=== PATIENT | female | born 1965 | race African-American/Black ===

== ENCOUNTER 2016-05-22 16:45 | Inpatient (IN) | payer OTHER, MEDICAID ==
[2016-05-22 17:56] VITALS: BMI 42.5
[2016-05-22] MEDS ORDERED: PHARMACY CONSULT - DOSE _____ XX SCH (18:00)
[2016-05-22] MEDS ORDERED: LEVAQUIN PREMIX IV 750 MG 750 MG/150 ML BAG IV SCH (18:00)
[2016-05-22] MEDS ORDERED: NS 1/2 1000 ML IV 1,000 ML IV ONE (18:45)
--- NOTE | 2016-05-22 18:50 | RAD ---
HISTORY: Pneumonia Study: PA and lateral chest Comparison: June 17, 2015 Findings: The trachea is midline. The cardiac silhouette is normal. There is a right subclavian Port-A-Cath w hich appears kinked as it passes underneath the clavicle. It projects into the left subclavian vein from the right.. The lungs are clear without focal infiltrate or effusion. The bony thorax is unre markable. IMPRESSION: 1. No acute cardiopulmonary disease. 2. Apparent kink of the right Port-A-Cath undo the right clavicle Reported By:
[2016-05-22] MEDS: TAMIFLU PO SCH ×2 (18:53→21:16)
[2016-05-22] MEDS: NS 1/2 1000 ML IV 1,000 ML IV SCH (18:54)
[2016-05-22] MEDS ORDERED: SALINE 3% 15 ML NEB TX NEB ONE (19:34)
[2016-05-22 19:37] LABS: BASOPHILS # (AUTO) 0.1 X10^3/uL (0.0-0.1); BASOPHILS % (AUTO) 0.9 % (0.2-1.0); EOSINOPHILS # (AUTO) 0.1 x10^3/uL (0.0-0.2); EOSINOPHILS % (AUTO) 1.4 % (0.9-2.9); HEMATOCRIT 38.9 % (36.0-47.0); HEMOGLOBIN 12.9 g/dL (12.0-16.0); LYMPHOCYTES # (AUTO) 2.6 X10^3/uL (1.3-2.9); LYMPHOCYTES % (AUTO) 28.7 % (21.0-51.0); MEAN CORPUSCULAR HEMOGLOBIN 24.9 pg (27.0-34.0); MEAN CORPUSCULAR HGB CONC 33.2 g/dL (33.0-35.0); MEAN PLATELET VOLUME 8.6 fL (7.4-11.0); MONOCYTES # (AUTO) 0.5 x10^3/uL (0.3-0.8); NEUTROPHILS # (AUTO) 5.8 x10^3/uL (2.2-4.8); PLATELET COUNT 237 X10^3/uL (150.0-450.0); RED BLOOD COUNT 5.18 X10^6/uL (3.5-5.4); RED CELL DISTRIBUTION WIDTH 16.1 % (11.6-16.5); WHITE BLOOD COUNT 9.1 X10^3/uL (3.6-10.0)
[2016-05-22 19:46] LABS: HYPOCHROMASIA SLIGHT; PLATELET MORPHOLOGY COMMENT NORMAL (NORMAL); TARGET CELLS FEW
[2016-05-22 21:02] LABS: ALANINE AMINOTRANSFERASE 85 Units/L (12-78); ALBUMIN 3.2 g/dL (3.4-5.0); ALKALINE PHOSPHATASE 217 Units/L (46-116); ASPARTATE AMINO TRANSFERASE 44 Units/L (15-37); BLOOD UREA NITROGEN 9 mg/dL (7-18); CALCIUM 8.5 mg/dL (8.5-10.1); CARBON DIOXIDE 24.8 mmol/L (21-32); CHLORIDE 99 mmol/L (98-107); COR CA(FOR HYPOALB) 9.1 mg/dL (8.5-10.1); COR NA(FOR HYPERGLY) 142 mmol/L (136-145); CREATININE 0.96 mg/dL (0.55-1.02); GLUCOSE 327 mg/dL (65-99); SODIUM 137 mmol/L (136-145); TOTAL PROTEIN 8.1 g/dL (6.4-8.2); eGFR BLACK RACES > 60 (>60); eGFR NON BLACK RACES > 60 (>60)
[2016-05-22] MEDS: ROBITUSSIN DM PO SCH (21:16)
[2016-05-22] MEDS: TUSSIONEX PENNKINETIC SUSP PO PRN (21:16)
[2016-05-22] MEDS: DUONEB 0.5 MG/3 MG NEB SCH (21:30)
[2016-05-22] MEDS: HUMULIN R SUBCUT PRN (22:47)
[2016-05-23] MEDS: PERCOCET TAB 5/325 MG PO PRN (03:59)
[2016-05-23] MEDS: HUMULIN R SUBCUT PRN ×4 (06:24→22:02)
[2016-05-23] MEDS ORDERED: [UNRECOGNIZED DRUG - OTHER] SUBCUT PRN (09:03)
[2016-05-23] MEDS ORDERED: PATIENT'S HOME MEDICATION RESPIRATORY (Oxycodone W/ Acetaminophen [Oxycodone/Acetaminophen PO PRN (09:10)
[2016-05-23] MEDS ORDERED: [UNRECOGNIZED DRUG - OTHER] PO SCH (09:15)
[2016-05-23] MEDS ORDERED: TORADOL 30 MG VIAL IVP PRN (09:28)
[2016-05-23] MEDS: DUONEB 0.5 MG/3 MG NEB SCH ×4 (09:42→21:18)
[2016-05-23] MEDS ORDERED: NS 1/2 1000 ML IV 1,000 ML IV ONE (10:10)
[2016-05-23] MEDS: NS 1/2 1000 ML IV 1,000 ML IV SCH ×2 (10:16→22:56)
[2016-05-23] MEDS: NORVASC TAB 10 MG PO SCH (10:17)
[2016-05-23] MEDS: ROBITUSSIN DM PO SCH ×4 (10:17→21:43)
[2016-05-23] MEDS: TAMIFLU PO SCH ×2 (10:18→21:43)
[2016-05-23] MEDS: CARAFATE PO SCH ×2 (10:18→21:44)
[2016-05-23] MEDS: JANUVIA PO SCH (10:18)
[2016-05-23] MEDS: ZANAFLEX PO SCH ×2 (10:18→21:43)
[2016-05-23] MEDS: AMARYL TAB 4 MG PO SCH ×2 (10:19→21:44)
[2016-05-23] MEDS: LINZESS PO SCH (10:19)
[2016-05-23] MEDS: CYMBALTA PO SCH (10:19)
[2016-05-23] MEDS: SINGULAIR TAB 10 MG PO SCH (10:19)
[2016-05-23] MEDS: DILAUDID IVP PRN ×3 (10:20→21:46)
[2016-05-23] MEDS: BENTYL CAP 10 MG PO SCH ×3 (12:35→21:43)
[2016-05-23] MEDS: LANTUS SC SCH ×2 (12:36→22:02)
[2016-05-23] MEDS ORDERED: [UNRECOGNIZED DRUG - OTHER] PO SCH (13:00)
--- NOTE | 2016-05-23 14:27 | DR.UPDATE ---
H&P Update History and Physical Update: H&P UPDATE FOR ADMISSION 05/22/16 MS. CUNNINGHAM'S H&P WAS COMPLETED IN OUR OFFICE PRIOR TO ADMISSION. SHE HAS BEEN SEEN AND EXAMINED WITH NO CHANGES NOTED.
--- NOTE | 2016-05-23 16:13 | PCM.PROG ---
Progress Note - Progress Note for Day of Date: 05/23/16 - Subjective Subjective: PATIENT REPORTS BODY ACHES AND PERSISTENT COUGH THIS MORNING. PATIENT IS ADMITTED FOR BRONCHOPNEUMONIA AND CONTINUES ON THE PNEUMONIA PROTOCOL. SHE REPORTS FATIGUE AND MALAISE. COUGH IS PERSISTENT, MOIST, NON- PRODUCTIVE. ON AUSCULTATION, LUNGS ARE NOTED WITH SCATTERED WHEEZING THROUGHOUT. PATIENT REPORTS ABDOMINAL PAIN AND IS NOTED WITH DIFFUSE TENDERNESS ON PALPATION. PATIENT HAS HAD A CT SCAN OF ABDOMEN ON 04/30/16 AND IT REPORTED CHRONIC FLUID COLLECTION IN THE LOW MIDLINE RECTUS ABDOMINUS MUSCLE THAT MAY REPRESENT A SEROMA. THIS IS A CHRONIC FINDING IT HAS BEEN SEEN ON A PRIOR CT OF ABDOMEN. THIS SEROMA WAS ASPIRATED ON 10/08/15 AND CULTURES WERE NEGATIVE. WE WILL CONTINUE WITH IV FLUIDS AND START IV TORADOL AND DILAUDID FOR PAIN. WE WILL CONTINUE IV LEVAQUIN, ROBITUSSIN, DUONEBS AND FOLLOW UP IN AM WITH LABS AND CHEST XRAY. - Past Medical Family Social History Past Med/Fam/Surg Hx: No changes since H&P Allergies: Allergies Aspirin Adverse Reaction (Mild, Verified 08/20/15 14:17) NAUSEA - Review of Systems ROS: No change since H&P - Vital Signs and I&O's Vital Signs: Temperature 98.7 F Pulse Rate [Right Superficial 94 Temporal] Pulse Rate 89 Respiratory Rate 16 Blood Pressure [Right Arm] 109/69 Blood Pressure [Left Arm] 133/69 Blood Pressure 133/69 O2 Sat by Pulse Oximetry 99 Intake and Output: Intake & Output 05/21/16 05/22/16 05/23/16 05/24/16 11:59 11:59 11:59 11:59 Intake Total 120 Output Total 1000 Balance -880 - Physical Exam Oriented: Normal, Time, Person, Place Eyes: Normal. negative: Blurred Vision, Diplopia, Discharge, Pain, Redness, Photophobia Ear: Normal. negative: Swelling, Ecchymosis, Hemotypanum, Abrasion, Laceration Nose: Normal. negative: Injected, Discharge, Blood Throat: Dry. negative: Tonsillar Hypertrophy, Exudate Respiratory: Generalized, Wheezes Cardiovascular: Normal. negative: Murmur, Edema : Normal. negative: Dysuria, Hematuria, Frequency, Discharge, Bleeding, Auscultation: Bowel Sounds: Normal. negative: Bruit Palpation: Normal. negative: Spleen Enlarged, Liver Enlarged, Mass Pulsatile Tenderness: Diffuse, Moderate. negative: Rebound, Guarding, Rigidity Skin: Normal. negative: Diaphoresis, Wound, Bruising, Ecchymosis Musculoskeletal: Normal Psychiatric: Normal Mood Description: Calm, Appropriate Affect: Normal Speech Pattern: Clear, Appropriate - Laboratory and Diagnostics Result Diagrams: 05/22/16 19:15 05/22/16 19:15 Labs: Laboratory WBC 9.1 X10^3/uL (3.6-10.0) 05/22/16 19:15 RBC 5.18 X10^6/uL (3.5-5.4) 05/22/16 19:15 Hgb 12.9 g/dL (12.0-16.0) 05/22/16 19:15 Hct 38.9 % (36.0-47.0) 05/22/16 19:15 MCV 75.0 fL (80.0-100.0) L 05/22/16 19:15 MCH 24.9 pg (27.0-34.0) L 05/22/16 19:15 MCHC 33.2 g/dL (33.0-35.0) 05/22/16 19:15 RDW 16.1 % (11.6-16.5) 05/22/16 19:15 Plt Count 237 X10^3/uL (150.0-450.0) 05/22/16 19:15 Plt Count Comment Adequate (ADEQUATE) 05/22/16 19:15 MPV 8.6 fL (7.4-11.0) 05/22/16 19:15 Neut % 64.0 % (42.0-75.0) 05/22/16 19:15 Lymph % 28.7 % (21.0-51.0) 05/22/16 19:15 Scott % 5.0 % (0.0-13.0) 05/22/16 19:15 Eos % 1.4 % (0.9-2.9) 05/22/16 19:15 Baso % 0.9 % (0.2-1.0) 05/22/16 19:15 Neut # 5.8 x10^3/uL (2.2-4.8) H 05/22/16 19:15 Lymph # 2.6 X10^3/uL (1.3-2.9) 05/22/16 19:15 Scott # 0.5 x10^3/uL (0.3-0.8) 05/22/16 19:15 Eos # 0.1 x10^3/uL (0.0-0.2) 05/22/16 19:15 Baso # 0.1 X10^3/uL (0.0-0.1) 05/22/16 19:15 Absolute Nucleated RBC 0.0 /100WBC 05/22/16 19:15 Plt Morphology Comment Normal (NORMAL) 05/22/16 19:15 RBC Morphology Abnormal (NORMAL) A 05/22/16 19:15 Hypochromasia Slight A 05/22/16 19:15 Target Cells Few 05/22/16 19:15 Sodium 137 mmol/L (136-145) 05/22/16 19:15 Corrected Sodium 142 mmol/L (136-145) 05/22/16 19:15 Potassium 3.9 mmol/L (3.5-5.1) 05/22/16 19:15 Chloride 99 mmol/L (98-107) 05/22/16 19:15 Carbon Dioxide 24.8 mmol/L (21-32) 05/22/16 19:15 BUN 9 mg/dL (7-18) 05/22/16 19:15 Creatinine 0.96 mg/dL (0.55-1.02) 05/22/16 19:15 Est GFR (MDRD) Af Amer > 60 (>60) 05/22/16 19:15 Est GFR (MDRD) Non-Af > 60 (>60) 05/22/16 19:15 Glucose 327 mg/dL (65-99) H 05/22/16 19:15 Calcium 8.5 mg/dL (8.5-10.1) 05/22/16 19:15 Corrected Calcium 9.1 mg/dL (8.5-10.1) 05/22/16 19:15 Ferritin 128 ng/mL (8-252) 05/23/16 10:52 Total Bilirubin 0.40 mg/dL (0.2-1.0) 05/22/16 19:15 AST 44 Units/L (15-37) H 05/22/16 19:15 ALT 85 Units/L (12-78) H 05/22/16 19:15 Alkaline Phosphatase 217 Units/L (46-116) H 05/22/16 19:15 Total Protein 8.1 g/dL (6.4-8.2) 05/22/16 19:15 Albumin 3.2 g/dL (3.4-5.0) L 05/22/16 19:15 Globulin 4.9 g/dL (2.5-4.5) H 05/22/16 19:15 Albumin/Globulin Ratio 0.7 Ratio (1.1-2.1) L 05/22/16 19:15 - Plan (1) Bronchopneumonia Status: Acute Plan: CONTINUE PNEUMONIA PROTOCOL: IV LEVAQUIN, DUONEBS, ROBITUSSIN, TUSSIONEX, CONTINUE TO MONITOR LABS AND CHEST XRAY. (2) Abdominal pain Status: Acute Qualifiers: Abdominal location: generalized Qualified Code(s): R10.84 - Generalized abdominal pain Plan: START TORADOL, DILAUDID, MONITOR. (3) Fever Status: Acute Qualifiers: Fever type: F Encounter type: E (4) Shortness of breath at rest Status: Acute (5) Arthritis Status: Chronic (6) Back pain, chronic Status: Chronic Qualifiers: Back pain location: low back pain Back pain laterality: midline Sciatica presence: with sciatica presence unspecified Sciatica laterality: S Qualified Code(s): M54.5 - Low back pain (7) Depression Status: Chronic Qualifiers: Depression Type: major depressive disorder Major depression recurrence: M Active/Remission status: currently active Major depression episode severity : moderate Psychotic features: P Trimester: T (8) Diabetes mellitus, type 2 Status: Chronic Qualifiers: Diabetes mellitus complication status: with neurologic complications Diabetes mellitus complication detail: with polyneuropathy Diabetic retinopathy severity: D Proliferative retinopathy type: P Diabetes mellitus macular edema: D Diabetes mellitus assisted insulin use: with manager intermediate use Laterality: L Chronic kidney disease stage: C Qualified Code(s): E11.42 - Type 2 diabetes mellitus with diabetic polyneuropathy; Z79.4 - longterm ( current) use of insulin (9) Elevated LFTs Status: Chronic (10) Essential hypertension Status: Chronic (11) GERD (gastroesophageal reflux disease) Status: Chronic Qualifiers: Esophagitis presence: esophagitis presence not specified Qualified Code(s) : K21.9 - Gastro-esophageal reflux disease without esophagitis (12) Generalized anxiety disorder Status: Chronic (13) History of asthma Status: Chronic (14) IBS (irritable bowel syndrome) Status: Chronic Qualifiers: Irritable bowel syndrome type: I
[2016-05-23] MEDS ORDERED: GLUCOPHAGE ONE ×2 (18:02→18:08)
[2016-05-23] MEDS: GLUCOPHAGE PO SCH (18:04)
[2016-05-23] MEDS: TUSSIONEX PENNKINETIC SUSP PO PRN (18:04)
[2016-05-23] MEDS: LEVAQUIN PREMIX IV 750 MG 750 MG/150 ML BAG IV SCH (18:04)
[2016-05-23] MEDS: XANAX PO SCH (21:44)
[2016-05-23] MEDS: NEURONTIN CAP 300 MG PO SCH (21:44)
[2016-05-23] MEDS: SNACK - Diabetic Appropriate PO SCH (22:01)
[2016-05-24] MEDS ORDERED: NS 1/2 1000 ML IV 1,000 ML IV ONE ×2 (00:08→14:06)
[2016-05-24] MEDS: NS 1/2 1000 ML IV 1,000 ML IV SCH ×2 (00:10→14:41)
[2016-05-24] MEDS: DILAUDID IVP PRN ×5 (04:53→22:10)
[2016-05-24] MEDS: HUMULIN R SUBCUT PRN ×4 (06:18→20:55)
[2016-05-24 06:23] LABS: BASOPHILS % (AUTO) 0.4 % (0.2-1.0); EOSINOPHILS # (AUTO) 0.1 x10^3/uL (0.0-0.2); EOSINOPHILS % (AUTO) 1.5 % (0.9-2.9); HEMATOCRIT 35.7 % (36.0-47.0); HEMOGLOBIN 11.6 g/dL (12.0-16.0); LYMPHOCYTES # (AUTO) 3.1 X10^3/uL (1.3-2.9); LYMPHOCYTES % (AUTO) 50.8 % (21.0-51.0); MEAN CORPUSCULAR HEMOGLOBIN 24.9 pg (27.0-34.0); MEAN CORPUSCULAR HGB CONC 32.6 g/dL (33.0-35.0); MEAN CORPUSCULAR VOLUME 76.3 fL (80.0-100.0); MEAN PLATELET VOLUME 8.4 fL (7.4-11.0); MONOCYTES # (AUTO) 0.4 x10^3/uL (0.3-0.8); NEUTROPHILS # (AUTO) 2.5 x10^3/uL (2.2-4.8); NEUTROPHILS % (AUTO) 40.3 % (42.0-75.0); PLATELET COUNT 234 X10^3/uL (150.0-450.0); RED BLOOD COUNT 4.68 X10^6/uL (3.5-5.4); RED CELL DISTRIBUTION WIDTH 16.2 % (11.6-16.5); WHITE BLOOD COUNT 6.2 X10^3/uL (3.6-10.0)
[2016-05-24 06:30] LABS: ALANINE AMINOTRANSFERASE 146 Units/L (12-78); ALBUMIN 2.8 g/dL (3.4-5.0); ALKALINE PHOSPHATASE 238 Units/L (46-116); ASPARTATE AMINO TRANSFERASE 142 Units/L (15-37); BLOOD UREA NITROGEN 6 mg/dL (7-18); CALCIUM 8.4 mg/dL (8.5-10.1); CARBON DIOXIDE 31.1 mmol/L (21-32); CHLORIDE 102 mmol/L (98-107); COR CA(FOR HYPOALB) 9.4 mg/dL (8.5-10.1); COR NA(FOR HYPERGLY) 141 mmol/L (136-145); CREATININE 0.85 mg/dL (0.55-1.02); GLUCOSE 181 mg/dL (65-99); SODIUM 139 mmol/L (136-145); TOTAL PROTEIN 7.4 g/dL (6.4-8.2); eGFR BLACK RACES > 60 (>60); eGFR NON BLACK RACES > 60 (>60)
[2016-05-24 07:03] LABS: PLATELET MORPHOLOGY COMMENT NORMAL (NORMAL)
[2016-05-24 07:04] LABS: HYPOCHROMASIA SLIGHT; TARGET CELLS FEW
[2016-05-24] MEDS ORDERED: GLUCOPHAGE ONE ×2 (07:04→16:41)
[2016-05-24] MEDS: GLUCOPHAGE PO SCH ×2 (07:05→16:51)
--- NOTE | 2016-05-24 07:50 | RAD ---
HISTORY: Pneumonia. Shortness of breath. Cough and congestion. Study: Chest one view Comparison: May 22, 2016. Findings: The trachea is midline. The cardiac silhouette is slightly enlarged. There is a right-sided Port-A- Cath catheter in place, the tip of which projects over the brachiocephalic vein on the left. The janet gs are clear without focal infiltrate or effusion. The bony thorax is unremarkable. IMPRESSION: 1. No acute cardiopulmonary disease. 2. Mild cardiomegaly. Reported By:
[2016-05-24] MEDS ORDERED: FIORICET #3 W/CODEINE CAP PO PRN (08:08)
[2016-05-24] MEDS: SINGULAIR TAB 10 MG PO SCH (08:52)
[2016-05-24] MEDS: TAMIFLU PO SCH ×2 (08:52→20:59)
[2016-05-24] MEDS: NORVASC TAB 10 MG PO SCH (08:52)
[2016-05-24] MEDS: LINZESS PO SCH (08:53)
[2016-05-24] MEDS: AMARYL TAB 4 MG PO SCH ×2 (08:53→20:55)
[2016-05-24] MEDS: BENTYL CAP 10 MG PO SCH ×4 (08:53→20:56)
[2016-05-24] MEDS: CARAFATE PO SCH ×2 (08:53→20:56)
[2016-05-24] MEDS: JANUVIA PO SCH (08:53)
[2016-05-24] MEDS: LANTUS SC SCH ×2 (08:54→20:56)
[2016-05-24] MEDS: ZANAFLEX PO SCH ×2 (08:54→21:00)
[2016-05-24] MEDS: ROBITUSSIN DM PO SCH ×4 (08:54→20:59)
[2016-05-24] MEDS: CYMBALTA PO SCH (08:58)
[2016-05-24] MEDS: MAGIC MOUTHWASH MT PRN ×2 (09:02→12:00)
[2016-05-24] MEDS: DUONEB 0.5 MG/3 MG NEB SCH ×4 (09:32→21:24)
[2016-05-24] MEDS: PERCOCET TAB 5/325 MG PO PRN ×2 (11:48→16:58)
[2016-05-24] MEDS: LEVAQUIN PREMIX IV 750 MG 750 MG/150 ML BAG IV SCH (17:02)
[2016-05-24] MEDS: SNACK - Diabetic Appropriate PO SCH (20:55)
[2016-05-24] MEDS: NEURONTIN CAP 300 MG PO SCH (20:59)
[2016-05-24] MEDS: XANAX PO SCH (21:00)
[2016-05-25] MEDS: NS 1/2 1000 ML IV 1,000 ML IV SCH ×4 (01:40→18:27)
[2016-05-25] MEDS ORDERED: NS 1/2 1000 ML IV 1,000 ML IV ONE ×2 (03:54→08:56)
[2016-05-25] MEDS: MAGIC MOUTHWASH MT PRN (03:57)
[2016-05-25] MEDS: DILAUDID IVP PRN ×5 (03:57→23:11)
[2016-05-25 06:30] LABS: ALANINE AMINOTRANSFERASE 141 Units/L (12-78); ALBUMIN 2.7 g/dL (3.4-5.0); ALKALINE PHOSPHATASE 224 Units/L (46-116); ASPARTATE AMINO TRANSFERASE 121 Units/L (15-37); BLOOD UREA NITROGEN 7 mg/dL (7-18); CALCIUM 8.3 mg/dL (8.5-10.1); CARBON DIOXIDE 31.6 mmol/L (21-32); CHLORIDE 102 mmol/L (98-107); COR CA(FOR HYPOALB) 9.3 mg/dL (8.5-10.1); GLUCOSE 80 mg/dL (65-99); SODIUM 141 mmol/L (136-145); TOTAL PROTEIN 7.2 g/dL (6.4-8.2); eGFR BLACK RACES > 60 (>60); eGFR NON BLACK RACES > 60 (>60)
[2016-05-25] MEDS ORDERED: GLUCOPHAGE ONE ×2 (06:34→16:55)
[2016-05-25] MEDS: GLUCOPHAGE PO SCH ×2 (06:38→17:12)
[2016-05-25 06:44] LABS: BASOPHILS % (AUTO) 0.2 % (0.2-1.0); EOSINOPHILS # (AUTO) 0.1 x10^3/uL (0.0-0.2); EOSINOPHILS % (AUTO) 1.2 % (0.9-2.9); HEMATOCRIT 34.4 % (36.0-47.0); HEMOGLOBIN 11.2 g/dL (12.0-16.0); LYMPHOCYTES # (AUTO) 3.7 X10^3/uL (1.3-2.9); LYMPHOCYTES % (AUTO) 50.2 % (21.0-51.0); MEAN CORPUSCULAR HEMOGLOBIN 24.7 pg (27.0-34.0); MEAN CORPUSCULAR HGB CONC 32.5 g/dL (33.0-35.0); MEAN CORPUSCULAR VOLUME 75.8 fL (80.0-100.0); MEAN PLATELET VOLUME 8.2 fL (7.4-11.0); MONOCYTES # (AUTO) 0.5 x10^3/uL (0.3-0.8); NEUTROPHILS # (AUTO) 3.1 x10^3/uL (2.2-4.8); NEUTROPHILS % (AUTO) 41.4 % (42.0-75.0); PLATELET COUNT 261 X10^3/uL (150.0-450.0); RED BLOOD COUNT 4.54 X10^6/uL (3.5-5.4); RED CELL DISTRIBUTION WIDTH 15.9 % (11.6-16.5); WHITE BLOOD COUNT 7.4 X10^3/uL (3.6-10.0)
[2016-05-25 08:19] LABS: HYPOCHROMASIA SLIGHT; PLATELET MORPHOLOGY COMMENT NORMAL (NORMAL); TARGET CELLS FEW
[2016-05-25] MEDS: DUONEB 0.5 MG/3 MG NEB SCH ×4 (08:37→20:27)
[2016-05-25] MEDS: JANUVIA PO SCH (08:57)
[2016-05-25] MEDS: TAMIFLU PO SCH (08:57)
[2016-05-25] MEDS: AMARYL TAB 4 MG PO SCH ×2 (08:57→20:50)
[2016-05-25] MEDS: CARAFATE PO SCH ×2 (08:58→20:51)
[2016-05-25] MEDS: NORVASC TAB 10 MG PO SCH (08:58)
[2016-05-25] MEDS: BENTYL CAP 10 MG PO SCH ×4 (08:58→20:50)
[2016-05-25] MEDS: PROTONIX TAB 40 MG PO SCH (08:58)
[2016-05-25] MEDS: ZANAFLEX PO SCH ×2 (08:58→21:00)
[2016-05-25] MEDS: SINGULAIR TAB 10 MG PO SCH (08:58)
[2016-05-25] MEDS: LINZESS PO SCH (08:58)
[2016-05-25] MEDS: LANTUS SC SCH ×2 (08:58→20:25)
[2016-05-25] MEDS: ROBITUSSIN DM PO SCH ×4 (08:59→20:52)
[2016-05-25] MEDS: CYMBALTA PO SCH (09:02)
[2016-05-25] MEDS: PERCOCET TAB 5/325 MG PO PRN ×3 (09:35→20:30)
[2016-05-25] MEDS: LEVSIN/MAALOX/LIDOC VISC PO PRN (13:25)
--- NOTE | 2016-05-25 15:20 | RAD ---
HISTORY: Pneumonia Study: Single view of the chest. Comparison: 05/24/2016 Findings: The cardiomediastinal silhouette is normal. No focal consolidations, pleural effusions or pneumothor ax. Again the Port-A-Cath terminates in the brachiocephalic vein.. IMPRESSION: 1. Port-A-Cath terminating in the brachiocephalic vein. Correlate with desired placement. 2. No acute cardiopulmonary abnormality. Reported By:
[2016-05-25] MEDS: LEVAQUIN PREMIX IV 750 MG 750 MG/150 ML BAG IV SCH (17:13)
[2016-05-25] MEDS: SNACK - Diabetic Appropriate PO SCH (20:50)
[2016-05-25] MEDS: ELAVIL PO SCH (20:51)
[2016-05-25] MEDS: NEURONTIN CAP 300 MG PO SCH (20:51)
[2016-05-25] MEDS: XANAX PO SCH (20:51)
[2016-05-25] MEDS ORDERED: XANAX PO SCH (21:00)
[2016-05-26] MEDS: DILAUDID IVP PRN ×4 (04:44→18:45)
[2016-05-26] MEDS: LEVSIN/MAALOX/LIDOC VISC PO PRN (04:45)
[2016-05-26] MEDS: NS 1/2 1000 ML IV 1,000 ML IV SCH ×2 (06:00→19:12)
[2016-05-26] MEDS ORDERED: NS 1/2 1000 ML IV 1,000 ML IV ONE ×2 (06:01→18:44)
[2016-05-26] MEDS: GLUCOPHAGE PO SCH ×3 (06:06→16:18)
[2016-05-26 06:11] LABS: BASOPHILS # (AUTO) 0.1 X10^3/uL (0.0-0.1); BASOPHILS % (AUTO) 0.8 % (0.2-1.0); EOSINOPHILS # (AUTO) 0.1 x10^3/uL (0.0-0.2); EOSINOPHILS % (AUTO) 1.3 % (0.9-2.9); HEMATOCRIT 33.7 % (36.0-47.0); HEMOGLOBIN 11.1 g/dL (12.0-16.0); LYMPHOCYTES % (AUTO) 41.6 % (21.0-51.0); MEAN CORPUSCULAR HEMOGLOBIN 24.8 pg (27.0-34.0); MEAN CORPUSCULAR HGB CONC 32.8 g/dL (33.0-35.0); MEAN CORPUSCULAR VOLUME 75.6 fL (80.0-100.0); MEAN PLATELET VOLUME 8.4 fL (7.4-11.0); MONOCYTES # (AUTO) 0.5 x10^3/uL (0.3-0.8); MONOCYTES % (AUTO) 6.8 % (0.0-13.0); NEUTROPHILS # (AUTO) 3.6 x10^3/uL (2.2-4.8); NEUTROPHILS % (AUTO) 49.5 % (42.0-75.0); PLATELET COUNT 262 X10^3/uL (150.0-450.0); RED BLOOD COUNT 4.46 X10^6/uL (3.5-5.4); RED CELL DISTRIBUTION WIDTH 16.5 % (11.6-16.5); WHITE BLOOD COUNT 7.2 X10^3/uL (3.6-10.0)
[2016-05-26 06:26] LABS: ALANINE AMINOTRANSFERASE 134 Units/L (12-78); ALBUMIN 2.6 g/dL (3.4-5.0); ALKALINE PHOSPHATASE 210 Units/L (46-116); ASPARTATE AMINO TRANSFERASE 96 Units/L (15-37); BLOOD UREA NITROGEN 7 mg/dL (7-18); CALCIUM 8.2 mg/dL (8.5-10.1); CARBON DIOXIDE 29.2 mmol/L (21-32); CHLORIDE 104 mmol/L (98-107); COR CA(FOR HYPOALB) 9.3 mg/dL (8.5-10.1); CREATININE 0.89 mg/dL (0.55-1.02); GLUCOSE 68 mg/dL (65-99); SODIUM 140 mmol/L (136-145); TOTAL PROTEIN 7.1 g/dL (6.4-8.2); eGFR BLACK RACES > 60 (>60); eGFR NON BLACK RACES > 60 (>60)
--- NOTE | 2016-05-26 06:28 | RAD ---
HISTORY: Cough, congestion Study: Chest one view Comparison: May 25, 2016, May 24, 2016 Findings: There is a port present on the right. Its tip is in the left brachiocephalic vein. The heart is uppe r limits normal in size. No congestive heart failure is noted. No acute alveolar infiltrates are robe ntified. No pleural effusions are present. The bony thorax is unremarkable. IMPRESSION: Lungs clear Reported By:
[2016-05-26 06:43] LABS: HYPOCHROMASIA SLIGHT; PLATELET MORPHOLOGY COMMENT NORMAL (NORMAL)
[2016-05-26] MEDS ORDERED: GLUCOPHAGE ONE ×2 (08:19→16:13)
[2016-05-26] MEDS: LANTUS SC SCH ×2 (08:34→20:30)
[2016-05-26] MEDS: AMARYL TAB 4 MG PO SCH ×2 (08:35→20:30)
[2016-05-26] MEDS: LINZESS PO SCH (08:37)
[2016-05-26] MEDS: BENTYL CAP 10 MG PO SCH ×4 (08:37→20:30)
[2016-05-26] MEDS: NORVASC TAB 10 MG PO SCH (08:37)
[2016-05-26] MEDS: CARAFATE PO SCH ×2 (08:37→20:30)
[2016-05-26] MEDS: ZANAFLEX PO SCH ×2 (08:37→20:30)
[2016-05-26] MEDS: SINGULAIR TAB 10 MG PO SCH (08:37)
[2016-05-26] MEDS: ROBITUSSIN DM PO SCH ×4 (08:37→20:30)
[2016-05-26] MEDS: JANUVIA PO SCH (08:37)
[2016-05-26] MEDS: PROTONIX TAB 40 MG PO SCH (08:37)
[2016-05-26] MEDS: CYMBALTA PO SCH (08:39)
[2016-05-26] MEDS: DUONEB 0.5 MG/3 MG NEB SCH ×4 (08:42→20:58)
[2016-05-26] MEDS: PEPCID 20 MG IV PREMIX* 20 MG/50 ML BAG IV SCH ×2 (11:07→20:30)
[2016-05-26] MEDS: LEVSIN/MAALOX/LIDOC VISC PO SCH ×3 (13:19→20:30)
[2016-05-26] MEDS: LEVAQUIN PREMIX IV 750 MG 750 MG/150 ML BAG IV SCH (17:04)
[2016-05-26] MEDS: SNACK - Diabetic Appropriate PO SCH (20:00)
[2016-05-26] MEDS: XANAX PO SCH (20:30)
[2016-05-26] MEDS: ELAVIL PO SCH (20:30)
[2016-05-26] MEDS: NEURONTIN CAP 300 MG PO SCH (20:30)
[2016-05-26] MEDS ORDERED: ATARAX TAB 25 MG PO SCH (21:00)
[2016-05-26] MEDS: PERCOCET TAB 5/325 MG PO PRN (21:58)
[2016-05-27] MEDS: DILAUDID IVP PRN ×4 (00:47→13:28)
[2016-05-27] MEDS ORDERED: GLUCOPHAGE ONE (05:28)
[2016-05-27 05:50] LABS: BASOPHILS % (AUTO) 0.5 % (0.2-1.0); EOSINOPHILS # (AUTO) 0.1 x10^3/uL (0.0-0.2); EOSINOPHILS % (AUTO) 1.7 % (0.9-2.9); HEMATOCRIT 33.6 % (36.0-47.0); LYMPHOCYTES # (AUTO) 3.1 X10^3/uL (1.3-2.9); LYMPHOCYTES % (AUTO) 44.3 % (21.0-51.0); MEAN CORPUSCULAR HEMOGLOBIN 24.8 pg (27.0-34.0); MEAN CORPUSCULAR HGB CONC 32.8 g/dL (33.0-35.0); MEAN CORPUSCULAR VOLUME 75.7 fL (80.0-100.0); MEAN PLATELET VOLUME 8.1 fL (7.4-11.0); MONOCYTES # (AUTO) 0.4 x10^3/uL (0.3-0.8); NEUTROPHILS # (AUTO) 3.4 x10^3/uL (2.2-4.8); NEUTROPHILS % (AUTO) 47.5 % (42.0-75.0); PLATELET COUNT 255 X10^3/uL (150.0-450.0); RED BLOOD COUNT 4.44 X10^6/uL (3.5-5.4); RED CELL DISTRIBUTION WIDTH 16.2 % (11.6-16.5); WHITE BLOOD COUNT 7.1 X10^3/uL (3.6-10.0)
[2016-05-27 06:02] LABS: ALANINE AMINOTRANSFERASE 103 Units/L (12-78); ALBUMIN 2.5 g/dL (3.4-5.0); ALKALINE PHOSPHATASE 192 Units/L (46-116); ASPARTATE AMINO TRANSFERASE 59 Units/L (15-37); BLOOD UREA NITROGEN 5 mg/dL (7-18); CALCIUM 8.3 mg/dL (8.5-10.1); CARBON DIOXIDE 28.4 mmol/L (21-32); CHLORIDE 106 mmol/L (98-107); COR CA(FOR HYPOALB) 9.5 mg/dL (8.5-10.1); CREATININE 0.92 mg/dL (0.55-1.02); GLUCOSE 65 mg/dL (65-99); SODIUM 142 mmol/L (136-145); TOTAL PROTEIN 6.9 g/dL (6.4-8.2); eGFR BLACK RACES > 60 (>60); eGFR NON BLACK RACES > 60 (>60)
[2016-05-27 06:09] LABS: HYPOCHROMASIA SLIGHT; PLATELET MORPHOLOGY COMMENT NORMAL (NORMAL); TARGET CELLS FEW
[2016-05-27] MEDS: GLUCOPHAGE PO SCH (06:17)
[2016-05-27] MEDS ORDERED: PROTONIX INJ 40 MG VIAL IVP SCH (09:00)
[2016-05-27] MEDS ORDERED: NS 1/2 1000 ML IV 1,000 ML IV ONE (09:30)
[2016-05-27] MEDS: DUONEB 0.5 MG/3 MG NEB SCH ×2 (09:31→12:13)
[2016-05-27] MEDS: PEPCID 20 MG IV PREMIX* 20 MG/50 ML BAG IV SCH (09:34)
[2016-05-27] MEDS: AMARYL TAB 4 MG PO SCH (09:34)
[2016-05-27] MEDS: JANUVIA PO SCH (09:34)
[2016-05-27] MEDS: LINZESS PO SCH (09:35)
[2016-05-27] MEDS: SINGULAIR TAB 10 MG PO SCH (09:35)
[2016-05-27] MEDS: ZANAFLEX PO SCH (09:35)
[2016-05-27] MEDS: BENTYL CAP 10 MG PO SCH (09:35)
[2016-05-27] MEDS: ROBITUSSIN DM PO SCH (09:35)
[2016-05-27] MEDS: NORVASC TAB 10 MG PO SCH (09:35)
[2016-05-27] MEDS: LEVSIN/MAALOX/LIDOC VISC PO SCH (09:35)
[2016-05-27] MEDS: CARAFATE PO SCH (09:36)
[2016-05-27] MEDS: NS 1/2 1000 ML IV 1,000 ML IV SCH (09:36)
[2016-05-27] MEDS: CYMBALTA PO SCH (09:37)
[2016-05-27 11:36] VITALS: BP 123/71
[2016-05-27] MEDS: LANTUS SC SCH (11:48)
--- NOTE | 2016-05-27 14:11 | PCM.PROG ---
Progress Note - Progress Note for Day of Date: 05/26/16 - Subjective Subjective: PATIENT CONTINUES TO REPORT HEART BURN THIS MORNING ALONG WITH GENERALIZED BODY ACHES AND PERSISTENT COUGH. PATIENT CONTINUES ON PNEUMONIA PROTOCOL FOR BRONCHOPNEUMONIA. SHE CONTINUES WITH FATIGUE AND MALAISE. COUGH IS PERSISTENT, MOIST, NON-PRODUCTIVE. ON AUSCULTATION, LUNGS CONTINUE WITH SCATTERED WHEEZING THROUGHOUT. PATIENT REPORTS ABDOMINAL PAIN CONTINUES, HOWEVER; IS SLIGHTLY IMPROVED. CBC WNL EXCEPT: H/H 11.1/33.7. CMP WNL EXCEPT: CALCIUM 8.2, AST 96, ALT 134, ALK PHOS 210, ALBUMIN 2.6. WE WILL CONTINUE WITH IV FLUIDS, DILAUDID, IV LEVAQUIN, ROBITUSSIN, DUONEBS AND FOLLOW UP IN AM WITH LABS AND CHEST XRAY. - Past Medical Family Social History Past Med/Fam/Surg Hx: No changes since H&P Allergies: Allergies Aspirin Adverse Reaction (Mild, Verified 08/20/15 14:17) NAUSEA - Review of Systems ROS: No change since H&P - Vital Signs and I&O's Vital Signs: Temperature 97.7 F Pulse Rate [Apical] 87 Pulse Rate [Right Superficial 87 Temporal] Pulse Rate 83 Respiratory Rate 12 Blood Pressure [Right Arm] 123/71 Blood Pressure [Left Arm] 133/69 Blood Pressure 133/69 O2 Sat by Pulse Oximetry 94 Intake and Output: Intake & Output 05/25/16 05/26/16 05/27/16 05/28/16 11:59 11:59 11:59 11:59 Intake Total 3020 2860 2895 Output Total 1000 2000 1200 Balance 2019 860 1695 - Physical Exam Oriented: Normal, Time, Person, Place Eyes: Normal. negative: Blurred Vision, Diplopia, Discharge, Pain, Redness, Photophobia Ear: Normal. negative: Swelling, Ecchymosis, Hemotypanum, Abrasion, Laceration Nose: Normal. negative: Injected, Discharge, Blood Throat: Dry. negative: Tonsillar Hypertrophy, Exudate Respiratory: Generalized, Wheezes Cardiovascular: Normal. negative: Murmur, Edema : Normal. negative: Dysuria, Hematuria, Frequency, Discharge, Bleeding, Auscultation: Bowel Sounds: Normal. negative: Bruit Palpation: Normal. negative: Spleen Enlarged, Liver Enlarged, Mass Pulsatile Tenderness: Diffuse, Mild. negative: Rebound, Guarding, Rigidity Skin: Normal. negative: Diaphoresis, Wound, Bruising, Ecchymosis Musculoskeletal: Normal Psychiatric: Normal Mood Description: Calm, Appropriate Affect: Normal Speech Pattern: Clear, Appropriate - Laboratory and Diagnostics Result Diagrams: 05/27/16 05:20 05/27/16 05:20 Labs: 05/22/16 19:15 Blood Blood Culture - Final 05/22/16 18:55 Blood Blood Culture - Final Laboratory WBC 7.1 X10^3/uL (3.6-10.0) 05/27/16 05:20 RBC 4.44 X10^6/uL (3.5-5.4) 05/27/16 05:20 Hgb 11.0 g/dL (12.0-16.0) L 05/27/16 05:20 Hct 33.6 % (36.0-47.0) L 05/27/16 05:20 MCV 75.7 fL (80.0-100.0) L 05/27/16 05:20 MCH 24.8 pg (27.0-34.0) L 05/27/16 05:20 MCHC 32.8 g/dL (33.0-35.0) L 05/27/16 05:20 RDW 16.2 % (11.6-16.5) 05/27/16 05:20 Plt Count 255 X10^3/uL (150.0-450.0) 05/27/16 05:20 Plt Count Comment Adequate (ADEQUATE) 05/27/16 05:20 MPV 8.1 fL (7.4-11.0) 05/27/16 05:20 Neut % 47.5 % (42.0-75.0) 05/27/16 05:20 Lymph % 44.3 % (21.0-51.0) 05/27/16 05:20 Atkinson % 6.0 % (0.0-13.0) 05/27/16 05:20 Eos % 1.7 % (0.9-2.9) 05/27/16 05:20 Baso % 0.5 % (0.2-1.0) 05/27/16 05:20 Neut # 3.4 x10^3/uL (2.2-4.8) 05/27/16 05:20 Lymph # 3.1 X10^3/uL (1.3-2.9) H 05/27/16 05:20 Atkinson # 0.4 x10^3/uL (0.3-0.8) 05/27/16 05:20 Eos # 0.1 x10^3/uL (0.0-0.2) 05/27/16 05:20 Baso # 0.0 X10^3/uL (0.0-0.1) 05/27/16 05:20 Absolute Nucleated RBC 0.1 /100WBC 05/27/16 05:20 Plt Morphology Comment Normal (NORMAL) 05/27/16 05:20 RBC Morphology Abnormal (NORMAL) A 05/27/16 05:20 Hypochromasia Slight A 05/27/16 05:20 Target Cells Few 05/27/16 05:20 Sodium 142 mmol/L (136-145) 05/27/16 05:20 Corrected Sodium TNP 05/27/16 05:20 Potassium 4.1 mmol/L (3.5-5.1) 05/27/16 05:20 Chloride 106 mmol/L (98-107) 05/27/16 05:20 Carbon Dioxide 28.4 mmol/L (21-32) 05/27/16 05:20 BUN 5 mg/dL (7-18) L 05/27/16 05:20 Creatinine 0.92 mg/dL (0.55-1.02) 05/27/16 05:20 Est GFR (MDRD) Af Amer > 60 (>60) 05/27/16 05:20 Est GFR (MDRD) Non-Af > 60 (>60) 05/27/16 05:20 Glucose 65 mg/dL (65-99) 05/27/16 05:20 Calcium 8.3 mg/dL (8.5-10.1) L 05/27/16 05:20 Corrected Calcium 9.5 mg/dL (8.5-10.1) 05/27/16 05:20 Ferritin 128 ng/mL (8-252) 05/23/16 10:52 Total Bilirubin 0.20 mg/dL (0.2-1.0) 05/27/16 05:20 AST 59 Units/L (15-37) H 05/27/16 05:20 ALT 103 Units/L (12-78) H 05/27/16 05:20 Alkaline Phosphatase 192 Units/L (46-116) H 05/27/16 05:20 Total Protein 6.9 g/dL (6.4-8.2) 05/27/16 05:20 Albumin 2.5 g/dL (3.4-5.0) L 05/27/16 05:20 Globulin 4.4 g/dL (2.5-4.5) 05/27/16 05:20 Albumin/Globulin Ratio 0.6 Ratio (1.1-2.1) L 05/27/16 05:20 - Plan (1) Bronchopneumonia Status: Acute Plan: CONTINUE PNEUMONIA PROTOCOL: IV LEVAQUIN, DUONEBS, ROBITUSSIN, TUSSIONEX, CONTINUE TO MONITOR LABS AND CHEST XRAY. (2) Abdominal pain Status: Acute Qualifiers: Abdominal location: generalized Qualified Code(s): R10.84 - Generalized abdominal pain Plan: CONTINUE DILAUDID, MONITOR. (3) Fever Status: Acute Qualifiers: Fever type: F Encounter type: E (4) Shortness of breath at rest Status: Acute (5) Arthritis Status: Chronic (6) Back pain, chronic Status: Chronic Qualifiers: Back pain location: low back pain Back pain laterality: midline Sciatica presence: with sciatica presence unspecified Sciatica laterality: S Qualified Code(s): M54.5 - Low back pain (7) Depression Status: Chronic Qualifiers: Depression Type: major depressive disorder Major depression recurrence: M Active/Remission status: currently active Major depression episode severity : moderate Psychotic features: P Trimester: T (8) Diabetes mellitus, type 2 Status: Chronic Qualifiers: Diabetes mellitus complication status: with neurologic complications Diabetes mellitus complication detail: with polyneuropathy Diabetic retinopathy severity: D Proliferative retinopathy type: P Diabetes mellitus macular edema: D Diabetes mellitus penitentiary insulin use: with indirect fire infantryman use Laterality: L Chronic kidney disease stage: C Qualified Code(s): E11.42 - Type 2 diabetes mellitus with diabetic polyneuropathy; Z79.4 - long-term ( current) use of insulin (9) Elevated LFTs Status: Chronic (10) Essential hypertension Status: Chronic (11) GERD (gastroesophageal reflux disease) Status: Chronic Qualifiers: Esophagitis presence: esophagitis presence not specified Qualified Code(s) : K21.9 - Gastro-esophageal reflux disease without esophagitis (12) Generalized anxiety disorder Status: Chronic (13) History of asthma Status: Chronic (14) IBS (irritable bowel syndrome) Status: Chronic Qualifiers: Irritable bowel syndrome type: I
[2016-05-27 15:12] LABS: HEPATITIS A ANTIBODY IGM Negative (Negative)
[2016-05-28 06:21] LABS: HEPATITIS B CORE IGM Negative (Negative); HEPATITIS B SURFACE ANTIGEN Negative (Negative)
== END 2016-05-27 14:30 | disposition home or self-care (01) | DRG 195 ==
LOC: ICU 16:45 → OBSVTOIN 05-24 08:00
PROVIDERS: ADMIT Internal Medicine; ATTEND Internal Medicine
DX: J18.0 Bronchopneumonia, unspecified organism (principal); R06.02 Shortness of breath; E11.65 Type 2 diabetes mellitus with hyperglycemia; R10.84 Generalized abdominal pain; R50.9 Fever, unspecified; M13.89 Other specified arthritis, multiple sites; M54.5 Low back pain; F32.89 Other specified depressive episodes; R74.8 Abnormal levels of other serum enzymes; I10 Essential (primary) hypertension; K21.9 Gastro-esophageal reflux disease without esophagitis; F41.8 Other specified anxiety disorders; K58.8 Other irritable bowel syndrome; M79.7 Fibromyalgia; R53.83 Other fatigue; Z79.4 Long term (current) use of insulin
CPT/HCPCS: 36415; 71010; 71020; 80053; 80074; 82728; 85025; 87040; 94640; A4222; C9113; G9035; S0028; G0378; J1815; J1956; J7620

== ENCOUNTER 2016-06-05 23:33 | Emergency (ER) | payer OTHER, MEDICAID ==
[2016-06-05 23:42] VITALS: BP 142/82; BMI 40.7
--- NOTE | 2016-06-05 23:49 | DR.GENAD ---
HPI - PCP Primary Care Physician: JOHNSON - Complaint/Symptoms Chief Complaint:: NECK SWELLING - Nurses notes reviewed Nurses Notes Review: Yes - Source History Provided: Patient - Mode of Arrival Mode of Arrival: Ambulatory - Timing Onset of Chief Complaint: 06/05/16 Came on: Gradually - Duration Duration: Constant How lon Duration: Hours - Location Location: left neck - Severity Severity: Moderate - Modifying Factors Worsens:: palpation - Associated Signs and Symptoms Associated Signs and Symptoms: tenderness PMH - PMH Past Medical History: Yes Past Medical History: Anxiety, Arthritis, Diabetes, Hypertension Past Surgical History: Yes Surgical History: Cholecystectomy, Hysterectomy - Family History History of Family Medical Conditions: Yes Family Medical History: Diabetes Mellitus, Cancer, Coronary Artery Disease, Hypertension - Social History Does any household member use tobacco: No Alcohol Use: None Do you use any recreational Drugs:: No Lives With: Family Lives Where: Home - infectious screening In the last 2 months have you had wt loss of >10#?: NO Have you had fever, night sweats or hemotysis?: No Have you traveled outside the country in the last 6 months?: No Isolation: Standard ROS - Review of Systems Constitutional: No Symptoms Reported Eyes: No Symptoms Reported ENTM: Throat Swelling Respiratoy: No Symptoms Reported Cardiovascular: No Symptoms Reported Gastrointestinal/Abdominal: No Symptoms Reported Genitourinary: No Symptoms Reported Neurological: No Symptoms Reported Musculoskeletal: No Symptoms Reported Integumentary: No Symptoms Reported Hematologic/Lymphatic: No Symptoms Reported Endocrine: No Symptoms Reported Psychiatric: Depression PE - Vital Signs Vitals: Temperature 97.9 F Pulse Rate 111 Respiratory Rate 16 Blood Pressure [Right Arm] 123/71 Blood Pressure [Left Arm] 133/69 Blood Pressure 142/82 O2 Sat by Pulse Oximetry 100 - General Limitations: No Limitations General Appearance: Alert, In No Apparent Distress - Head Head Exam: Normal Inspection - Eyes Eye exam: EOMI. negative: Scleral Icterus, Conjunctival Injection - ENT ENT Exam: Normal Exam, Normal Oropharynx, Normal External Ear Exam, TM's Normal Bilaterally, Other (swelling left submandibular area, tender). negative : Mucous Membranes Dry External Ear Exam: Normal External Inspection Nose Exam: Normal Nose Exam Mouth Exam: Normal Inspection. negative: Drooling, Trismus, Lip Swelling, Tongue Elevation, Tongue Swelling Throat Exam: Normal Inspection, Tonsillar Erythema. negative: Tonsillar Exudate , Muffled Voice - Neck Neck Exam: Normal Inspection, Trachea Midline - Chest Chest Inspection: Normal Inspection - Respiratory Respiratory Exam: Normal Lung Sounds Bilat. negative: Accessory Muscle Use, Respiratory Distress Respiratory Exam: Bilateral Clear to Auscultation - Cardiovascular Cardiovascular Exam: Regular Rate - Extremities Extremities Exam: Normal Inspection, Full ROM - Back Back Exam: Normal Inspection, Full ROM - Neurologic Neurological Exam: Alert, Oriented X3, CN II-XII Intact - Psychiatric Psychiatric Exam: Normal Mood - Skin Skin Exam: Intact, Normal Color ROR - XRAY XRAY Interpreted by: Radiologist XRAY Findings: CT soft tissue neck:submandibular stones - Diagnosis Discharge Problem: Submandibular duct obstruction - Discharge Plan Condition: Stable Prescriptions: Amoxicillin & Pot Clavulanate [AUGMENTIN TAB 875 mg/125 mg *] 1 tab PO BID #20 tab Prednisone [Prednisone DS Dosepak 10 mg (12 day)] 1 tawnya PO ONCE #1 tawnya - Follow ups/Referrals Follow ups/Referrals: Kings Hauser [Primary Care Provider] - 3 days - Instructions
[2016-06-06] MEDS ORDERED: BENADRYL INJ 50 MG VIAL IVP ONE (00:38)
[2016-06-06] MEDS ORDERED: SOLU-MEDROL 125 MG VIAL IVP ONE (00:38)
[2016-06-06] MEDS ORDERED: BENADRYL INJ 50 MG VIAL ONE (00:39)
[2016-06-06] MEDS ORDERED: SOLU-MEDROL 125 MG VIAL ONE (00:39)
--- NOTE | 2016-06-06 00:40 | CT ---
CT soft tissue neck without contrast Indication:: swollen left submandibular area Comparison: none available Technique: Multiple axial images of the soft tissue neck were obtained from skull base to the aortic arch without the administration of IV contrast. Sagittal and coronal reformats were performed and reviewed. Radiation dose reduction techniques were performed utilizing adjustment for MA/kVP based on patient body size. Findings: There is moderate enlargement of the left submandibular gland with decreased attenuation and moderat e amount of perisubmandibular stranding and platysmal thickening. Enlarged left submandibular lymph nodes are noted. There are several enlarged, adjacent stones noted within the medial aspect of the left submandibular gland on axial image 62 likely representing stones within the submandibular duct. The visualized portions of the posterior fossa and orbits are unremarkable in appearance. The parot id is unremarkable unremarkable. Round calcified nodule within the lower pole of the left thyroid l obe measures approximately 8 mm. The carotid space on the right and left is unremarkable. No mass o r significant lymphadenopathy can be identified. The prevertebral and paraspinous regions are unre markable. The nasopharynx, oropharynx, hypopharynx are unremarkable. The larynx appears symmetric. The vascular structures are unremarkable in their appearance. The aortic arch is unremarkable. T he visualized portions of the mediastinum are unremarkable as well. The bony structures appear inta ct. The visualized portions of the lung apex on the right and left are unremarkable as well. IMPRESSION: Moderate enlargement with decreased attenuation of the left submandibular gland with surrounding inf lammatory change and enlarged lymph nodes are consistent with acute left submandibular sialadenitis. Large calcifications noted within the medial aspect of the left submandibular gland likely represen t stones within the submandibular duct and source of sialadenitis. Peripherally calcified approximate 8 mm nodule within the lower pole left thyroid lobe. Reported By:
[2016-06-06] MEDS ORDERED: AUGMENTIN 500 MG/125 MG TAB PO ONE ×2 (01:15)
[2016-06-06] MEDS: AUGMENTIN 875 MG/125 MG TAB PO SCH (01:24)
== END 2016-06-06 01:32 | disposition home or self-care (01) ==
LOC: ER 23:46
DX: K11.8 Other diseases of salivary glands (principal)
CPT/HCPCS: 70490; 96365; 96374; 96375; 99283; A4222; J1200; J2930

== ENCOUNTER → 2016-12-15 | Outpatient (CLI) | payer OTHER, MEDICAID ==
[~2016-12-15] MED LIST: NS 100 ML IV 100 ML IV ONE
[2016-12-15 10:29] LABS: CREATININE 1.26 mg/dL (0.55-1.02)
--- NOTE | 2016-12-15 14:22 | CT ---
CT OF THE ABDOMEN AND PELVIS WITHOUT AND WITH CONTRAST HISTORY: Abdominal pain. History abscess. Comparison: 04/30/2016 Technique: Multiple axial images of the abdomen and pelvis were obtained from the lung bases to the pubic symphy sis before and following the administration of IV contrast. Dose reduction techniques including Aut omated Exposure Control (AEC) and adjustment of mA and kV were utlized. Findings: The heart is normal in size. There is no pericardial effusion. Lung bases are clear without focal con solidation, pleural effusion or pneumothorax. Abdomen without: Gallbladder absent. No renal stones. Abdomen with: Liver and spleen are normal in size, enhancement characteristics and contour. No focal lesions. The portal vein is patent. No ductal dilitation. Gallbladder absent. The pancreas is unremar kable. Adrenal glands are normal. Kidneys enhance symmetrically without hydronephrosis. No bowel obstruction or inflammation. No abnormal appearing mesenteric or retroperitoneal lymph node s. Redemonstrated within the low anterior abdominal wall is a 6.5 x 3.0 cm fluid collection in the re gion of prior hernia repair. This is essentially unchanged from prior. Pelvis without: No distal ureteral stones or bladder stones. Pelvis with: The bladder is normal in appearance. Uterus and ovaries not well seen. No free fluid or abnormal pelvic lymph nodes. No aggressive osseous lesions. IMPRESSION: 1. Unchanged chronic fluid collection in the anterior abdominal wall in region of prior hernia repai r. This likely represents a seroma. It should be noted that dual phase CT (with and without contrast) is neither recommended nor required in most situations and should be reserved for patients with known, specific solid organ lesions, hem aturia and few other select indications. [email or web address] Reported By:
== END ==
LOC: RAD 10:03
PROVIDERS: ATTEND Nurse Practitioner Family
DX: R10.84 Generalized abdominal pain (principal); R50.9 Fever, unspecified; Z87.19 Personal history of other diseases of the digestive system
CPT/HCPCS: 36415; 74178; 82565; 84520; A4222

== ENCOUNTER 2016-12-21 14:48 | Emergency (ER) | payer OTHER, MEDICAID ==
[2016-12-21 14:58] VITALS: BMI 37.9
[2016-12-21] MEDS ORDERED: CLEOCIN PO ONE (17:17)
--- NOTE | 2016-12-21 17:17 | DR.GENAD ---
HPI - PCP Primary Care Physician: DR. ORNELAS - HPI Comment HPI Comment: Draining Boil - Complaint/Symptoms Chief Complaint:: PT STATES "I HAVE A CYST ON MY LEFT LEG AND BOTTOM, ON MY PANTY LINE" Self Treatment fo Chief Complaint: "I'M ALSO HAVING HEADACHES FOR SOME REASON." - Nurses notes reviewed Nurses Notes Review: Yes - Source History Provided: Patient - Mode of Arrival Mode of Arrival: Ambulatory - Timing Onset of Chief Complaint: 12/21/16 Came on: Gradually - Location Location: Lt. inguinal area - Severity Severity: Moderate - Modifying Factors Worsens:: nothing Improves:: nothing - Associated Signs and Symptoms Associated Signs and Symptoms: pain/tenderness in said area. PMH - PMH Past Medical History: Yes Past Medical History: Arthritis, Asthma, COPD, Diabetes Past Medical History Comment: LOW BLOOD PRESSURE Past Surgical History: Yes Surgical History: Cholecystectomy, Hysterectomy Past Surgical History Comment: POLYNILE CYST. PT STATES "REMOVAL OF NAVEL - MY LOWER INTESTINE BURST" - Family History History of Family Medical Conditions: Yes Family Medical History: Diabetes Mellitus, Cancer, Coronary Artery Disease, Heart Failure, Hypertension - Social History Does patient currently use any type of tobacco product: No Have you used tobacco products in the last 12 months: No Type of Tobacco Use: None Does any household member use tobacco: Yes Alcohol Use: None Do you use any recreational Drugs:: No Lives With: Spouse Lives Where: Home - infectious screening In the last 2 months have you had wt loss of >10#?: NO Have you had fever, night sweats or hemotysis?: No Have you traveled outside the country in the last 6 months?: No Isolation: Standard ROS - Review of Systems Constitutional: No Symptoms Reported Eyes: No Symptoms Reported ENTM: No Symptoms Reported Respiratoy: No Symptoms Reported Cardiovascular: No Symptoms Reported Gastrointestinal/Abdominal: No Symptoms Reported Genitourinary: No Symptoms Reported Neurological: No Symptoms Reported Musculoskeletal: No Symptoms Reported Integumentary: Other (draining boil, Lt. inguinal area.) Endocrine: No Symptoms Reported Psychiatric: No Symptoms Reported All Other Systems: Reviewed and Negative PE - Vital Signs Vitals: Temperature 97.6 F Pulse Rate 119 Respiratory Rate 20 Blood Pressure [Right Arm] 123/71 Blood Pressure [Left Arm] 133/69 Blood Pressure 92/60 O2 Sat by Pulse Oximetry 98 - General Limitations: No Limitations General Appearance: Alert, In No Apparent Distress - Head Head Exam: Normal Inspection - Eyes Eye exam: Normal Appearance, PERRL, EOMI - ENT ENT Exam: Normal Exam - Neck Neck Exam: Normal Inspection - Chest Chest Inspection: Normal Inspection, Symmetric Chest Wall Rise - Respiratory Respiratory Exam: Normal Lung Sounds Bilat Respiratory Exam: Bilateral Clear to Auscultation - Abdominal Exam Abdominal Exam: Normal Bowel Sounds, Soft, Incision (healed, vertical scar) - Extremities Extremities Exam: Normal Inspection, Full ROM - Back Back Exam: Normal Inspection - Neurologic Neurological Exam: Alert, Oriented X3 - Psychiatric Psychiatric Exam: Normal Affect, Normal Mood - Skin Skin Exam: Other (An open boil boil in right inguinal area that is draining a pinkish, creamy exudate with foul odor. ) Course - Education/Counseling Education/Counseling: Patient, Family Educated On: Treatment, Diagnosis, Needs for Follow Up - Diagnosis Discharge Problem: Abscess - Discharge Plan Disposition: 01 HOME, SELF-CARE Condition: Good - Follow ups/Referrals Follow ups/Referrals: Kings Ornelas [Primary Care Provider] - 3 days - Instructions Instructions: Abscess, [id number]
[2016-12-21] MEDS ORDERED: FIORICET TAB PO ONE ×2 (17:19→17:33)
[2016-12-21] MEDS ORDERED: CLEOCIN ONE (17:33)
[2016-12-21 17:42] VITALS: BP 104/68
== END 2016-12-21 17:43 | disposition home or self-care (01) ==
LOC: ER 15:05
DX: L02.214 Cutaneous abscess of groin (principal)
CPT/HCPCS: 87070; 87075; 87205; 99282

== ENCOUNTER 2016-12-24 08:23 | Day surgery (SDC) | payer OTHER, MEDICAID ==
[2016-12-24] MEDS ORDERED: FENTANYL INJ 100 mcg ONE (08:28)
[2016-12-24] MEDS ORDERED: NS 1000 ML 1,000 ML ONE (08:35)
[2016-12-24] MEDS ORDERED: ANCEF VIAL 1 GM ONE (08:36)
[2016-12-24] MEDS ORDERED: NS 100 ML IV 100 ML IV ONE (08:36)
[2016-12-24] MEDS ORDERED: MARCAINE 0.25% INJ ONE (08:54)
[2016-12-24] MEDS ORDERED: XYLOCAINE 1 % (PLAIN) ONE (08:54)
[2016-12-24] MEDS ORDERED: HumuLIN R ONE ×2 (09:04→10:41)
[2016-12-24] MEDS ORDERED: NS IRRIGATION 1000 ML 1,000 ML IR ONE (09:50)
[2016-12-24] MEDS ORDERED: VERSED ONE (10:03)
[2016-12-24] MEDS ORDERED: NEO-SYNEPHRINE INJ ONE (10:03)
[2016-12-24] MEDS ORDERED: QUELICIN (OR ANECTINE) ONE (10:03)
[2016-12-24] MEDS ORDERED: EPHEDRINE SULFATE INJ ONE (10:03)
[2016-12-24] MEDS ORDERED: DIPRIVAN VIAL ONE (10:03)
[2016-12-24] MEDS ORDERED: ZOFRAN INJ 4 MG VIAL ONE (10:03)
[2016-12-24] MEDS ORDERED: DILAUDID INJ IVP PRN (10:38)
[2016-12-24] MEDS ORDERED: REGLAN INJ 10 MG VIAL IVP PRN (10:38)
[2016-12-24] MEDS ORDERED: ZOFRAN INJ 4 MG VIAL IVP PRN (10:38)
[2016-12-24] MEDS ORDERED: PHENERGAN INJ 25 MG IVP PRN (10:38)
[2016-12-24] MEDS ORDERED: BENADRYL INJ 50 MG VIAL IVP PRN (10:38)
--- NOTE | 2016-12-24 10:53 | OR.GENERIC ---
Post-Op Note Generic - Post-Op Note Operative Report: Date of Operation: December 24, 2016 Pre-Operative Diagnosis: 1. Left anterior thigh abscess. 2. Left superior labial abscess. 3. Right anterior perineal abscess. Post-Operative Diagnosis: 1. Left anterior thigh abscess (6 cm diameter). 2. Left superior labial abscess ( 2 cm). 3. Right anterior perineal abscess (2-1/2 cm). Procedures: 1. Incision and drainage of left anterior thigh abscess with excisional debridement of necrotic subcutaneous tissue using electrocautery. 2. Incision and drainage of left superior labial abscess. 3. Incision and drainage of right anterior perineal abscess. Surgeon: Isidro Schultz MD. Anethetist: Delphine Joyce CRNA. Anesthesia: General endotracheal and local. Specimen: Wound culture. Estimated blood loss: Minimal Complications: None Summary: The patient is a 51 year old female with poorly controlled diabetes mellitus who presented with multiple abscesses. The left anterior thigh abscess had been present for 3 weeks. The patient was offered incision and drainage. The risk and benefits of the procedure including difficulty with anesthesia, bleeding, infection, scar formation, delayed healing, as well as recurrence were discussed with the patient. The patient understood these risks and requested the procedure. On December 24, 2016, the patient was brought to the operative theatre. A time out was performed verifying the patient and the procedure. After satisfactory induction of monitored anesthesia care, the left thigh was prepped with Chloraprep and draped in the usual fashion. Local anesthetic was infiltrated around the area of induration. A small skin defect was noted with purulent drainage. Cultures were obtained. A small core of skin was removed sharply. All loculations were disrupted bluntly. Necrotic tissue was present in the abscess cavity. All necrotic tissue was removed using blunt dissection and electrocautery. The abscess cavity was copiously irrigated. Next, the wound was packed with 1 Iodoform. A sterile dressing was placed. Next, the labia and perineum were prepped and draped in the usual fashion. The left superior labial abscess was anesthetized using local. An incision was made with immediate drainage of pus. The opening was enlarged bluntly. All loculations were disrupted bluntly. The abscess was packed with Iodoform. In a similar manner, the right anterior perineal abscess was drained and packed. Dressings were placed. The patient was awakened and taken to the recovery room in stable condition. There were no complications. All counts were correct.
[2016-12-24] MEDS ORDERED: NORCO 5/325 MG TAB ONE (11:19)
[2016-12-24 12:04] VITALS: BP 129/83
== END 2016-12-24 11:51 | disposition home or self-care (01) ==
LOC: SURG1 08:23
PROVIDERS: ATTEND Student in an Organized Health Care Education/Training Program
PROC: 0J9M3ZX Drainage of Left Upper Leg Subcutaneous Tissue and Fascia, Percutaneous Approach, Diagnostic (ICD-10-PCS; 2016-12-24)
PROC: 0U9MXZX Drainage of Vulva, External Approach, Diagnostic (ICD-10-PCS; 2016-12-24)
PROC: 0J9C3ZX Drainage of Pelvic Region Subcutaneous Tissue and Fascia, Percutaneous Approach, Diagnostic (ICD-10-PCS; principal; 2016-12-24 10:15)
DX: L02.215 Cutaneous abscess of perineum (principal); L02.416 Cutaneous abscess of left lower limb; N76.4 Abscess of vulva
CPT/HCPCS: 87070; 87075; 87205; A4216; A4222; S0020; J0330; J0690; J1815; J2001; J2250; J2370; J2405; J3010; J3490

== ENCOUNTER → 2017-02-10 | Outpatient (CLI) | payer OTHER, MEDICAID ==
[2017-01-21 18:42] VITALS: BP 116/74
--- NOTE | 2017-02-10 13:21 | CT ---
HEAD CT WITHOUT IV CONTRAST CLINICAL INDICATION: Blurred vision with frequent falls TECHNIQUE: Axial CT images from skull base to vertex without IV contrast.Dose reduction techniques in cluding Automated Exposure Control (AEC) and adjustment of mA and kV were utlized. COMPARISON: MRI 10/03/2015 FINDINGS: There is no abnormal brain parenchymal density. There is no evidence of acute infarction, intracrani al hemorrhage, mass or mass effect, or abnormal extra-axial collection. The density of the larger dur al venous sinuses is normal. The ventricles are normal in size, shape and position. The skull base an d calvarium are normal. Redemonstration of left frontal mucous retention cyst. IMPRESSION: 1. No acute intracranial abnormality. Reported By:
== END | disposition home or self-care (01) ==
LOC: RAD 12:15
PROVIDERS: ATTEND Internal Medicine
DX: R42 Dizziness and giddiness (principal); H53.8 Other visual disturbances; W19.XXXA Unspecified fall, initial encounter
CPT/HCPCS: 70450

== ENCOUNTER 2017-03-23 19:05 | Emergency (ER) | payer OTHER, MEDICAID ==
[2017-03-23 19:15] VITALS: BMI 36.9
[2017-03-23] MEDS ORDERED: NS 1000 ML 1,000 ML IV ONE ×2 (19:32→20:42)
[2017-03-23] MEDS ORDERED: NS 1000 ML 1,000 ML ONE ×2 (19:33→20:42)
--- NOTE | 2017-03-23 19:38 | DR.GENAD ---
HPI - PCP Primary Care Physician: JOHNSON - HPI Comment HPI Comment: LEFT SIDED NUMBNESS WELL. - Complaint/Symptoms Chief Complaint Doctors Comments: WEAK, POLYURIA, POLYDYSIA, RT SIDED NUMBNESS ABD ELEVATED GLUCOSE. NON COMPLINT WITH MEDICATION. Chief Complaint:: PT STATES" I KEEP CHECKING MY SUGAR IT SAYS HIGH MY LEFT SIDE FEELS NUMB AND I KEEP FALLING" Self Treatment fo Chief Complaint: PT HAS NOT TAKEN HER INSULIN SINCE THURSDAY - Nurses notes reviewed Nurses Notes Review: Yes - Source History Provided: Patient - Mode of Arrival Mode of Arrival: Ambulatory - Timing Onset of Chief Complaint: 03/20/17 Came on: Suddenly - Duration Duration: Constant Duration: Days - Severity Severity: Moderate PMH - PMH Past Medical History: Yes Past Medical History: Arthritis, Asthma, COPD, Diabetes Past Surgical History: Yes Surgical History: Cholecystectomy, Hysterectomy - Family History History of Family Medical Conditions: Yes Family Medical History: Diabetes Mellitus, Cancer, Coronary Artery Disease, Heart Failure, Hypertension - Social History Alcohol Use: None Do you use any recreational Drugs:: No Lives With: Family Lives Where: Home - infectious screening In the last 2 months have you had wt loss of >10#?: NO Have you had fever, night sweats or hemotysis?: No Have you traveled outside the country in the last 6 months?: No Isolation: Standard ROS - Review of Systems Constitutional: No Symptoms Reported Eyes: No Symptoms Reported ENTM: No Symptoms Reported Respiratoy: No Symptoms Reported Cardiovascular: No Symptoms Reported Gastrointestinal/Abdominal: No Symptoms Reported Genitourinary: No Symptoms Reported Neurological: No Symptoms Reported, Numbness (LT SIDED), Problems Walking, Other (LEFT SIDED WEAKNESS.) Musculoskeletal: No Symptoms Reported Integumentary: No Symptoms Reported Hematologic/Lymphatic: No Symptoms Reported Endocrine: No Symptoms Reported All Other Systems: Reviewed and Negative PE - Vital Signs Vitals: Temperature 97.6 F Pulse Rate 101 Respiratory Rate 18 Blood Pressure [Right Arm] 123/71 Blood Pressure [Left Arm] 104/68 Blood Pressure 91/55 O2 Sat by Pulse Oximetry 100 - General Limitations: No Limitations General Appearance: Alert - Head Head Exam: Normal Inspection - Eyes Eye exam: Normal Appearance - ENT ENT Exam: Normal External Ear Exam External Ear Exam: Normal External Inspection TM/Canal Exam: Bilateral Normal Nose Exam: Normal Nose Exam Mouth Exam: Normal Inspection Throat Exam: Normal Inspection - Neck Neck Exam: Trachea Midline - Chest Chest Inspection: Symmetric Chest Wall Rise - Respiratory Respiratory Exam: Normal Lung Sounds Bilat Respiratory Exam: Bilateral Clear to Auscultation - Cardiovascular Cardiovascular Exam: Regular Rate, Normal Rhythm, Normal Heart Sounds - Abdominal Exam Abdominal Exam: Normal Bowel Sounds, Soft. negative: Tenderness - Extremities Extremities Exam: Normal Inspection - Back Back Exam: Normal Inspection - Neurologic Neurological Exam: Alert, Oriented X3, Other (LEFT SIDED NUMBNESS.) - Psychiatric Psychiatric Exam: Normal Affect, Normal Mood - Skin Skin Exam: Normal Color MDM - Additional Information Additional Information Obtained From: Family - Differential Diagnosis Differential Diagnosis: CVA, DKA, HYPERGLYCEMIA, DEHYDRATION, LT SIDED NUMBNESS. Course - Treatment Treatment: SEE ORDERS. - Consultation Consultation Comments: PATIENT DISCUSS WITH DR. MAYS. HE WILL ADMIT PATIENT. - Education/Counseling Education/Counseling: Patient, Family, Education Educated On: Diagnosis, Needs for Follow Up ROR - Labs Reviewed Laboratory Results Reviewed?: Yes Result Diagrams: 03/24/17 06:01 03/24/17 06:01 Laboratory: WBC 7.0 X10^3/uL (3.6-10.0) 03/23/17 20:01 RBC 4.33 X10^6/uL (3.5-5.4) 03/23/17 20:01 Hgb 11.6 g/dL (12.0-16.0) L 03/23/17 20:01 Hct 34.9 % (36.0-47.0) L 03/23/17 20:01 MCV 80.5 fL (80.0-100.0) 03/23/17 20:01 MCH 26.8 pg (27.0-34.0) L 03/23/17 20:01 MCHC 33.3 g/dL (33.0-35.0) 03/23/17 20:01 RDW 15.9 % (11.6-16.5) 03/23/17 20:01 Plt Count 223 X10^3/uL (150.0-450.0) 03/23/17 20:01 MPV 9.9 fL (7.4-11.0) 03/23/17 20:01 Neut % 60.7 % (42.0-75.0) 03/23/17 20:01 Lymph % 32.0 % (21.0-51.0) 03/23/17 20:01 [place] % 6.0 % (0.0-13.0) 03/23/17 20:01 Eos % 0.6 % (0.9-2.9) L 03/23/17 20:01 Baso % 0.7 % (0.2-1.0) 03/23/17 20:01 Neut # 4.3 x10^3/uL (2.2-4.8) 03/23/17 20:01 Lymph # 2.3 X10^3/uL (1.3-2.9) 03/23/17 20:01 [place] # 0.4 x10^3/uL (0.3-0.8) 03/23/17 20:01 Eos # 0.0 x10^3/uL (0.0-0.2) 03/23/17 20:01 Baso # 0.0 X10^3/uL (0.0-0.1) 03/23/17 20:01 Absolute Nucleated RBC 0.0 /100WBC 03/23/17 20:01 Sodium 130 mmol/L (136-145) L 03/23/17 20:01 Corrected Sodium 141 mmol/L (136-145) 03/23/17 20:01 Potassium 4.4 mmol/L (3.5-5.1) 03/23/17 20:01 Chloride 94 mmol/L (98-107) L 03/23/17 20:01 Carbon Dioxide 30.7 mmol/L (21-32) 03/23/17 20:01 BUN 12 mg/dL (7-18) 03/23/17 20:01 Creatinine 1.24 mg/dL (0.55-1.02) H 03/23/17 20:01 Est GFR (MDRD) Af Amer 59 (>60) 03/23/17 20:01 Est GFR (MDRD) Non-Af 49 (>60) L 03/23/17 20:01 Glucose 571 mg/dL (65-99) H* 03/23/17 20:01 POC Glucose (mg/dL) 566 mg/dL (65-99) H* 03/23/17 19:31 Calcium 8.7 mg/dL (8.5-10.1) 03/23/17 20:01 Corrected Calcium 9.8 mg/dL (8.5-10.1) 03/23/17 20:01 Total Bilirubin 0.80 mg/dL (0.2-1.0) 03/23/17 20:01 AST 64 Units/L (15-37) H 03/23/17 20:01 ALT 58 Units/L (12-78) 03/23/17 20:01 Alkaline Phosphatase 372 Units/L (46-116) H 03/23/17 20:01 Creatine Kinase 52 Units/L (26-192) 03/23/17 20:01 CK-MB (CK-2) 1.0 ng/mL (0-4.0) 03/23/17 20:01 CK/CKMB % Calc 1.9 % (<4) 03/23/17 20:01 Troponin I < 0.02 ng/mL (0-1.5) 03/23/17 20:01 C-Reactive Protein 25.50 mg/L (0-3.0) H 03/23/17 20:01 Total Protein 8.8 g/dL (6.4-8.2) H 03/23/17 20:01 Albumin 2.6 g/dL (3.4-5.0) L 03/23/17 20:01 Globulin 6.2 g/dL (2.5-4.5) H 03/23/17 20:01 Albumin/Globulin Ratio 0.4 Ratio (1.1-2.1) L 03/23/17 20:01 Amylase 44 Units/L (25-115) 03/23/17 20:01 Lipase 101 Units/L (73-393) 03/23/17 20:01 Specimen Type Clean catch urine 03/23/17 20:43 Urine Color Yellow (YELLOW) 03/23/17 20:43 Urine Appearance Clear (CLEAR) 03/23/17 20:43 Urine pH 6.0 (5.0 - 8.0) 03/23/17 20:43 Ur Specific [place] 1.010 (1.000-1.030) 03/23/17 20:43 Urine Protein Negative (NEGATIVE) 03/23/17 20:43 Urine Glucose (UA) 4+ (NEGATIVE) 03/23/17 20:43 Urine Ketones Negative (NEGATIVE) 03/23/17 20:43 Urine Occult Blood 1+ (NEGATIVE) 03/23/17 20:43 Urine Nitrite Negative (NEGATIVE) 03/23/17 20:43 Urine Bilirubin Negative (NEGATIVE) 03/23/17 20:43 Urine Urobilinogen Normal (NORMAL) 03/23/17 20:43 Ur Leukocyte Esterase 1+ (NEGATIVE) 03/23/17 20:43 Urine RBC 0-3 /HPF (NEGATIVE) 03/23/17 20:43 Urine WBC 20-30 /HPF (NEGATIVE) 03/23/17 20:43 Ur Squamous Epith Cells Few /HPF (NEGATIVE) 03/23/17 20:43 Urine Bacteria Trace /HPF (NEGATIVE) 03/23/17 20:43 Ur Culture Indicated? Yes/culture set up 03/23/17 20:43 Acetone, Semi-Quant Negative (NEGATIVE) 03/23/17 20:01 - XRAY XRAY Interpreted by: Radiologist XRAY Findings: REPORT DISCUSS WITH PATIENT. - EKG Rhythm: NSR (EKG NOTED.) - Diagnosis Discharge Problem: Hyperglycemia, Left sided numbness, Generalized weakness UTI (urinary tract infection) Qualifiers: Urinary tract infection type: site unspecified Hematuria presence: without hematuria Qualified Code(s): N39.0 - Urinary tract infection, site not specified - Discharge Plan Disposition: ADMITTED INPATIENT Condition: Stable - Follow ups/Referrals - Instructions
[2017-03-23 20:10] LABS: BASOPHILS % (AUTO) 0.7 % (0.2-1.0); EOSINOPHILS % (AUTO) 0.6 % (0.9-2.9); HEMATOCRIT 34.9 % (36.0-47.0); HEMOGLOBIN 11.6 g/dL (12.0-16.0); LYMPHOCYTES # (AUTO) 2.3 X10^3/uL (1.3-2.9); MEAN CORPUSCULAR HEMOGLOBIN 26.8 pg (27.0-34.0); MEAN CORPUSCULAR HGB CONC 33.3 g/dL (33.0-35.0); MEAN CORPUSCULAR VOLUME 80.5 fL (80.0-100.0); MEAN PLATELET VOLUME 9.9 fL (7.4-11.0); MONOCYTES # (AUTO) 0.4 x10^3/uL (0.3-0.8); NEUTROPHILS # (AUTO) 4.3 x10^3/uL (2.2-4.8); NEUTROPHILS % (AUTO) 60.7 % (42.0-75.0); PLATELET COUNT 223 X10^3/uL (150.0-450.0); RED BLOOD COUNT 4.33 X10^6/uL (3.5-5.4); RED CELL DISTRIBUTION WIDTH 15.9 % (11.6-16.5)
[2017-03-23 20:33] LABS: ALANINE AMINOTRANSFERASE 58 Units/L (12-78); ALBUMIN 2.6 g/dL (3.4-5.0); ALKALINE PHOSPHATASE 372 Units/L (46-116); AMYLASE 44 Units/L (25-115); ASPARTATE AMINO TRANSFERASE 64 Units/L (15-37); BLOOD UREA NITROGEN 12 mg/dL (7-18); CALCIUM 8.7 mg/dL (8.5-10.1); CARBON DIOXIDE 30.7 mmol/L (21-32); CHLORIDE 94 mmol/L (98-107); CKMB % 1.9 % (<4); COR CA(FOR HYPOALB) 9.8 mg/dL (8.5-10.1); CREATINE KINASE 52 Units/L (26-192); CREATININE 1.24 mg/dL (0.55-1.02); LIPASE 101 Units/L (73-393); SODIUM 130 mmol/L (136-145); TOTAL PROTEIN 8.8 g/dL (6.4-8.2); TROPONIN I < 0.02 ng/mL (0-1.5); eGFR BLACK RACES 59 (>60); eGFR NON BLACK RACES 49 (>60)
[2017-03-23 20:38] LABS: COR NA(FOR HYPERGLY) 141 mmol/L (136-145)
[2017-03-23] MEDS ORDERED: HumuLIN R ONE ×2 (20:39→20:40)
[2017-03-23] MEDS ORDERED: HumuLIN R IV ONE (20:42)
--- NOTE | 2017-03-23 20:46 | CT ---
CT HEAD WITHOUT CONTRAST CLINICAL HISTORY: 51-year-old female with left-sided numbness and frequent falls. History of diabetes , COPD and asthma. COMPARISON: CT head 02/10/2017. TECHNIQUE: Multiple axial CT images were obtained from the skull base to the cranial vertex without t he administration of contrast. FINDINGS: No evidence of abnormal intra- or extra axial fluid collections, midline shift, or mass eff ect. Paredes white differentiation is maintained. The ventricular system is normal in size and morpholog y. The basal cisterns are normal in appearance. Stable left frontal mucosal retention cysts with the remaining imaged paranasal sinuses, mastoid air cells and tympanic cavities clear. Severe hyperostosis circumscripta with falcine calcifications. IMPRESSION: 1. No acute intracranial process. Reported By:
--- NOTE | 2017-03-23 20:50 | CT ---
Indication: Left-sided pain. Exam: CT chest without contrast. Comparison: None. Technique: Axial spiral images were obtained from the level above the clavicles through the diaphragm without contrast. Automated dose control was utilized. Findings: The thyroid gland is unremarkable. There is a right Port-A-Cath in place with the tip in th e brachiocephalic vein. The aorta and pulmonary arteries are normal caliber with no mediastinal mass or adenopathy. No consolidation or effusion is seen and there is no pulmonary nodule or mass. The bon es are intact. No fracture is seen. The adrenals are normal. The gallbladder has been removed. Impression: Right Port-A-Cath in place with the tip in the left brachiocephalic vein No acute intrathoracic abnormality. Status post cholecystectomy. Reported By:
--- NOTE | 2017-03-23 20:52 | CT ---
CT ABDOMEN AND PELVIS WITHOUT CONTRAST CLINICAL HISTORY: 51-year-old female with left-sided numbness and frequent falls with history of diab etes and COPD. COMPARISON: CT abdomen and pelvis 12/15/2016. TECHNIQUE: Multiple contiguous computed tomographic axial images of the abdomen and pelvis were obtai margie without the use of oral or intravenous contrast. Images were reformatted in the coronal and sagit ora planes. FINDINGS: The lung bases demonstrate no evidence of focal air-space opacification, pleural effusion, pneumothor ax, or suspicious pulmonary nodules. The imaged inferior mediastinum and heart are normal in appeara nce without evidence of pericardial effusion. Hepatomegaly without hepatic steatosis, focal mass lesion or biliary ductal dilatation. Spleen and pa ncreas are unremarkable. Status post cholecystectomy. The adrenal glands and kidneys are normal bilaterally. There are no nephroureteral stones or perineph cristy fluid collections. There is no evidence of hydroureteronephrosis and the ureters run in an unobst ructed course to a massively distended urinary bladder. Status post hysterectomy. Vaginal cuff and adnexa are unremarkable. Multiple pelvic phleboliths. Stable postsurgical changes of the lower anterior abdominal wall to include abdominal mesh with surgi jenifer tacks and stable simple fluid collection contained within the abdominal mesh. Status post right h emicolectomy. The bowel is without obstruction or inflammation and there is no free fluid or free ai r within the peritoneal cavity. There are no pathologically enlarged lymph nodes in the abdomen or p chikis. Scattered calcific atherosclerotic plaque within the aorta and its branches. The osseous structures are intact without fracture or malalignment. IMPRESSION: 1. No evidence of renal stones or hydroureteronephrosis. 2. Status post right hemicolectomy. 3. Status post cholecystectomy. 4. Massively distended urinary bladder, consider placement of Long catheter and correlation with uri nalysis. 5. Chronic findings as above. Reported By:
[2017-03-23 21:01] LABS: BILIRUBIN,URINE NEGATIVE (NEGATIVE); BLOOD/HEMOGLOBIN,URINE 1+ (NEGATIVE); GLUCOSE, URINE 4+ (NEGATIVE); KETONES,URINE NEGATIVE (NEGATIVE); LEUKOCYTE ESTERASE ,URINE 1+ (NEGATIVE); NITRITES,URINE NEGATIVE (NEGATIVE); PROTEIN,URINE NEGATIVE (NEGATIVE); UROBILINOGEN,URINE NORMAL (NORMAL)
[2017-03-23 21:10] LABS: APPEARANCE,URINE CLEAR (CLEAR); BACTERIA,URINE TRACE /HPF (NEGATIVE); COLOR,URINE YELLOW (YELLOW); RBC,URINE 0-3 /HPF (NEGATIVE); SQUAMOUS EPITHELIAL CELL,UR FEW /HPF (NEGATIVE)
[2017-03-23] MEDS ORDERED: ROCEPHIN VIAL 1 GM 1 GM in NS 100 ML IV + SPIKE MINIBAG* 100 ML IV ONE (21:42)
[2017-03-23] MEDS ORDERED: ROCEPHIN VIAL 1 GM ONE (21:47)
[2017-03-23 21:50] LABS: ABG BASE EXCESS 5.1 mmol/L (-2.0-2.0)
[2017-03-23 21:51] LABS: ABG HCO3 30.5 mmol/L (22-26)
[2017-03-23] MEDS: NS 1000 ML 1,000 ML IV SCH ×2 (22:24→23:23)
[2017-03-24] MEDS: HumuLIN R SC PRN ×4 (02:14→17:53)
[2017-03-24 03:06] LABS: CKMB % 2.2 % (<4); CREATINE KINASE 46 Units/L (26-192); TROPONIN I < 0.02 ng/mL (0-1.5)
[2017-03-24] MEDS: NORCO 5/325 MG TAB PO PRN ×2 (03:20→09:41)
[2017-03-24] MEDS: NS 1000 ML 1,000 ML IV SCH ×3 (05:51→20:43)
[2017-03-24 06:17] LABS: BASOPHILS % (AUTO) 0.5 % (0.2-1.0); EOSINOPHILS # (AUTO) 0.1 x10^3/uL (0.0-0.2); EOSINOPHILS % (AUTO) 0.9 % (0.9-2.9); HEMATOCRIT 30.9 % (36.0-47.0); HEMOGLOBIN 10.5 g/dL (12.0-16.0); LYMPHOCYTES # (AUTO) 2.2 X10^3/uL (1.3-2.9); LYMPHOCYTES % (AUTO) 37.8 % (21.0-51.0); MEAN CORPUSCULAR HEMOGLOBIN 26.7 pg (27.0-34.0); MEAN CORPUSCULAR HGB CONC 33.9 g/dL (33.0-35.0); MEAN CORPUSCULAR VOLUME 78.9 fL (80.0-100.0); MEAN PLATELET VOLUME 9.2 fL (7.4-11.0); MONOCYTES # (AUTO) 0.4 x10^3/uL (0.3-0.8); MONOCYTES % (AUTO) 7.5 % (0.0-13.0); NEUTROPHILS # (AUTO) 3.2 x10^3/uL (2.2-4.8); NEUTROPHILS % (AUTO) 53.3 % (42.0-75.0); PLATELET COUNT 184 X10^3/uL (150.0-450.0); RED BLOOD COUNT 3.92 X10^6/uL (3.5-5.4); RED CELL DISTRIBUTION WIDTH 15.3 % (11.6-16.5); WHITE BLOOD COUNT 5.9 X10^3/uL (3.6-10.0)
[2017-03-24 06:37] LABS: ALANINE AMINOTRANSFERASE 46 Units/L (12-78); ALBUMIN 2.1 g/dL (3.4-5.0); ALKALINE PHOSPHATASE 299 Units/L (46-116); ASPARTATE AMINO TRANSFERASE 52 Units/L (15-37); BLOOD UREA NITROGEN 8 mg/dL (7-18); CARBON DIOXIDE 28.8 mmol/L (21-32); CHLORIDE 102 mmol/L (98-107); CHOL/HDL RATIO 3.5 (0.0-5.0); CHOLESTEROL 170 mg/dL (0-200); COR CA(FOR HYPOALB) 9.5 mg/dL (8.5-10.1); COR NA(FOR HYPERGLY) 140 mmol/L (136-145); CREATININE 1.02 mg/dL (0.55-1.02); HDL CHOLESTEROL 49 mg/dL (40-60); MAGNESIUM 1.3 mg/dL (1.7-2.9); SODIUM 137 mmol/L (136-145); TOTAL PROTEIN 7.4 g/dL (6.4-8.2); TRIGLYCERIDES 105 mg/dL (0-150); eGFR BLACK RACES > 60 (>60); eGFR NON BLACK RACES > 60 (>60)
[2017-03-24 08:47] LABS: CKMB % 2.2 % (<4); CREATINE KINASE 45 Units/L (26-192); CREATINE KINASE MB < 1.0 ng/mL (0-4.0); TROPONIN I < 0.02 ng/mL (0-1.5)
[2017-03-24] MEDS ORDERED: MAGNESIUM SULFATE 1 GM/100 mL PREMIX 1 GM/100 ML BAG IV PRN (10:13)
[2017-03-24] MEDS: ALBUMIN HUMAN 25%- 100ML 100 ML IV SCH (11:30)
[2017-03-24] MEDS: ROCEPHIN VIAL 1 GM 1 GM in NS 100 ML IV + SPIKE MINIBAG* 100 ML IV SCH (11:30)
[2017-03-24] MEDS: MORPHINE SULFATE INJ 2 MG INJ IVP PRN ×3 (13:19→22:05)
[2017-03-24] MEDS ORDERED: ULTRAM PO PRN (16:34)
[2017-03-24] MEDS ORDERED: PROMETHAZINE HCL 25 MG PO PRN (16:34)
[2017-03-24] MEDS ORDERED: GLIMEPIRIDE PO SCH (16:45)
[2017-03-24] MEDS ORDERED: PATIENT'S HOME MEDICATION (Montelukast Sodium [Montelukast Sodium] 1 TAB) PO SCH (16:45)
[2017-03-24] MEDS: CYMBALTA PO SCH (17:44)
[2017-03-24] MEDS: NORVASC TAB 5 MG PO SCH (17:45)
[2017-03-24] MEDS: NEURONTIN CAP 300 MG PO SCH ×2 (17:45→21:26)
[2017-03-24] MEDS: LINZESS PO SCH (17:45)
--- NOTE | 2017-03-24 18:12 | DR.H&P ---
H&P - History & Physical for Day of: H&P Date: 03/23/17 - Chief Complaint Chief Complaint: ELEVATED GLUCOSE, LEFT SIDED NUMBNESS, ABDOMINAL PAIN - Allergies Allergies/Adverse Reactions: Allergies Allergy/AdvReac Type Severity Reaction Status Date / Time aspirin Allergy Verified 12/21/16 17:15 - History of Present Illness History of Present Illness: IS A 51 YEAR OLD PATIENT OF OURS WHO PRESENTED TO THE EMERGENCY ROOM WITH COMPLAINTS OF ELEVATED GLUCOSE AND LEFT SIDED NUMBNESS. PATIENT REPORTS THAT SHE HAS NOT TAKEN ANY INSULIN SINCE THURSDAY. PATIENT STATES THAT SHE IS DIZZY AND KEEPS FALLING AT HOME. ASSOCIATED SYMPTOMS ARE PLYURIA, POLYDIPSIA, AND ABDOMINAL PAIN. ON EXAMINATION , PUPILS PERRL. SHE IS ALERT AND ORIENTED X 3. HEART IS REGULAR IN RATE AND RHYTHM. BILATERAL LUNGS ARE NOTED WITH DIMINISHED LUNG SOUNDS THROUGHOUT. ABDOMEN IS ROUND, SOFT, AND NOTED WITH MODERATE SUPRAPUBIC PAIN ON PALPATION. NORMAL BOWEL SOUNDS ARE NOTED IN ALL QUADRANTS. THERE IS NORMAL RANGE OF MOTION NOTED TO ALL EXTREMITIES. ON ARRIVAL, HER VITALS WERE 97.2-079-36-100%-91/55. LABS WERE OBTAINED. ABNORMAL LAB VALUES INCLUDE THE FOLLOWING: HGB 11.6, HCT 34.9, SODIUM 130, CHLORIDE 94, CREATININE 1.24, GLUCOSE 571, AST 64, ALK PHOS 372, CRP 25.50, TOTAL PROTEIN 8.8, ALBUMIN 2.6, AMYLASE 44, LIPASE 101, SERUM ACETONES NEGATIVE. CARDIAC ENZYMES WITHIN NORMAL LIMITS. URINALYSIS REVEALED RBC 0-3, WBC 20-30, BACTERIA TRACE, LEUKOCYTES 1+, NITRITES NEGATIVE, PROTEIN NEGATIVE. AN ABG WAS OBTAINED AND REVEALED PH 7.420, PC02 47, P02 84.0, HC03 30.5, 02 SATURATIONS 96, BASE EXCESS 5.1. A BRAIN CT WAS OBTAINED AND REPORTED NO ACUTE INTRACRANIAL PROCESS. A CHEST CT REPORTED NO ACUTE INTRATHORACIC ABNORMALITY. AN ABD/PELVIS CT WAS OBTAINED AND REPORTED NO EVIDENCE OF RENTAL STONES OR HYPROURETERONEPHROSIS. STATUS POST RIGHT HEMICOLECTOMY. STATUS POST CHOLECEYSTECTOMY. MASSIVELY DISTENDED URINARY BLADDER, CONSIDER PLACEMENT OF SCHERER CATHETER AND CORRELATION WITH URINALYSIS. SHE WAS GIVEN A NORMAL SALINE BOLUS X 2, HUMULIN R 10 UNITS, AND ROCEPHIN 1GM IV X 1 IN THE ER. GLUCOSE WAS NOTED TO DECREASE TO 343 AFTER ADMINISTRATION OF INSULIN. PATIENT WAS ADMITTED FOR FURTHER TREATMENT AND EVALUATION OF HYPERGLYCEMIA AND A URINARY TRACT INFECTION. SHE WAS STARTED ON NORMAL SALINE AT 125ML/HR, ROCEPHIN 1GM IV DAILY, AND HUMULIN R SLIDING SCALE. WE PLAN TO MONITOR OTBS Q4H. WE WILL FOLLOW UP WITH AM LABS AND CHEST XRAY AND CONTINUE TO MONITOR PATIENT. - Past Medical History Past Medical History: Anxiety, Arthritis, Asthma, COPD, Dementia, Depression, Diabetes, Dyslipidemia, GERD, Hypertension, Kidney Stones Additional Medical History: NEUROPATHY, CONSTIPATION, ENDOMETRIOSIS, - Past Surgical History Surgical History: Cholecystectomy, Hysterectomy Additional Surgical History: HERNIA REPAIR, CATARACTS, CYST REMOVED FROM BUTTOCKS, BACK SURGERY, D&C - Family History Family Medical History: Diabetes Mellitus, Cancer, Coronary Artery Disease, Heart Failure, Hypertension - Social History Alcohol Use: None Drug Use: None - Medications Home Medications: Amlodipine Besylate [NORVASC 5 MG *] 1 tab PO DAILY 03/24/17 [History Confirmed 03/24/17] Cefdinir [OMNICEF CAP 300 mg *] 1 tab PO BID 03/24/17 [History Confirmed ] Duloxetine HCl [CYMBALTA 60 MG *] 1 tab PO DAILY 03/24/17 [History Confirmed ] Hydrocodone-Acet 10/325 mg [NORCO 10 MG/325 MG *] 1 tab PO Q6H PRN 03/24/17 [ History Confirmed 03/24/17] Oxycodone HCl/Acetaminophen [Oxycodone-Acetaminophen 10-325] 1 tab PO Q6H PRN [History Confirmed 03/24/17] Pantoprazole Sodium [Protonix] 1 tab PO BID 03/24/17 [History Confirmed 03/24/17 ] Sitagliptin Phosphate [JANUVIA 100 MG *] 1 tab PO DAILY 03/24/17 [History Confirmed 03/24/17] Tramadol HCl [ULTRAM 50 MG *] 1 tab PO Q6H PRN 03/24/17 [History Confirmed 03/24] - Review of Systems Constitutional: Weakness Eyes: No Symptoms Reported. denies: See HPI, Pain, Vision Change, Conjunctivae Inflammation, Eyelid Inflammation, Redness, Other ENT: No Symptoms Reported. denies: See HPI, Ear Pain, Ear Discharge, Nose Pain , Nose Discharge, Nose Congestion, Mouth Pain, Mouth Swelling, Throat Pain, Throat Swelling, Other Respiratory: No Symptoms Reported. denies: See HPI, Cough, Dry, Shortness of Breath, Hemoptysis, SOB with Excertion, Pleuritic Pain, Sputum, Wheezing, Other Cardiovascular: Light Headedness Gastrointestinal: Abdominal Pain. denies: Nausea, Vomiting, Diarrhea, Constipation, Hematochezia Genitourinary: Frequency Musculoskeletal: No Symptoms Reported. denies: See HPI, Shoulder Pain, Arm Pain , Back Pain, Hand Pain, Leg Pain, Foot Pain, Neck Pain, Other Skin: No Symptoms Reported. denies: See HPI, Rash, Lesions, Jaundice, Bruising , Wound, Ecchymosis, Other Neurological: Weakness, Numbness (LEFT SIDED WEAKNESS ) - Physical Exam Vital Signs: Temperature 98.0 F Pulse Rate [Left Brachial] 90 Pulse Rate 101 Respiratory Rate 18 Blood Pressure [Right Arm] 128/61 Blood Pressure [Left Arm] 104/52 Blood Pressure 91/55 O2 Sat by Pulse Oximetry 98 Oriented: Normal. negative: Time, Person, Place, Not Oriented, Unable to test, Other Eyes: Normal. negative: Blurred Vision, Diplopia, Discharge, Pain, Redness, Photophobia, Other Ear: Normal. negative: Right, Left, Swelling, Ecchymosis, Hemotypanum, Abrasion , Laceration Nose: Normal. negative: Injected, Discharge, Blood, Other Throat: Normal. negative: Tonsillar Hypertrophy, Red, Exudate, Dry, Other Respiratory: Diminished Throughout Cardiovascular: Normal. negative: Tachycardia, Bradycardia, Irregular, S3, S4, Systolic, Diastolic, Murmur, Edema, Other : Frequency. negative: Dysuria, Hematuria, Discharge, Bleeding, Auscultation: Bowel Sounds: Normal Palpation: Normal. negative: Spleen Enlarged, Liver Enlarged, Mass Pulsatile, Other Tenderness: Suprapubic, Moderate. negative: Rebound, Guarding, Rigidity Skin: Normal Musculoskeletal: Normal Psychiatric: Normal Mood Description: Calm Affect: Normal Speech Pattern: Clear - Assessment/Plan (1) Hyperglycemia Status: Acute Plan: NORMAL SALINE AT 125ML/HR, HUMULIN R SLIDING SCALE, MONITOR OTBS, CONTINUE TO MONITOR (2) Left sided numbness Status: Acute Plan: CONTINUE TO MONITOR (3) UTI (urinary tract infection) Qualifiers: Urinary tract infection type: site unspecified Hematuria presence: without hematuria Qualified Code(s): N39.0 - Urinary tract infection, site not specified Status: Acute Plan: NORMAL SALINE AT 125ML/HR, ROCEPHIN 1GM IV DAILY, CONTINUE TO MONITOR
[2017-03-24] MEDS: JANUVIA PO SCH (18:37)
[2017-03-24] MEDS ORDERED: PHENERGAN TAB 25 MG PO PRN (18:40)
[2017-03-24] MEDS ORDERED: GLUCOPHAGE ONE (20:26)
[2017-03-24] MEDS: AMARYL TAB 4 MG PO SCH (20:34)
[2017-03-24] MEDS: NORCO 10/325 TAB PO PRN (20:34)
[2017-03-24] MEDS: ELAVIL PO SCH (20:36)
[2017-03-24] MEDS: CARAFATE PO SCH (20:36)
[2017-03-24] MEDS: PROTONIX TAB 40 MG PO SCH (20:37)
[2017-03-24] MEDS: LANTUS SC SCH (20:38)
[2017-03-24] MEDS: SNACK - Diabetic Appropriate PO SCH (20:44)
[2017-03-24] MEDS: GLUCOPHAGE PO SCH (20:45)
[2017-03-24] MEDS ORDERED: PATIENT'S HOME MEDICATION (Metformin Hcl [Metformin Hcl] 1 TAB) PO SCH (21:00)
[2017-03-24] MEDS ORDERED: PATIENT'S HOME MEDICATION (Amitriptyline Hcl [Amitriptyline Hcl] 1 TAB) PO SCH (21:00)
[2017-03-25] MEDS: NS 1000 ML 1,000 ML IV SCH ×3 (01:04→13:23)
[2017-03-25] MEDS: HumuLIN R SC PRN ×4 (02:53→21:02)
[2017-03-25] MEDS ORDERED: GLUCOPHAGE ONE ×2 (05:16→16:36)
[2017-03-25] MEDS: NEURONTIN CAP 300 MG PO SCH ×3 (05:21→21:01)
[2017-03-25] MEDS: AMARYL TAB 4 MG PO SCH ×2 (06:07→16:48)
[2017-03-25] MEDS: GLUCOPHAGE PO SCH ×2 (06:07→16:48)
[2017-03-25 06:33] LABS: BASOPHILS % (AUTO) 0.4 % (0.2-1.0); EOSINOPHILS # (AUTO) 0.1 x10^3/uL (0.0-0.2); HEMATOCRIT 31.9 % (36.0-47.0); HEMOGLOBIN 10.7 g/dL (12.0-16.0); LYMPHOCYTES % (AUTO) 45.3 % (21.0-51.0); MEAN CORPUSCULAR HEMOGLOBIN 27.1 pg (27.0-34.0); MEAN CORPUSCULAR HGB CONC 33.7 g/dL (33.0-35.0); MEAN CORPUSCULAR VOLUME 80.5 fL (80.0-100.0); MONOCYTES # (AUTO) 0.5 x10^3/uL (0.3-0.8); NEUTROPHILS # (AUTO) 2.9 x10^3/uL (2.2-4.8); NEUTROPHILS % (AUTO) 45.3 % (42.0-75.0); PLATELET COUNT 171 X10^3/uL (150.0-450.0); RED BLOOD COUNT 3.96 X10^6/uL (3.5-5.4); RED CELL DISTRIBUTION WIDTH 15.5 % (11.6-16.5); WHITE BLOOD COUNT 6.5 X10^3/uL (3.6-10.0)
[2017-03-25 07:21] LABS: ALANINE AMINOTRANSFERASE 49 Units/L (12-78); ALBUMIN 2.4 g/dL (3.4-5.0); ALKALINE PHOSPHATASE 299 Units/L (46-116); ASPARTATE AMINO TRANSFERASE 70 Units/L (15-37); BLOOD UREA NITROGEN 7 mg/dL (7-18); CALCIUM 8.1 mg/dL (8.5-10.1); CARBON DIOXIDE 25.4 mmol/L (21-32); CHLORIDE 101 mmol/L (98-107); COR CA(FOR HYPOALB) 9.4 mg/dL (8.5-10.1); COR NA(FOR HYPERGLY) 138 mmol/L (136-145); CREATININE 0.95 mg/dL (0.55-1.02); MAGNESIUM 1.2 mg/dL (1.7-2.9); SODIUM 133 mmol/L (136-145); TOTAL PROTEIN 7.8 g/dL (6.4-8.2); eGFR BLACK RACES > 60 (>60); eGFR NON BLACK RACES > 60 (>60)
[2017-03-25] MEDS: CARAFATE PO SCH ×2 (09:33→20:49)
[2017-03-25] MEDS: ALBUMIN HUMAN 25%- 100ML 100 ML IV SCH (09:33)
[2017-03-25] MEDS: JANUVIA PO SCH (09:33)
[2017-03-25] MEDS: CYMBALTA PO SCH (09:33)
[2017-03-25] MEDS: LINZESS PO SCH (09:34)
[2017-03-25] MEDS: LANTUS SC SCH ×2 (09:34→20:59)
[2017-03-25] MEDS: SINGULAIR TAB 10 MG PO SCH (09:35)
[2017-03-25] MEDS: ROCEPHIN VIAL 1 GM 1 GM in NS 100 ML IV + SPIKE MINIBAG* 100 ML IV SCH (09:35)
[2017-03-25] MEDS: PROTONIX TAB 40 MG PO SCH ×2 (09:35→20:50)
[2017-03-25] MEDS: NORVASC TAB 5 MG PO SCH (09:35)
[2017-03-25] MEDS: NORCO 10/325 TAB PO PRN (09:35)
[2017-03-25] MEDS: MORPHINE SULFATE INJ 2 MG INJ IVP PRN ×3 (12:49→20:47)
[2017-03-25] MEDS: WELLBUTRIN XL 150 MG (DAILY) PO SCH (13:23)
[2017-03-25] MEDS: GENTAMICIN TOPICAL CRM TOP SCH ×2 (13:23→20:58)
[2017-03-25] MEDS: ELAVIL PO SCH (20:48)
[2017-03-25] MEDS: SNACK - Diabetic Appropriate PO SCH (20:49)
--- NOTE | 2017-03-25 21:16 | PCM.PROG ---
Progress Note - Progress Note for Day of Date: 03/24/17 - Subjective Subjective: IS BEING TREATED FOR HYPERGLYCEMIA AND A URINARY TRACT INFECTION. TODAY, SHE IS ALERT AND ORIENTED, LYING IN BED ON MORNING ROUNDS. SHE IS NOTED WITH COMPLAINTS OF GENERALIZED WEAKNESS AND MILD SUPRAPUBIC PAIN. SHE REPORTS THAT LEFT SIDED NUMBNESS HAS RESOLVED THIS MORNING. ON EXAMINATION, HEART IS REGULAR IN RATE AND RHYTHM. BILATERAL LUNGS ARE NOTED TO BE CLEAR TO AUSCULTATION. ABDOMEN IS ROUND, SOFT, AND NOTED WITH MILD, SUPRAPUBIC TENDERNESS ON PALPATION. THERE IS NORMAL RANGE OF MOTION TO ALL EXTREMITIES. HER VITALS THIS MORNING ARE 98.4-93-20-98%-172/79. LABS WERE OBTAINED. ABNORMAL LAB VALUES INCLUDE THE FOLLOWING: HGB 10.5, HCT 30.9, GLUCOSE 235, CALCIUM 8.0, MAGNESIUM 1.3, AST 52, ALK PHOS 299, ALBUMIN 2.1, GLOBULIN 5.3. CARDIAC ENZYMES HAVE BEEN WITHIN NORMAL LIMITS. URINE CULTURE IS PENDING. MOST RECENT EKG REPORTS SINUS RHYTHM WITH HR 99, VENTRICULAR HYPERTROPY. GLUCOSE REMAINED ELEVATED THROUGHOUT THE NIGHT. SHE CONTINUES TO RECEIVE HUMULIN R SLIDING SCALE , AMARYL, LANTUS 70 UNITS BID, GLUCOPHAGE, AND JANUVIA. WE WILL CONTINUE THESE TODAY. SHE ALSO CONTINUES TO RECEIVE ROCEPHIN 1GM IV DAILY FOR UTI. TODAY, WE WILL START ALBUMIN 25% IV DAILY, TPN, AND WILL REPLACE HER MAGNESIUM. OTHERWISE , WE PLAN TO FOLLOW UP WITH AM LABS AND CONTINUE TO MONITOR PATIENT. - Past Medical Family Social History Past Med/Fam/Surg Hx: No changes since H&P Allergies: Allergies aspirin Allergy (Verified 12/21/16 17:15) - Review of Systems ROS: No change since H&P - Vital Signs and I&O's Vital Signs: Temperature 97.1 F Pulse Rate [Left Brachial] 96 Pulse Rate 101 Respiratory Rate 20 Blood Pressure [Right Arm] 174/94 Blood Pressure [Left Arm] 104/52 Blood Pressure 91/55 O2 Sat by Pulse Oximetry 94 Intake and Output: Intake & Output 03/23/17 03/24/17 03/25/17 03/26/17 11:59 11:59 11:59 11:59 Intake Total 1000 3400 650 Output Total 7000 1 Balance 1000 -3600 649 - Physical Exam Oriented: Normal. negative: Time, Person, Place, Not Oriented, Unable to test, Other Eyes: Normal. negative: Blurred Vision, Diplopia, Discharge, Pain, Redness, Photophobia, Other Ear: Normal. negative: Right, Left, Swelling, Ecchymosis, Hemotypanum, Abrasion , Laceration Nose: Normal. negative: Injected, Discharge, Blood, Other Throat: Normal. negative: Tonsillar Hypertrophy, Red, Exudate, Dry, Other Cardiovascular: Normal. negative: Tachycardia, Bradycardia, Irregular, S3, S4, Systolic, Diastolic, Murmur, Edema, Other : Frequency. negative: Dysuria, Hematuria, Discharge, Bleeding, Auscultation: Bowel Sounds: Normal Palpation: Normal Tenderness: Suprapubic, Moderate. negative: Rebound, Guarding, Rigidity Skin: Normal Musculoskeletal: Normal Psychiatric: Normal Mood Description: Calm Affect: Normal Speech Pattern: Clear, Appropriate - Laboratory and Diagnostics Result Diagrams: 03/25/17 05:37 03/25/17 05:37 Labs: 03/23/17 20:43 Urine,Clean Catch Urine Culture - Final Laboratory WBC 6.5 X10^3/uL (3.6-10.0) 03/25/17 05:37 RBC 3.96 X10^6/uL (3.5-5.4) 03/25/17 05:37 Hgb 10.7 g/dL (12.0-16.0) L 03/25/17 05:37 Hct 31.9 % (36.0-47.0) L 03/25/17 05:37 MCV 80.5 fL (80.0-100.0) 03/25/17 05:37 MCH 27.1 pg (27.0-34.0) 03/25/17 05:37 MCHC 33.7 g/dL (33.0-35.0) 03/25/17 05:37 RDW 15.5 % (11.6-16.5) 03/25/17 05:37 Plt Count 171 X10^3/uL (150.0-450.0) 03/25/17 05:37 MPV 10.0 fL (7.4-11.0) 03/25/17 05:37 Neut % 45.3 % (42.0-75.0) 03/25/17 05:37 Lymph % 45.3 % (21.0-51.0) 03/25/17 05:37 [place] % 8.0 % (0.0-13.0) 03/25/17 05:37 Eos % 1.0 % (0.9-2.9) 03/25/17 05:37 Baso % 0.4 % (0.2-1.0) 03/25/17 05:37 Neut # 2.9 x10^3/uL (2.2-4.8) 03/25/17 05:37 Lymph # 3.0 X10^3/uL (1.3-2.9) H 03/25/17 05:37 [place] # 0.5 x10^3/uL (0.3-0.8) 03/25/17 05:37 Eos # 0.1 x10^3/uL (0.0-0.2) 03/25/17 05:37 Baso # 0.0 X10^3/uL (0.0-0.1) 03/25/17 05:37 Absolute Nucleated RBC 0.2 /100WBC 03/25/17 05:37 INR Target Range - 03/24/17 06:01 INR 1.02 (0.8-1.3) 03/24/17 06:01 PTT 29.7 SECONDS (22.9-36.5) 03/24/17 06:01 PTT Comment - 03/24/17 06:01 Sample Site right brachial 03/23/17 21:45 ABG pH 7.420 (7.35-7.45) 03/23/17 21:45 ABG pCO2 47.0 mmHg (35.0-45.0) H 03/23/17 21:45 ABG pO2 84.0 mmHg (80.0-100.0) 03/23/17 21:45 ABG HCO3 30.5 mmol/L (22-26) H* 03/23/17 21:45 ABG O2 Saturation 96.0 % (90-100) 03/23/17 21:45 ABG Base Excess 5.1 mmol/L (-2.0-2.0) H 03/23/17 21:45 Felipe Test na 03/23/17 21:45 A-a Gradient 7.0 mmHg 01/29/18 21:45 FiO2 21.000 03/23/17 21:45 Blood Gas Comments jacoby well jts 03/23/17 21:45 Sodium 133 mmol/L (136-145) L 03/25/17 05:37 Corrected Sodium 138 mmol/L (136-145) 03/25/17 05:37 Potassium 3.9 mmol/L (3.5-5.1) 03/25/17 05:37 Chloride 101 mmol/L (98-107) 03/25/17 05:37 Carbon Dioxide 25.4 mmol/L (21-32) 03/25/17 05:37 BUN 7 mg/dL (7-18) 03/25/17 05:37 Creatinine 0.95 mg/dL (0.55-1.02) 03/25/17 05:37 Est GFR (MDRD) Af Amer > 60 (>60) 03/25/17 05:37 Est GFR (MDRD) Non-Af > 60 (>60) 03/25/17 05:37 Glucose 290 mg/dL (65-99) H 03/25/17 05:37 POC Glucose (mg/dL) 280 mg/dL (65-99) H 03/25/17 20:44 Calcium 8.1 mg/dL (8.5-10.1) L 03/25/17 05:37 Corrected Calcium 9.4 mg/dL (8.5-10.1) 03/25/17 05:37 Magnesium 1.2 mg/dL (1.7-2.9) L 03/25/17 05:37 Total Bilirubin 0.60 mg/dL (0.2-1.0) 03/25/17 05:37 AST 70 Units/L (15-37) H 03/25/17 05:37 ALT 49 Units/L (12-78) 03/25/17 05:37 Alkaline Phosphatase 299 Units/L (46-116) H 03/25/17 05:37 Creatine Kinase 45 Units/L (26-192) 03/24/17 08:16 CK-MB (CK-2) < 1.0 ng/mL (0-4.0) 03/24/17 08:16 CK/CKMB % Calc 2.2 % (<4) 03/24/17 08:16 Troponin I < 0.02 ng/mL (0-1.5) 03/24/17 08:16 C-Reactive Protein 25.50 mg/L (0-3.0) H 03/23/17 20:01 Total Protein 7.8 g/dL (6.4-8.2) 03/25/17 05:37 Albumin 2.4 g/dL (3.4-5.0) L 03/25/17 05:37 Globulin 5.4 g/dL (2.5-4.5) H 03/25/17 05:37 Albumin/Globulin Ratio 0.4 Ratio (1.1-2.1) L 03/25/17 05:37 Triglycerides 105 mg/dL (0-150) 03/24/17 06:01 Cholesterol 170 mg/dL (0-200) 03/24/17 06:01 LDL Cholesterol, Calc 100 mg/dL (0-100) 03/24/17 06:01 HDL Cholesterol 49 mg/dL (40-60) 03/24/17 06:01 Cholesterol/HDL Ratio 3.5 (0.0-5.0) 03/24/17 06:01 Amylase 44 Units/L (25-115) 03/23/17 20:01 Lipase 101 Units/L (73-393) 03/23/17 20:01 Specimen Type Clean catch urine 03/23/17 20:43 Urine Color Yellow (YELLOW) 03/23/17 20:43 Urine Appearance Clear (CLEAR) 03/23/17 20:43 Urine pH 6.0 (5.0 - 8.0) 03/23/17 20:43 Ur Specific [place] 1.010 (1.000-1.030) 03/23/17 20:43 Urine Protein Negative (NEGATIVE) 03/23/17 20:43 Urine Glucose (UA) 4+ (NEGATIVE) 03/23/17 20:43 Urine Ketones Negative (NEGATIVE) 03/23/17 20:43 Urine Occult Blood 1+ (NEGATIVE) 03/23/17 20:43 Urine Nitrite Negative (NEGATIVE) 03/23/17 20:43 Urine Bilirubin Negative (NEGATIVE) 03/23/17 20:43 Urine Urobilinogen Normal (NORMAL) 03/23/17 20:43 Ur Leukocyte Esterase 1+ (NEGATIVE) 03/23/17 20:43 Urine RBC 0-3 /HPF (NEGATIVE) 03/23/17 20:43 Urine WBC 20-30 /HPF (NEGATIVE) 03/23/17 20:43 Ur Squamous Epith Cells Few /HPF (NEGATIVE) 03/23/17 20:43 Urine Bacteria Trace /HPF (NEGATIVE) 03/23/17 20:43 Ur Culture Indicated? Yes/culture set up 03/23/17 20:43 Acetone, Semi-Quant Negative (NEGATIVE) 03/23/17 20:01 - Plan (1) Hyperglycemia Status: Acute Plan: NORMAL SALINE AT 125ML/HR, HUMULIN R SLIDING SCALE, MONITOR OTBS, CONTINUE HOME MEDS, CONTINUE TO MONITOR (2) Left sided numbness Status: Acute Plan: CONTINUE TO MONITOR (3) UTI (urinary tract infection) Status: Acute Qualifiers: Urinary tract infection type: site unspecified Hematuria presence: without hematuria Qualified Code(s): N39.0 - Urinary tract infection, site not specified Plan: NORMAL SALINE AT 125ML/HR, ROCEPHIN 1GM IV DAILY, CONTINUE TO MONITOR (4) Protein deficiency Status: Acute Plan: TPN, ALBUMIN 25% IV DAILY, CONTINUE TO MONITOR
[2017-03-25] MEDS: PHENERGAN INJ 25 MG IV PRN (21:24)
[2017-03-26] MEDS: MORPHINE SULFATE INJ 2 MG INJ IVP PRN ×2 (02:46→11:03)
[2017-03-26] MEDS: NS 1000 ML 1,000 ML IV SCH ×2 (02:47→06:18)
[2017-03-26] MEDS: HumuLIN R SC PRN ×3 (02:48→11:03)
[2017-03-26] MEDS ORDERED: GLUCOPHAGE ONE (06:10)
[2017-03-26 06:13] LABS: BASOPHILS % (AUTO) 0.5 % (0.2-1.0); EOSINOPHILS # (AUTO) 0.1 x10^3/uL (0.0-0.2); EOSINOPHILS % (AUTO) 0.9 % (0.9-2.9); HEMATOCRIT 32.5 % (36.0-47.0); HEMOGLOBIN 10.9 g/dL (12.0-16.0); LYMPHOCYTES % (AUTO) 30.8 % (21.0-51.0); MEAN CORPUSCULAR HEMOGLOBIN 26.6 pg (27.0-34.0); MEAN CORPUSCULAR HGB CONC 33.6 g/dL (33.0-35.0); MEAN CORPUSCULAR VOLUME 79.2 fL (80.0-100.0); MEAN PLATELET VOLUME 9.5 fL (7.4-11.0); MONOCYTES # (AUTO) 0.6 x10^3/uL (0.3-0.8); MONOCYTES % (AUTO) 8.6 % (0.0-13.0); NEUTROPHILS # (AUTO) 3.9 x10^3/uL (2.2-4.8); NEUTROPHILS % (AUTO) 59.2 % (42.0-75.0); PLATELET COUNT 181 X10^3/uL (150.0-450.0); RED BLOOD COUNT 4.11 X10^6/uL (3.5-5.4); RED CELL DISTRIBUTION WIDTH 15.6 % (11.6-16.5); WHITE BLOOD COUNT 6.6 X10^3/uL (3.6-10.0)
[2017-03-26] MEDS: NEURONTIN CAP 300 MG PO SCH (06:15)
[2017-03-26] MEDS: GLUCOPHAGE PO SCH (06:16)
[2017-03-26] MEDS: AMARYL TAB 4 MG PO SCH (06:16)
[2017-03-26 06:19] LABS: ALANINE AMINOTRANSFERASE 59 Units/L (12-78); ALBUMIN 2.6 g/dL (3.4-5.0); ALKALINE PHOSPHATASE 301 Units/L (46-116); ASPARTATE AMINO TRANSFERASE 89 Units/L (15-37); BLOOD UREA NITROGEN 6 mg/dL (7-18); CALCIUM 8.3 mg/dL (8.5-10.1); CARBON DIOXIDE 27.4 mmol/L (21-32); CHLORIDE 102 mmol/L (98-107); COR CA(FOR HYPOALB) 9.4 mg/dL (8.5-10.1); COR NA(FOR HYPERGLY) 139 mmol/L (136-145); CREATININE 0.91 mg/dL (0.55-1.02); SODIUM 136 mmol/L (136-145); TOTAL PROTEIN 7.9 g/dL (6.4-8.2); eGFR BLACK RACES > 60 (>60); eGFR NON BLACK RACES > 60 (>60)
[2017-03-26] MEDS: ALBUMIN HUMAN 25%- 100ML 100 ML IV SCH (08:39)
[2017-03-26] MEDS: CARAFATE PO SCH (08:40)
[2017-03-26] MEDS: GENTAMICIN TOPICAL CRM TOP SCH (08:40)
[2017-03-26] MEDS: CYMBALTA PO SCH (08:40)
[2017-03-26] MEDS: JANUVIA PO SCH (08:40)
[2017-03-26] MEDS: LINZESS PO SCH (08:42)
[2017-03-26] MEDS: LANTUS SC SCH (08:42)
[2017-03-26] MEDS: WELLBUTRIN XL 150 MG (DAILY) PO SCH (08:43)
[2017-03-26] MEDS: ROCEPHIN VIAL 1 GM 1 GM in NS 100 ML IV + SPIKE MINIBAG* 100 ML IV SCH (08:43)
[2017-03-26] MEDS: SINGULAIR TAB 10 MG PO SCH (08:43)
[2017-03-26] MEDS: PROTONIX TAB 40 MG PO SCH (08:43)
[2017-03-26] MEDS: NORVASC TAB 5 MG PO SCH (08:43)
[2017-03-26] MEDS: NORCO 10/325 TAB PO PRN (08:44)
[2017-03-26] MEDS: PHENERGAN INJ 25 MG IV PRN (08:44)
[2017-03-26 09:34] VITALS: BP 174/93
== END 2017-03-26 13:10 | disposition home or self-care (01) | DRG 638 ==
LOC: ER 19:21 → OBS 21:39
PROVIDERS: ADMIT Obstetrics & Gynecology Obstetrics; ATTEND Internal Medicine
DX: E11.65 Type 2 diabetes mellitus with hyperglycemia (principal); N39.0 Urinary tract infection, site not specified; E46 Unspecified protein-calorie malnutrition; R53.1 Weakness; R20.0 Anesthesia of skin; R10.84 Generalized abdominal pain; R42 Dizziness and giddiness
CPT/HCPCS: 36415; 36600; 70450; 71250; 74176; 80053; 80061; 81001; 82009; 82150; 82550; 82553; 82803; 83690; 83735; 84484; 85025; 85610; 85730; 86140; 87086; 93005; 94760; 96365; 96367; 96374; 96375; 97535; 99283; 99284; A4222; G8978; G8979; P9047; Q0169; S0106; G0378; J0696; J1815; J2270; J2550

== ENCOUNTER 2017-07-02 10:42 | Inpatient (IN) | payer OTHER, MEDICAID ==
[2017-07-02] MEDS: NS 1000 ML 1,000 ML IV SCH (16:14)
[2017-07-02 16:22] LABS: BASOPHILS % (AUTO) 0.3 % (0.2-1.0); EOSINOPHILS # (AUTO) 0.1 x10^3/uL (0.0-0.2); EOSINOPHILS % (AUTO) 0.7 % (0.9-2.9); HEMATOCRIT 35.7 % (36.0-47.0); HEMOGLOBIN 11.9 g/dL (12.0-16.0); LYMPHOCYTES # (AUTO) 3.3 X10^3/uL (1.3-2.9); LYMPHOCYTES % (AUTO) 40.9 % (21.0-51.0); MEAN CORPUSCULAR HEMOGLOBIN 26.2 pg (27.0-34.0); MEAN CORPUSCULAR HGB CONC 33.3 g/dL (33.0-35.0); MEAN CORPUSCULAR VOLUME 78.9 fL (80.0-100.0); MEAN PLATELET VOLUME 9.4 fL (7.4-11.0); MONOCYTES # (AUTO) 0.6 x10^3/uL (0.3-0.8); MONOCYTES % (AUTO) 6.9 % (0.0-13.0); NEUTROPHILS # (AUTO) 4.2 x10^3/uL (2.2-4.8); NEUTROPHILS % (AUTO) 51.2 % (42.0-75.0); PLATELET COUNT 242 X10^3/uL (150.0-450.0); RED BLOOD COUNT 4.53 X10^6/uL (3.5-5.4); RED CELL DISTRIBUTION WIDTH 16.1 % (11.6-16.5); WHITE BLOOD COUNT 8.1 X10^3/uL (3.6-10.0)
[2017-07-02 16:27] LABS: ALBUMIN 2.6 g/dL (3.4-5.0); CALCIUM 8.9 mg/dL (8.5-10.1); CARBON DIOXIDE 27.8 mmol/L (21-32); CREATININE 1.29 mg/dL (0.55-1.02); TOTAL PROTEIN 9.6 g/dL (6.4-8.2)
[2017-07-02 16:59] VITALS: BMI 37.3
[2017-07-02] MEDS ORDERED: HumuLIN R ONE (17:09)
[2017-07-02] MEDS: BACTRIM DS TAB PO SCH ×2 (17:23→21:21)
[2017-07-02] MEDS: HumuLIN R SUBCUT PRN (17:25)
[2017-07-02] MEDS: MERREM VIAL 1,000 MG in NS 100 ML IV 100 ML IV SCH (21:21)
[2017-07-02] MEDS: PERCOCET TAB 5/325 MG PO PRN (21:21)
[2017-07-02] MEDS: SNACK - Diabetic Appropriate PO SCH (21:22)
[2017-07-02] MEDS ORDERED: HumuLIN R SUBCUT ONE (22:19)
[2017-07-03] MEDS ORDERED: VISTARIL PO ONE (01:45)
[2017-07-03] MEDS: VISTARIL PO PRN (01:47)
[2017-07-03 05:29] LABS: BASOPHILS % (AUTO) 0.5 % (0.2-1.0); EOSINOPHILS # (AUTO) 0.1 x10^3/uL (0.0-0.2); EOSINOPHILS % (AUTO) 0.8 % (0.9-2.9); HEMATOCRIT 37.7 % (36.0-47.0); HEMOGLOBIN 12.5 g/dL (12.0-16.0); LYMPHOCYTES # (AUTO) 3.6 X10^3/uL (1.3-2.9); LYMPHOCYTES % (AUTO) 46.1 % (21.0-51.0); MEAN CORPUSCULAR HEMOGLOBIN 26.3 pg (27.0-34.0); MEAN CORPUSCULAR HGB CONC 33.1 g/dL (33.0-35.0); MEAN CORPUSCULAR VOLUME 79.5 fL (80.0-100.0); MEAN PLATELET VOLUME 9.4 fL (7.4-11.0); MONOCYTES # (AUTO) 0.6 x10^3/uL (0.3-0.8); MONOCYTES % (AUTO) 7.7 % (0.0-13.0); NEUTROPHILS # (AUTO) 3.5 x10^3/uL (2.2-4.8); NEUTROPHILS % (AUTO) 44.9 % (42.0-75.0); PLATELET COUNT 211 X10^3/uL (150.0-450.0); RED BLOOD COUNT 4.74 X10^6/uL (3.5-5.4); RED CELL DISTRIBUTION WIDTH 15.9 % (11.6-16.5); WHITE BLOOD COUNT 7.7 X10^3/uL (3.6-10.0)
[2017-07-03 05:31] LABS: ALANINE AMINOTRANSFERASE 74 Units/L (12-78); ALBUMIN 2.4 g/dL (3.4-5.0); ALKALINE PHOSPHATASE 413 Units/L (46-116); ASPARTATE AMINO TRANSFERASE 121 Units/L (15-37); BLOOD UREA NITROGEN 11 mg/dL (7-18); CALCIUM 8.4 mg/dL (8.5-10.1); CARBON DIOXIDE 25.7 mmol/L (21-32); CHLORIDE 96 mmol/L (98-107); COR CA(FOR HYPOALB) 9.7 mg/dL (8.5-10.1); COR NA(FOR HYPERGLY) 136 mmol/L (136-145); CREATININE 1.13 mg/dL (0.55-1.02); SODIUM 129 mmol/L (136-145); TOTAL PROTEIN 9.1 g/dL (6.4-8.2); eGFR BLACK RACES > 60 (>60); eGFR NON BLACK RACES 54 (>60)
[2017-07-03] MEDS: MERREM VIAL 1,000 MG in NS 100 ML IV 100 ML IV SCH ×3 (05:44→22:00)
[2017-07-03] MEDS: NS 1000 ML 1,000 ML IV SCH ×2 (05:44→18:03)
--- NOTE | 2017-07-03 06:01 | RAD ---
HISTORY: Abdominal pain, constipation Study: Flat and upright abdomen, PA chest Comparison: 10/03/2015, chest CT 03/23/2017 Findings: The abdominal gas pattern is nonspecific and nonobstructive. No pneumoperitoneum is identified. No ab normal masses or abnormal calcifications are identified. There is a large amount of stool throughout the colon. The patient appears to be status post lower abdominal ventral hernia repair. The chest is clear. There is a port present on the right. IMPRESSION: No acute abnormality identified Constipation Lungs clear Reported By:
[2017-07-03] MEDS: HumuLIN R SUBCUT PRN ×4 (06:35→23:00)
[2017-07-03] MEDS: BACTRIM DS TAB PO SCH ×2 (09:46→21:28)
[2017-07-03] MEDS: GENTAMICIN TOPICAL CRM TOP SCH ×3 (09:47→21:29)
[2017-07-03] MEDS ORDERED: PATIENT'S HOME MEDICATION (Metformin Hcl [Metformin Hcl] 1 TAB) PO SCH (11:00)
[2017-07-03] MEDS ORDERED: GLIMEPIRIDE PO SCH (11:00)
[2017-07-03] MEDS ORDERED: PATIENT'S HOME MEDICATION (Montelukast Sodium [Montelukast Sodium] 1 TAB) PO SCH (11:00)
[2017-07-03] MEDS: DEMEROL INJ IVP PRN (11:59)
[2017-07-03] MEDS: CARAFATE PO SCH (12:01)
[2017-07-03] MEDS: LINZESS PO SCH (12:01)
[2017-07-03] MEDS: CYMBALTA PO SCH (12:02)
[2017-07-03] MEDS: JANUVIA PO SCH (12:02)
[2017-07-03] MEDS: PROTONIX TAB 40 MG PO SCH ×2 (12:02→21:27)
[2017-07-03] MEDS: ZANTAC PO SCH ×2 (12:02→21:23)
[2017-07-03] MEDS: NORVASC TAB 5 MG PO SCH (12:02)
[2017-07-03] MEDS: PHENERGAN TAB 25 MG PO PRN (12:02)
[2017-07-03] MEDS: NEURONTIN TAB 600 MG PO SCH ×2 (14:23→21:27)
[2017-07-03] MEDS: GLUCOPHAGE PO SCH (17:29)
[2017-07-03] MEDS ORDERED: GLUCOPHAGE ONE (17:31)
--- NOTE | 2017-07-03 17:52 | DR.UPDATE ---
H&P Update History and Physical Update: WAS SEEN IN THE OFFICE ON 07/02/2017. AN H&P WAS COMPLETED PRIOR TO ADMISSION. PATIENT HAS BEEN SEEN AND EXAMINED WITH NO CHANGES NOTED TO H&P. Changes noted: NO Yes with the following:
[2017-07-03] MEDS ORDERED: PATIENT'S HOME MEDICATION (Amitriptyline Hcl [Amitriptyline Hcl] 1 TAB) PO SCH (21:00)
[2017-07-03] MEDS: SINGULAIR TAB 10 MG PO SCH (21:27)
[2017-07-03] MEDS: ELAVIL PO SCH (21:27)
[2017-07-03] MEDS: AMARYL TAB 4 MG PO SCH (21:28)
[2017-07-03] MEDS: SNACK - Diabetic Appropriate PO SCH ×2 (21:29→23:59)
--- NOTE | 2017-07-03 21:29 | PCM.PROG ---
Progress Note - Progress Note for Day of Date: 07/03/17 - Subjective Subjective: WAS ADMITTED FOR CELLULITIS AND MULTIPLE WOUNDS ALL OVER HER BODY. TODAY, SHE IS ALERT AND ORIENTED, LYING IN BED ON MORNING ROUNDS. SHE IS NOTED WITH COMPLAINTS OF ITCHING, ABDOMINAL PAIN, AND BILATERAL LEG PAIN. HER VITALS TODAY ARE 98.0-94-20-99%-143/81. LABS WERE OBTAINED. ABNORMAL LAB VALUES INCLUDE THE FOLLOWING: SODIUM 129, CHLORIDE 96, CREATININE 1.13, GLUCOSE 412, CALCIUM 8.4, AST 121, ALK PHOS 413, TOTAL PROTEIN 9.1, ALBUMIN 2.4. AN ABDOMEN XRAY WAS OBTAINED THIS MORNING. IT REVEALED CONSTIPATION. SHE IS CURRENTLY RECEIVING BACTRIM DS AND MEROPENEM 1,000MG IV Q8H. TODAY, WE WILL START A BOWEL REGIMEN. OTHERWISE, WE WILL CONTINUE WITH CURRENT PLAN OF CARE. WE WILL FOLLOW UP WITH AM LABS AND FOLLOW UP WITH AM LABS. - Past Medical Family Social History Past Med/Fam/Surg Hx: No changes since H&P Allergies: Allergies aspirin Allergy (Verified 07/02/17 16:15) - Review of Systems ROS: No change since H&P - Vital Signs and I&O's Vital Signs: Temperature 98.8 F Pulse Rate [Left Brachial] 96 Respiratory Rate 18 Blood Pressure [Right Arm] 133/70 Blood Pressure [Left Arm] 138/81 Blood Pressure 174/93 O2 Sat by Pulse Oximetry 98 Intake and Output: Intake & Output 07/01/17 07/02/17 07/03/17 07/04/17 11:59 11:59 11:59 11:59 Intake Total 2120 580 Output Total 4200 Balance 2120 -3620 - Physical Exam Oriented: Normal Eyes: Normal Ear: Normal Nose: Normal Throat: Normal Respiratory: Normal Cardiovascular: Normal : Normal Auscultation: Bowel Sounds: Normal Palpation: Normal Tenderness: Diffuse, Mild. negative: Rebound, Guarding, Rigidity Skin: Wound Musculoskeletal: Normal Psychiatric: Normal Mood Description: Calm Affect: Normal Speech Pattern: Clear, Appropriate - Laboratory and Diagnostics Result Diagrams: 07/03/17 05:02 07/03/17 06:10 Labs: Laboratory WBC 7.7 X10^3/uL (3.6-10.0) 07/03/17 05:02 RBC 4.74 X10^6/uL (3.5-5.4) 07/03/17 05:02 Hgb 12.5 g/dL (12.0-16.0) 07/03/17 05:02 Hct 37.7 % (36.0-47.0) 07/03/17 05:02 MCV 79.5 fL (80.0-100.0) L 07/03/17 05:02 MCH 26.3 pg (27.0-34.0) L 07/03/17 05:02 MCHC 33.1 g/dL (33.0-35.0) 07/03/17 05:02 RDW 15.9 % (11.6-16.5) 07/03/17 05:02 Plt Count 211 X10^3/uL (150.0-450.0) 07/03/17 05:02 MPV 9.4 fL (7.4-11.0) 07/03/17 05:02 Neut % (Auto) 44.9 % (42.0-75.0) 07/03/17 05:02 Lymph % (Auto) 46.1 % (21.0-51.0) 07/03/17 05:02 [place] % (Auto) 7.7 % (0.0-13.0) 07/03/17 05:02 Eos % (Auto) 0.8 % (0.9-2.9) L 07/03/17 05:02 Baso % (Auto) 0.5 % (0.2-1.0) 07/03/17 05:02 Neut # (Auto) 3.5 x10^3/uL (2.2-4.8) 07/03/17 05:02 Lymph # (Auto) 3.6 X10^3/uL (1.3-2.9) H 07/03/17 05:02 [place] # (Auto) 0.6 x10^3/uL (0.3-0.8) 07/03/17 05:02 Eos # (Auto) 0.1 x10^3/uL (0.0-0.2) 07/03/17 05:02 Baso # (Auto) 0.0 X10^3/uL (0.0-0.1) 07/03/17 05:02 Absolute Nucleated RBC 0.1 /100WBC 07/03/17 05:02 Sodium 129 mmol/L (136-145) L 07/03/17 05:02 Corrected Sodium 136 mmol/L (136-145) 07/03/17 05:02 Potassium 4.2 mmol/L (3.5-5.1) 07/03/17 05:02 Chloride 96 mmol/L (98-107) L 07/03/17 05:02 Carbon Dioxide 25.7 mmol/L (21-32) 07/03/17 05:02 BUN 11 mg/dL (7-18) 07/03/17 05:02 Creatinine 1.13 mg/dL (0.55-1.02) H 07/03/17 05:02 Est GFR (MDRD) Af Amer > 60 (>60) 07/03/17 05:02 Est GFR (MDRD) Non-Af 54 (>60) L 07/03/17 05:02 Glucose 398 mg/dL (65-99) H 07/03/17 06:10 POC Glucose (mg/dL) 343 mg/dL (65-99) H 07/03/17 17:00 Calcium 8.4 mg/dL (8.5-10.1) L 07/03/17 05:02 Corrected Calcium 9.7 mg/dL (8.5-10.1) 07/03/17 05:02 Total Bilirubin 0.70 mg/dL (0.2-1.0) 07/03/17 05:02 AST 121 Units/L (15-37) H 07/03/17 05:02 ALT 74 Units/L (12-78) 07/03/17 05:02 Alkaline Phosphatase 413 Units/L (46-116) H 07/03/17 05:02 Total Protein 9.1 g/dL (6.4-8.2) H 07/03/17 05:02 Albumin 2.4 g/dL (3.4-5.0) L 07/03/17 05:02 Globulin 6.7 g/dL (2.5-4.5) H 07/03/17 05:02 Albumin/Globulin Ratio 0.4 Ratio (1.1-2.1) L 07/03/17 05:02
[2017-07-03] MEDS: LANTUS SC SCH (23:13)
[2017-07-04] MEDS: CARAFATE PO SCH ×3 (00:02→21:24)
[2017-07-04] MEDS: DEMEROL INJ IVP PRN ×4 (00:45→17:05)
[2017-07-04 05:28] LABS: BASOPHILS % (AUTO) 0.5 % (0.2-1.0); EOSINOPHILS # (AUTO) 0.1 x10^3/uL (0.0-0.2); EOSINOPHILS % (AUTO) 1.1 % (0.9-2.9); HEMATOCRIT 34.2 % (36.0-47.0); HEMOGLOBIN 11.4 g/dL (12.0-16.0); LYMPHOCYTES # (AUTO) 2.9 X10^3/uL (1.3-2.9); LYMPHOCYTES % (AUTO) 39.5 % (21.0-51.0); MEAN CORPUSCULAR HEMOGLOBIN 26.6 pg (27.0-34.0); MEAN CORPUSCULAR HGB CONC 33.4 g/dL (33.0-35.0); MEAN CORPUSCULAR VOLUME 79.8 fL (80.0-100.0); MEAN PLATELET VOLUME 9.9 fL (7.4-11.0); MONOCYTES # (AUTO) 0.5 x10^3/uL (0.3-0.8); MONOCYTES % (AUTO) 7.3 % (0.0-13.0); NEUTROPHILS # (AUTO) 3.7 x10^3/uL (2.2-4.8); NEUTROPHILS % (AUTO) 51.6 % (42.0-75.0); PLATELET COUNT 169 X10^3/uL (150.0-450.0); RED BLOOD COUNT 4.28 X10^6/uL (3.5-5.4); RED CELL DISTRIBUTION WIDTH 16.3 % (11.6-16.5); WHITE BLOOD COUNT 7.3 X10^3/uL (3.6-10.0)
[2017-07-04] MEDS ORDERED: GLUCOPHAGE ONE ×2 (05:28→16:56)
[2017-07-04] MEDS: HumuLIN R SUBCUT PRN ×4 (05:56→21:39)
[2017-07-04] MEDS: MERREM VIAL 1,000 MG in NS 100 ML IV 100 ML IV SCH ×3 (06:07→21:22)
[2017-07-04] MEDS: GLUCOPHAGE PO SCH ×2 (06:08→17:04)
[2017-07-04] MEDS: NEURONTIN TAB 600 MG PO SCH ×3 (06:08→21:17)
[2017-07-04] MEDS: NS 1000 ML 1,000 ML IV SCH ×2 (06:21→21:23)
[2017-07-04 06:35] LABS: ALANINE AMINOTRANSFERASE 74 Units/L (12-78); ALBUMIN 2.3 g/dL (3.4-5.0); ALKALINE PHOSPHATASE 387 Units/L (46-116); ASPARTATE AMINO TRANSFERASE 93 Units/L (15-37); BLOOD UREA NITROGEN 11 mg/dL (7-18); CALCIUM 8.5 mg/dL (8.5-10.1); CARBON DIOXIDE 25.4 mmol/L (21-32); CHLORIDE 100 mmol/L (98-107); COR CA(FOR HYPOALB) 9.9 mg/dL (8.5-10.1); COR NA(FOR HYPERGLY) 138 mmol/L (136-145); CREATININE 1.14 mg/dL (0.55-1.02); SODIUM 131 mmol/L (136-145); TOTAL PROTEIN 8.8 g/dL (6.4-8.2); eGFR BLACK RACES > 60 (>60); eGFR NON BLACK RACES 54 (>60)
[2017-07-04] MEDS: PHARMACY CONSULT - DOSE _____ XX SCH ×2 (07:35→07:36)
[2017-07-04] MEDS: BACTRIM DS TAB PO SCH ×2 (09:50→21:17)
[2017-07-04] MEDS: AMARYL TAB 4 MG PO SCH ×2 (09:50→21:21)
[2017-07-04] MEDS: LANTUS SC SCH ×2 (09:51→21:38)
[2017-07-04] MEDS: CYMBALTA PO SCH (09:51)
[2017-07-04] MEDS: JANUVIA PO SCH (09:51)
[2017-07-04] MEDS: GENTAMICIN TOPICAL CRM TOP SCH ×3 (09:51→21:23)
[2017-07-04] MEDS: LINZESS PO SCH (09:57)
[2017-07-04] MEDS: PROTONIX TAB 40 MG PO SCH ×2 (09:57→21:17)
[2017-07-04] MEDS: NORVASC TAB 5 MG PO SCH (09:57)
[2017-07-04] MEDS: ZANTAC PO SCH ×2 (09:58→21:17)
[2017-07-04] MEDS: MILK OF MAGNESIA PO SCH ×2 (10:20→21:16)
[2017-07-04] MEDS: BENADRYL CAP/TAB 25 MG PO PRN (10:22)
[2017-07-04] MEDS: PHENERGAN TAB 25 MG PO PRN ×2 (10:23→17:06)
[2017-07-04] MEDS: PERCOCET TAB 5/325 MG PO PRN ×2 (13:27→21:38)
[2017-07-04] MEDS: SNACK - Diabetic Appropriate PO SCH ×2 (20:00→21:23)
[2017-07-04] MEDS: VISTARIL PO PRN (21:16)
[2017-07-04] MEDS: SINGULAIR TAB 10 MG PO SCH (21:20)
[2017-07-04] MEDS: ELAVIL PO SCH (21:21)
[2017-07-05] MEDS ORDERED: GLUCOPHAGE ONE ×2 (05:35→17:07)
[2017-07-05] MEDS: NEURONTIN TAB 600 MG PO SCH ×3 (05:49→21:50)
[2017-07-05] MEDS: MERREM VIAL 1,000 MG in NS 100 ML IV 100 ML IV SCH ×3 (05:49→21:54)
[2017-07-05] MEDS: DEMEROL INJ IVP PRN ×3 (06:00→18:26)
[2017-07-05 06:05] LABS: BASOPHILS % (AUTO) 0.3 % (0.2-1.0); EOSINOPHILS % (AUTO) 0.6 % (0.9-2.9); HEMATOCRIT 34.8 % (36.0-47.0); HEMOGLOBIN 11.7 g/dL (12.0-16.0); LYMPHOCYTES # (AUTO) 2.1 X10^3/uL (1.3-2.9); LYMPHOCYTES % (AUTO) 27.5 % (21.0-51.0); MEAN CORPUSCULAR HEMOGLOBIN 26.3 pg (27.0-34.0); MEAN CORPUSCULAR HGB CONC 33.6 g/dL (33.0-35.0); MEAN CORPUSCULAR VOLUME 78.3 fL (80.0-100.0); MEAN PLATELET VOLUME 9.5 fL (7.4-11.0); MONOCYTES # (AUTO) 0.5 x10^3/uL (0.3-0.8); MONOCYTES % (AUTO) 6.7 % (0.0-13.0); NEUTROPHILS # (AUTO) 4.9 x10^3/uL (2.2-4.8); NEUTROPHILS % (AUTO) 64.9 % (42.0-75.0); PLATELET COUNT 250 X10^3/uL (150.0-450.0); RED BLOOD COUNT 4.44 X10^6/uL (3.5-5.4); RED CELL DISTRIBUTION WIDTH 16.3 % (11.6-16.5); WHITE BLOOD COUNT 7.5 X10^3/uL (3.6-10.0)
[2017-07-05 06:23] LABS: HEMOGLOBIN A1C 14.7 %
[2017-07-05 06:32] LABS: ALBUMIN 2.3 g/dL (3.4-5.0); CALCIUM 8.1 mg/dL (8.5-10.1); CARBON DIOXIDE 24.6 mmol/L (21-32); COR CA(FOR HYPOALB) 9.5 mg/dL (8.5-10.1); CREATININE 1.36 mg/dL (0.55-1.02); TOTAL PROTEIN 9.1 g/dL (6.4-8.2)
[2017-07-05] MEDS: HumuLIN R SUBCUT PRN ×2 (06:35→12:18)
[2017-07-05] MEDS: GLUCOPHAGE PO SCH ×2 (06:45→17:30)
--- NOTE | 2017-07-05 06:55 | RAD ---
Examination: Portable AP chest History: Dyspnea Comparison reference 05/26/2016 Findings: Continued normal heart size. Lungs essentially clear, considering hypoaeration. Minimal sec ondary atelectasis suggested in the bases. No consolidation, pneumothorax or pleural fluid. Stable po sition of injection port. Impression: No significant abnormality. See above. Reported By:
[2017-07-05] MEDS: JANUVIA PO SCH (08:40)
[2017-07-05] MEDS: LANTUS SC SCH ×2 (08:40→22:23)
[2017-07-05] MEDS: ZANTAC PO SCH ×2 (08:40→21:50)
[2017-07-05] MEDS: AMARYL TAB 4 MG PO SCH ×2 (08:40→21:51)
[2017-07-05] MEDS: PROTONIX TAB 40 MG PO SCH ×2 (08:41→21:51)
[2017-07-05] MEDS: CARAFATE PO SCH ×2 (08:41→21:51)
[2017-07-05] MEDS: PERCOCET TAB 5/325 MG PO PRN (08:41)
[2017-07-05] MEDS: NORVASC TAB 5 MG PO SCH (08:41)
[2017-07-05] MEDS: BACTRIM DS TAB PO SCH ×2 (08:41→21:52)
[2017-07-05] MEDS: LINZESS PO SCH (08:42)
[2017-07-05] MEDS: NS 1000 ML 1,000 ML IV SCH ×2 (08:42→21:54)
[2017-07-05] MEDS: GENTAMICIN TOPICAL CRM TOP SCH ×3 (08:43→21:53)
[2017-07-05] MEDS: CYMBALTA PO SCH (08:48)
[2017-07-05] MEDS: BENADRYL CAP/TAB 25 MG PO PRN (10:48)
[2017-07-05] MEDS: SNACK - Diabetic Appropriate PO SCH (21:48)
[2017-07-05] MEDS: VISTARIL PO PRN (21:50)
[2017-07-05] MEDS: ELAVIL PO SCH (21:51)
[2017-07-05] MEDS: SINGULAIR TAB 10 MG PO SCH (21:51)
[2017-07-06] MEDS: DEMEROL INJ IVP PRN ×4 (00:59→21:03)
[2017-07-06 05:15] LABS: BASOPHILS # (AUTO) 0.1 X10^3/uL (0.0-0.1); BASOPHILS % (AUTO) 0.9 % (0.2-1.0); EOSINOPHILS # (AUTO) 0.1 x10^3/uL (0.0-0.2); EOSINOPHILS % (AUTO) 1.1 % (0.9-2.9); HEMATOCRIT 36.6 % (36.0-47.0); LYMPHOCYTES # (AUTO) 4.7 X10^3/uL (1.3-2.9); LYMPHOCYTES % (AUTO) 41.6 % (21.0-51.0); MEAN CORPUSCULAR HEMOGLOBIN 25.8 pg (27.0-34.0); MEAN CORPUSCULAR HGB CONC 32.9 g/dL (33.0-35.0); MEAN CORPUSCULAR VOLUME 78.6 fL (80.0-100.0); MEAN PLATELET VOLUME 9.6 fL (7.4-11.0); MONOCYTES # (AUTO) 0.7 x10^3/uL (0.3-0.8); MONOCYTES % (AUTO) 6.2 % (0.0-13.0); NEUTROPHILS # (AUTO) 5.6 x10^3/uL (2.2-4.8); NEUTROPHILS % (AUTO) 50.2 % (42.0-75.0); PLATELET COUNT 244 X10^3/uL (150.0-450.0); RED BLOOD COUNT 4.65 X10^6/uL (3.5-5.4); RED CELL DISTRIBUTION WIDTH 16.5 % (11.6-16.5); WHITE BLOOD COUNT 11.2 X10^3/uL (3.6-10.0)
[2017-07-06 05:25] LABS: ALANINE AMINOTRANSFERASE 102 Units/L (12-78); ALBUMIN 2.4 g/dL (3.4-5.0); ALKALINE PHOSPHATASE 433 Units/L (46-116); ASPARTATE AMINO TRANSFERASE 178 Units/L (15-37); BLOOD UREA NITROGEN 9 mg/dL (7-18); CALCIUM 8.6 mg/dL (8.5-10.1); CARBON DIOXIDE 23.1 mmol/L (21-32); CHLORIDE 101 mmol/L (98-107); COR CA(FOR HYPOALB) 9.9 mg/dL (8.5-10.1); CREATININE 1.07 mg/dL (0.55-1.02); SODIUM 135 mmol/L (136-145); TOTAL PROTEIN 9.4 g/dL (6.4-8.2); eGFR BLACK RACES > 60 (>60); eGFR NON BLACK RACES 58 (>60)
[2017-07-06] MEDS ORDERED: GLUCOPHAGE ONE ×2 (05:32→17:36)
[2017-07-06] MEDS: MERREM VIAL 1,000 MG in NS 100 ML IV 100 ML IV SCH ×3 (05:44→21:02)
[2017-07-06] MEDS: NEURONTIN TAB 600 MG PO SCH ×3 (05:44→21:02)
[2017-07-06 05:53] LABS: PLATELET MORPHOLOGY COMMENT NORMAL (NORMAL)
[2017-07-06] MEDS: GLUCOPHAGE PO SCH ×2 (06:04→17:40)
[2017-07-06] MEDS: BACTRIM DS TAB PO SCH ×2 (08:25→20:18)
[2017-07-06] MEDS: AMARYL TAB 4 MG PO SCH ×2 (08:26→20:18)
[2017-07-06] MEDS: CYMBALTA PO SCH (08:26)
[2017-07-06] MEDS: ZANTAC PO SCH ×2 (08:26→20:23)
[2017-07-06] MEDS: NORVASC TAB 5 MG PO SCH (08:26)
[2017-07-06] MEDS: JANUVIA PO SCH (08:26)
[2017-07-06] MEDS: PROTONIX TAB 40 MG PO SCH ×2 (08:26→20:19)
[2017-07-06] MEDS: CARAFATE PO SCH ×2 (08:26→20:18)
[2017-07-06] MEDS: LINZESS PO SCH (08:26)
[2017-07-06] MEDS: LANTUS SC SCH ×2 (08:27→20:21)
[2017-07-06] MEDS: GENTAMICIN TOPICAL CRM TOP SCH ×3 (08:33→20:19)
[2017-07-06] MEDS: NS 1000 ML 1,000 ML IV SCH (10:49)
--- NOTE | 2017-07-06 14:49 | CT ---
History: Swelling and cellulitis of lower extremities, mainly on the right Study: CTA of lower extremities without and then with and unknown amount and type of intravenous cont rast. Sagittal and coronal reformations were provided. Axial and sagittal and coronal MIPS were obtai margie. Findings: There is prominent atherosclerotic calcification in the wall of the superficial femoral art eries bilaterally. There is mild atherosclerotic plaquing in the abdominal aorta. There is no aortic aneurysm. The iliac and common femoral artery's are widely patent. The superficial femoral and profun da femora sore artery's and popliteal arteries are widely patent bilaterally. There is three-vessel r unoff below the knees bilaterally. No aneurysm or thrombus or significant stenosis is demonstrated. P lantar branches appear to be patent in both feet. Impression: No significant stenosis or aneurysm is demonstrated with patent runoff bilaterally to the feet. Reported By:
[2017-07-06] MEDS: SNACK - Diabetic Appropriate PO SCH (20:18)
[2017-07-06] MEDS: SINGULAIR TAB 10 MG PO SCH (20:19)
[2017-07-06] MEDS: ELAVIL PO SCH (20:19)
[2017-07-06] MEDS: PERCOCET TAB 5/325 MG PO PRN (23:33)
[2017-07-07] MEDS: NS 1000 ML 1,000 ML IV SCH ×3 (00:42→14:34)
[2017-07-07 02:24] LABS: CRYPTOSPORIDIUM PARVUM ANTIGEN NEGATIVE (NEGATIVE); GIARDIA LAMBLIA ANTIGEN NEGATIVE (NEGATIVE)
[2017-07-07 02:25] LABS: STOOL FOR WBC POSITIVE (NEGATIVE)
--- NOTE | 2017-07-07 03:24 | US ---
Liver ultrasound Indication: Abnormal liver enzymes Comparison: None Technique: Sonographic images of the abdomen were obtained per protocol. Findings: The pancreas was obscured. The liver is mildly enlarged, measuring approximately 20 cm in c raniocaudal span. Liver echotexture is normal. The gallbladder is surgically absent. No biliary dilat ion is observed; the common duct measures 7 mm in diameter. The right kidney is 11.1 x 3.9 x 5.2 cm. There is no hydronephrosis. Impression: Mild hepatomegaly. Reported By:
[2017-07-07] MEDS: DEMEROL INJ IVP PRN ×3 (04:07→21:30)
[2017-07-07] MEDS ORDERED: GLUCOPHAGE ONE ×3 (05:21→16:12)
[2017-07-07] MEDS: NEURONTIN TAB 600 MG PO SCH ×3 (05:40→21:11)
[2017-07-07] MEDS: MERREM VIAL 1,000 MG in NS 100 ML IV 100 ML IV SCH ×3 (05:40→21:11)
[2017-07-07] MEDS: GLUCOPHAGE PO SCH ×2 (06:07→16:15)
[2017-07-07 06:58] LABS: BASOPHILS % (AUTO) 0.5 % (0.2-1.0); EOSINOPHILS # (AUTO) 0.1 x10^3/uL (0.0-0.2); EOSINOPHILS % (AUTO) 0.7 % (0.9-2.9); HEMATOCRIT 34.1 % (36.0-47.0); HEMOGLOBIN 11.5 g/dL (12.0-16.0); LYMPHOCYTES # (AUTO) 2.2 X10^3/uL (1.3-2.9); LYMPHOCYTES % (AUTO) 27.1 % (21.0-51.0); MEAN CORPUSCULAR HEMOGLOBIN 26.4 pg (27.0-34.0); MEAN CORPUSCULAR HGB CONC 33.8 g/dL (33.0-35.0); MEAN CORPUSCULAR VOLUME 78.2 fL (80.0-100.0); MEAN PLATELET VOLUME 9.5 fL (7.4-11.0); MONOCYTES # (AUTO) 0.4 x10^3/uL (0.3-0.8); NEUTROPHILS # (AUTO) 5.5 x10^3/uL (2.2-4.8); NEUTROPHILS % (AUTO) 66.7 % (42.0-75.0); PLATELET COUNT 202 X10^3/uL (150.0-450.0); RED BLOOD COUNT 4.37 X10^6/uL (3.5-5.4); RED CELL DISTRIBUTION WIDTH 16.2 % (11.6-16.5); WHITE BLOOD COUNT 8.2 X10^3/uL (3.6-10.0)
[2017-07-07 07:06] LABS: ALANINE AMINOTRANSFERASE 108 Units/L (12-78); ALBUMIN 2.2 g/dL (3.4-5.0); ALKALINE PHOSPHATASE 432 Units/L (46-116); ASPARTATE AMINO TRANSFERASE 182 Units/L (15-37); BLOOD UREA NITROGEN 7 mg/dL (7-18); CARBON DIOXIDE 23.7 mmol/L (21-32); CHLORIDE 103 mmol/L (98-107); COR CA(FOR HYPOALB) 9.4 mg/dL (8.5-10.1); CREATININE 0.94 mg/dL (0.55-1.02); SODIUM 136 mmol/L (136-145); TOTAL PROTEIN 8.5 g/dL (6.4-8.2); eGFR BLACK RACES > 60 (>60); eGFR NON BLACK RACES > 60 (>60)
[2017-07-07] MEDS ORDERED: BACITRACIN VIAL ONE (08:33)
[2017-07-07] MEDS ORDERED: LR 1000 ML IV 1,000 ML IV ONE (08:41)
[2017-07-07] MEDS ORDERED: NS IRRIGATION 1000 ML 1,000 ML IR ONE (09:14)
[2017-07-07] MEDS: BACTRIM DS TAB PO SCH ×2 (09:41→20:50)
[2017-07-07] MEDS: JANUVIA PO SCH (09:41)
[2017-07-07] MEDS: CARAFATE PO SCH ×2 (09:41→20:50)
[2017-07-07] MEDS: PROTONIX TAB 40 MG PO SCH ×2 (09:41→20:51)
[2017-07-07] MEDS: ZANTAC PO SCH ×2 (09:42→20:50)
[2017-07-07] MEDS: CYMBALTA PO SCH (09:42)
[2017-07-07] MEDS: GENTAMICIN TOPICAL CRM TOP SCH ×2 (09:42→20:53)
[2017-07-07] MEDS: NORVASC TAB 5 MG PO SCH (09:42)
[2017-07-07] MEDS: AMARYL TAB 4 MG PO SCH ×2 (10:23→20:53)
[2017-07-07] MEDS ORDERED: DIPRIVAN VIAL ONE (13:21)
[2017-07-07] MEDS ORDERED: VERSED ONE (13:21)
[2017-07-07] MEDS: PERCOCET TAB 5/325 MG PO PRN (14:34)
[2017-07-07] MEDS: LANTUS SC SCH (14:42)
[2017-07-07] MEDS: ELAVIL PO SCH (20:50)
[2017-07-07] MEDS: SINGULAIR TAB 10 MG PO SCH (20:51)
[2017-07-07] MEDS: SNACK - Diabetic Appropriate PO SCH (20:52)
[2017-07-07] MEDS ORDERED: LANTUS SC SCH (21:00)
[2017-07-07] MEDS: PHENERGAN TAB 25 MG PO PRN (21:15)
[2017-07-08] MEDS: DEMEROL INJ IVP PRN ×2 (01:28→14:27)
[2017-07-08] MEDS: NS 1000 ML 1,000 ML IV SCH ×3 (02:07→14:32)
[2017-07-08] MEDS ORDERED: GLUCOPHAGE ONE ×2 (05:10→16:50)
[2017-07-08] MEDS: NEURONTIN TAB 600 MG PO SCH ×3 (05:20→20:59)
[2017-07-08] MEDS: MERREM VIAL 1,000 MG in NS 100 ML IV 100 ML IV SCH ×3 (05:20→21:00)
[2017-07-08 05:29] LABS: BASOPHILS % (AUTO) 0.6 % (0.2-1.0); EOSINOPHILS # (AUTO) 0.1 x10^3/uL (0.0-0.2); EOSINOPHILS % (AUTO) 1.1 % (0.9-2.9); HEMATOCRIT 31.7 % (36.0-47.0); HEMOGLOBIN 10.8 g/dL (12.0-16.0); LYMPHOCYTES # (AUTO) 3.1 X10^3/uL (1.3-2.9); LYMPHOCYTES % (AUTO) 39.3 % (21.0-51.0); MEAN CORPUSCULAR HEMOGLOBIN 26.8 pg (27.0-34.0); MEAN CORPUSCULAR HGB CONC 34.2 g/dL (33.0-35.0); MEAN CORPUSCULAR VOLUME 78.3 fL (80.0-100.0); MEAN PLATELET VOLUME 9.5 fL (7.4-11.0); MONOCYTES # (AUTO) 0.5 x10^3/uL (0.3-0.8); MONOCYTES % (AUTO) 6.7 % (0.0-13.0); NEUTROPHILS # (AUTO) 4.2 x10^3/uL (2.2-4.8); NEUTROPHILS % (AUTO) 52.3 % (42.0-75.0); PLATELET COUNT 176 X10^3/uL (150.0-450.0); RED BLOOD COUNT 4.05 X10^6/uL (3.5-5.4); RED CELL DISTRIBUTION WIDTH 16.4 % (11.6-16.5)
[2017-07-08 05:42] LABS: ALANINE AMINOTRANSFERASE 109 Units/L (12-78); ALKALINE PHOSPHATASE 412 Units/L (46-116); ASPARTATE AMINO TRANSFERASE 172 Units/L (15-37); BLOOD UREA NITROGEN 5 mg/dL (7-18); CALCIUM 7.7 mg/dL (8.5-10.1); CARBON DIOXIDE 24.8 mmol/L (21-32); CHLORIDE 104 mmol/L (98-107); COR CA(FOR HYPOALB) 9.3 mg/dL (8.5-10.1); CREATININE 0.84 mg/dL (0.55-1.02); SODIUM 136 mmol/L (136-145); TOTAL PROTEIN 7.9 g/dL (6.4-8.2); eGFR BLACK RACES > 60 (>60); eGFR NON BLACK RACES > 60 (>60)
[2017-07-08] MEDS: GLUCOPHAGE PO SCH ×2 (06:50→16:56)
[2017-07-08] MEDS: CARAFATE PO SCH ×2 (10:08→20:59)
[2017-07-08] MEDS: CYMBALTA PO SCH (10:08)
[2017-07-08] MEDS: ZANTAC PO SCH ×2 (10:08→20:59)
[2017-07-08] MEDS: PROTONIX TAB 40 MG PO SCH ×2 (10:08→20:59)
[2017-07-08] MEDS: GENTAMICIN TOPICAL CRM TOP SCH ×2 (10:08→20:59)
[2017-07-08] MEDS: NORVASC TAB 5 MG PO SCH (10:08)
[2017-07-08] MEDS: BACTRIM DS TAB PO SCH ×2 (10:08→20:59)
[2017-07-08] MEDS: AMARYL TAB 4 MG PO SCH (11:41)
[2017-07-08] MEDS: JANUVIA PO SCH (11:42)
[2017-07-08] MEDS: PERCOCET TAB 5/325 MG PO PRN ×2 (11:49→21:00)
--- NOTE | 2017-07-08 13:21 | PCM.PROG ---
Progress Note - Progress Note for Day of Date: 07/06/17 - Subjective Subjective: WAS ADMITTED FOR CELLULITIS AND MULTIPLE WOUNDS ALL OVER HER BODY. TODAY, SHE IS ALERT AND ORIENTED, LYING IN BED ON MORNING ROUNDS. SHE IS NOTED WITH COMPLAINTS OF ITCHING, ABDOMINAL PAIN, AND BILATERAL LEG PAIN. HER VITALS TODAY ARE 98.6-100-20-95%-126/74. LABS WERE OBTAINED. WBC 11.2, AST 178, ALT 102, ALK PHOS 433, OTHERWISE, SHE IS HEMODYNAMICALLY STABLE TODAY. A LOWER EXTREMITY CTA WAS OBTAINED TODAY. IT REVEALED NO SIGNIFICANT STENOSIS OR ANEURYSM DEMONSTRATED WITH PATENT RUNOFF BILATERALLY TO THE FEET. SHE IS CURRENTLY RECEIVING BACTRIM DS AND MEROPENEM 1,000MG IV Q8H. TODAY, WE WILL ORDER A LIVER ULTRASOUND AND OBTAIN A HEPATITIS PANEL. HAS CONSULTED WITH PATIENT AND PLANS FOR DEBRIDEMENT OF ULCERS TO THE RIGHT FOOT TOMORROW. OTHERWISE, WE WILL CONTINUE WITH CURRENT PLAN OF CARE. WE WILL FOLLOW UP WITH AM LABS AND CONTINUE TO MONITOR PATIENT. - Past Medical Family Social History Past Med/Fam/Surg Hx: No changes since H&P Allergies: Allergies aspirin Allergy (Verified 07/02/17 16:15) - Review of Systems ROS: No change since H&P - Vital Signs and I&O's Vital Signs: Temperature 97.9 F Pulse Rate [Left Brachial] 96 Respiratory Rate 20 Blood Pressure [Right Arm] 168/85 Blood Pressure [Left Arm] 141/64 Blood Pressure 174/93 O2 Sat by Pulse Oximetry 99 Intake and Output: Intake & Output 07/06/17 07/07/17 07/08/17 07/09/17 11:59 11:59 11:59 11:59 Intake Total 1820 2480 2830 Output Total 800 1000 Balance 1020 1480 2830 - Physical Exam Oriented: Normal Eyes: Normal Ear: Normal Nose: Normal Throat: Normal Respiratory: Normal Cardiovascular: Normal : Normal Auscultation: Bowel Sounds: Normal Palpation: Normal Tenderness: Diffuse, Mild. negative: Rebound, Guarding, Rigidity Skin: Wound Musculoskeletal: Normal Psychiatric: Normal Mood Description: Calm Affect: Normal Speech Pattern: Clear, Appropriate - Laboratory and Diagnostics Result Diagrams: 07/08/17 04:24 07/08/17 04:24 Labs: 07/07/17 00:39 Stool Stool Culture - Preliminary 07/07/17 00:39 Stool - Final 07/07/17 09:45 Drainage Gram Stain - Final 07/07/17 09:45 Drainage Wound Culture - Preliminary 07/02/17 16:13 Blood Blood Culture - Final 07/02/17 15:53 Blood Blood Culture - Final Laboratory WBC 8.0 X10^3/uL (3.6-10.0) 07/08/17 04:24 RBC 4.05 X10^6/uL (3.5-5.4) 07/08/17 04:24 Hgb 10.8 g/dL (12.0-16.0) L 07/08/17 04:24 Hct 31.7 % (36.0-47.0) L 07/08/17 04:24 MCV 78.3 fL (80.0-100.0) L 07/08/17 04:24 MCH 26.8 pg (27.0-34.0) L 07/08/17 04:24 MCHC 34.2 g/dL (33.0-35.0) 07/08/17 04:24 RDW 16.4 % (11.6-16.5) 07/08/17 04:24 Plt Count 176 X10^3/uL (150.0-450.0) 07/08/17 04:24 Plt Count Comment Adequate (ADEQUATE) 07/06/17 04:55 MPV 9.5 fL (7.4-11.0) 07/08/17 04:24 Neut % (Auto) 52.3 % (42.0-75.0) 07/08/17 04:24 Lymph % (Auto) 39.3 % (21.0-51.0) 07/08/17 04:24 [place] % (Auto) 6.7 % (0.0-13.0) 07/08/17 04:24 Eos % (Auto) 1.1 % (0.9-2.9) 07/08/17 04:24 Baso % (Auto) 0.6 % (0.2-1.0) 07/08/17 04:24 Neut # (Auto) 4.2 x10^3/uL (2.2-4.8) 07/08/17 04:24 Lymph # (Auto) 3.1 X10^3/uL (1.3-2.9) H 07/08/17 04:24 [place] # (Auto) 0.5 x10^3/uL (0.3-0.8) 07/08/17 04:24 Eos # (Auto) 0.1 x10^3/uL (0.0-0.2) 07/08/17 04:24 Baso # (Auto) 0.0 X10^3/uL (0.0-0.1) 07/08/17 04:24 Absolute Nucleated RBC 0.0 /100WBC 07/08/17 04:24 Plt Morphology Comment Normal (NORMAL) 07/06/17 04:55 RBC Morphology Normal (NORMAL) 07/06/17 04:55 Sodium 136 mmol/L (136-145) 07/08/17 04:24 Corrected Sodium TNP 07/08/17 04:24 Potassium 4.5 mmol/L (3.5-5.1) 07/08/17 04:24 Chloride 104 mmol/L (98-107) 07/08/17 04:24 Carbon Dioxide 24.8 mmol/L (21-32) 07/08/17 04:24 BUN 5 mg/dL (7-18) L 07/08/17 04:24 Creatinine 0.84 mg/dL (0.55-1.02) 07/08/17 04:24 Est GFR (MDRD) Af Amer > 60 (>60) 07/08/17 04:24 Est GFR (MDRD) Non-Af > 60 (>60) 07/08/17 04:24 Glucose 74 mg/dL (65-99) 07/08/17 04:24 POC Glucose (mg/dL) 100 mg/dL (65-99) H 07/08/17 11:19 Hemoglobin A1c 14.7 % 07/05/17 05:49 Calcium 7.7 mg/dL (8.5-10.1) L 07/08/17 04:24 Corrected Calcium 9.3 mg/dL (8.5-10.1) 07/08/17 04:24 Total Bilirubin 0.80 mg/dL (0.2-1.0) 07/08/17 04:24 AST 172 Units/L (15-37) H 07/08/17 04:24 ALT 109 Units/L (12-78) H 07/08/17 04:24 Alkaline Phosphatase 412 Units/L (46-116) H 07/08/17 04:24 Total Protein 7.9 g/dL (6.4-8.2) 07/08/17 04:24 Albumin 2.0 g/dL (3.4-5.0) L 07/08/17 04:24 Globulin 5.9 g/dL (2.5-4.5) H 07/08/17 04:24 Albumin/Globulin Ratio 0.3 Ratio (1.1-2.1) L 07/08/17 04:24 Stool Description 30 g. brown/liquid 07/07/17 00:39 Stl Occult Blood (IFOB) Negative (NEGATIVE) 07/07/17 00:39 Stool for White Cells Positive (NEGATIVE) A 07/07/17 00:39 Stl C. diff Tox B Gene Negative (NEGATIVE) 07/07/17 00:39 Stl C. diff 027-NAP1-BI Negative (NEGATIVE) 07/07/17 00:39 Cryptosporid parvum Ag Negative (NEGATIVE) 07/07/17 00:39 E. histolytica Antigen Negative (NEGATIVE) 07/07/17 00:39 Giardia lamblia Ag Negative (NEGATIVE) 07/07/17 00:39 Tissue Pathology To follow 07/07/17 09:45
--- NOTE | 2017-07-08 13:36 | PCM.PROG ---
Progress Note - Progress Note for Day of Date: 07/07/17 - Subjective Subjective: WAS ADMITTED FOR CELLULITIS AND MULTIPLE WOUNDS ALL OVER HER BODY. TODAY, SHE IS ALERT AND ORIENTED, LYING IN BED ON MORNING ROUNDS. SHE IS NOTED WITH COMPLAINTS OF ITCHING, ABDOMINAL PAIN, AND BILATERAL LEG PAIN. HER VITALS TODAY ARE 97.7-93-20-96%-126/69. LABS WERE OBTAINED. AST 182, ALT 108 , ALK PHOS 432, OTHERWISE, SHE IS HEMODYNAMICALLY STABLE TODAY. A LIVER ULTRASOUND WAS OBTAINED YESTERDAY AND REVEALS MILD HEPATOMEGALY. SHE IS CURRENTLY RECEIVING BACTRIM DS AND MEROPENEM 1,000MG IV Q8H. PLANS FOR DEBRIDEMENT OF ULCERS TO THE RIGHT FOOT TODAY. WE ARE IN AGREEMENT WITH PLAN. WE WILL CONTINUE WITH CURRENT PLAN OF CARE TODAY. WE WILL FOLLOW UP WITH AM LABS AND CONTINUE TO MONITOR PATIENT. - Past Medical Family Social History Past Med/Fam/Surg Hx: No changes since H&P Allergies: Allergies aspirin Allergy (Verified 07/02/17 16:15) - Review of Systems ROS: No change since H&P - Vital Signs and I&O's Vital Signs: Temperature 97.9 F Pulse Rate [Left Brachial] 96 Respiratory Rate 20 Blood Pressure [Right Arm] 168/85 Blood Pressure [Left Arm] 141/64 Blood Pressure 174/93 O2 Sat by Pulse Oximetry 99 Intake and Output: Intake & Output 07/06/17 07/07/17 07/08/17 07/09/17 11:59 11:59 11:59 11:59 Intake Total 1820 2480 2830 Output Total 800 1000 Balance 1020 1480 2830 - Physical Exam Oriented: Normal Eyes: Normal Ear: Normal Nose: Normal Throat: Normal Respiratory: Normal Cardiovascular: Normal : Normal Auscultation: Bowel Sounds: Normal Palpation: Normal Tenderness: Diffuse, Mild. negative: Rebound, Guarding, Rigidity Skin: Wound Musculoskeletal: Normal Psychiatric: Normal Mood Description: Calm Affect: Normal Speech Pattern: Clear, Appropriate - Laboratory and Diagnostics Result Diagrams: 07/08/17 04:24 07/08/17 04:24 Labs: 07/07/17 00:39 Stool Stool Culture - Preliminary 07/07/17 00:39 Stool - Final 07/07/17 09:45 Drainage Gram Stain - Final 07/07/17 09:45 Drainage Wound Culture - Preliminary 07/02/17 16:13 Blood Blood Culture - Final 07/02/17 15:53 Blood Blood Culture - Final Laboratory WBC 8.0 X10^3/uL (3.6-10.0) 07/08/17 04:24 RBC 4.05 X10^6/uL (3.5-5.4) 07/08/17 04:24 Hgb 10.8 g/dL (12.0-16.0) L 07/08/17 04:24 Hct 31.7 % (36.0-47.0) L 07/08/17 04:24 MCV 78.3 fL (80.0-100.0) L 07/08/17 04:24 MCH 26.8 pg (27.0-34.0) L 07/08/17 04:24 MCHC 34.2 g/dL (33.0-35.0) 07/08/17 04:24 RDW 16.4 % (11.6-16.5) 07/08/17 04:24 Plt Count 176 X10^3/uL (150.0-450.0) 07/08/17 04:24 Plt Count Comment Adequate (ADEQUATE) 07/06/17 04:55 MPV 9.5 fL (7.4-11.0) 07/08/17 04:24 Neut % (Auto) 52.3 % (42.0-75.0) 07/08/17 04:24 Lymph % (Auto) 39.3 % (21.0-51.0) 07/08/17 04:24 [place] % (Auto) 6.7 % (0.0-13.0) 07/08/17 04:24 Eos % (Auto) 1.1 % (0.9-2.9) 07/08/17 04:24 Baso % (Auto) 0.6 % (0.2-1.0) 07/08/17 04:24 Neut # (Auto) 4.2 x10^3/uL (2.2-4.8) 07/08/17 04:24 Lymph # (Auto) 3.1 X10^3/uL (1.3-2.9) H 07/08/17 04:24 [place] # (Auto) 0.5 x10^3/uL (0.3-0.8) 07/08/17 04:24 Eos # (Auto) 0.1 x10^3/uL (0.0-0.2) 07/08/17 04:24 Baso # (Auto) 0.0 X10^3/uL (0.0-0.1) 07/08/17 04:24 Absolute Nucleated RBC 0.0 /100WBC 07/08/17 04:24 Plt Morphology Comment Normal (NORMAL) 07/06/17 04:55 RBC Morphology Normal (NORMAL) 07/06/17 04:55 Sodium 136 mmol/L (136-145) 07/08/17 04:24 Corrected Sodium TNP 07/08/17 04:24 Potassium 4.5 mmol/L (3.5-5.1) 07/08/17 04:24 Chloride 104 mmol/L (98-107) 07/08/17 04:24 Carbon Dioxide 24.8 mmol/L (21-32) 07/08/17 04:24 BUN 5 mg/dL (7-18) L 07/08/17 04:24 Creatinine 0.84 mg/dL (0.55-1.02) 07/08/17 04:24 Est GFR (MDRD) Af Amer > 60 (>60) 07/08/17 04:24 Est GFR (MDRD) Non-Af > 60 (>60) 07/08/17 04:24 Glucose 74 mg/dL (65-99) 07/08/17 04:24 POC Glucose (mg/dL) 100 mg/dL (65-99) H 07/08/17 11:19 Hemoglobin A1c 14.7 % 07/05/17 05:49 Calcium 7.7 mg/dL (8.5-10.1) L 07/08/17 04:24 Corrected Calcium 9.3 mg/dL (8.5-10.1) 07/08/17 04:24 Total Bilirubin 0.80 mg/dL (0.2-1.0) 07/08/17 04:24 AST 172 Units/L (15-37) H 07/08/17 04:24 ALT 109 Units/L (12-78) H 07/08/17 04:24 Alkaline Phosphatase 412 Units/L (46-116) H 07/08/17 04:24 Total Protein 7.9 g/dL (6.4-8.2) 07/08/17 04:24 Albumin 2.0 g/dL (3.4-5.0) L 07/08/17 04:24 Globulin 5.9 g/dL (2.5-4.5) H 07/08/17 04:24 Albumin/Globulin Ratio 0.3 Ratio (1.1-2.1) L 07/08/17 04:24 Stool Description 30 g. brown/liquid 07/07/17 00:39 Stl Occult Blood (IFOB) Negative (NEGATIVE) 07/07/17 00:39 Stool for White Cells Positive (NEGATIVE) A 07/07/17 00:39 Stl C. diff Tox B Gene Negative (NEGATIVE) 07/07/17 00:39 Stl C. diff 027-NAP1-BI Negative (NEGATIVE) 07/07/17 00:39 Cryptosporid parvum Ag Negative (NEGATIVE) 07/07/17 00:39 E. histolytica Antigen Negative (NEGATIVE) 07/07/17 00:39 Giardia lamblia Ag Negative (NEGATIVE) 07/07/17 00:39 Tissue Pathology To follow 07/07/17 09:45
--- NOTE | 2017-07-08 14:34 | RAD ---
History: Right foot pain and swelling with an open wound Study: Three views right foot including AP oblique and lateral projections Findings: There is no fracture or dislocation or marginal osteophyte formation. No bone erosion or de struction is demonstrated. Impression: Negative Reported By:
--- NOTE | 2017-07-08 16:47 | DR.PROGNOT ---
Hospital Progress Notes - Progress Note for Day of: Progress Note Date: 07/08/17 - Chief Complaint Chief Complaint: PO debridement of Rt 1st 2ed toes . stable , no significant pain , no drainage . - Past Medical Family Social History Past Med/Fam/Surg Hx: No changes since H&P Allergies: Allergies aspirin Allergy (Verified 07/02/17 16:15) - Review Of Systems ROS: No change since H&P - Vital Signs Vital Signs: Temperature 97.9 F Pulse Rate [Left Brachial] 96 Respiratory Rate 20 Blood Pressure [Right Arm] 168/85 Blood Pressure [Left Arm] 141/64 Blood Pressure 174/93 O2 Sat by Pulse Oximetry 99 - Physical Exam Oriented: Normal Eyes: Normal Ear: Normal Nose: Normal Throat: Normal Respiratory: Normal Cardiovascular: Normal : Normal GI:Auscultation: Normal GI:Palpation: Normal GI: Tenderness: Diffuse, Mild. negative: Rebound, Guarding, Rigidity Skin: Wound Musculoskeletal: Normal, Foot (Rt foot dressing was removed toes ulcers are dry with hammer toe deformity ..) Psychiatric: Normal Mood Description: Calm Affect: Normal Speech Pattern: Clear, Appropriate - Laboratory and Diagnostics Result Diagrams: 07/08/17 04:24 07/08/17 04:24 Labs: 07/07/17 00:39 Stool Stool Culture - Preliminary 07/07/17 00:39 Stool - Final 07/07/17 09:45 Drainage Gram Stain - Final 07/07/17 09:45 Drainage Wound Culture - Preliminary 07/02/17 16:13 Blood Blood Culture - Final 07/02/17 15:53 Blood Blood Culture - Final Laboratory WBC 8.0 X10^3/uL (3.6-10.0) 07/08/17 04:24 RBC 4.05 X10^6/uL (3.5-5.4) 07/08/17 04:24 Hgb 10.8 g/dL (12.0-16.0) L 07/08/17 04:24 Hct 31.7 % (36.0-47.0) L 07/08/17 04:24 MCV 78.3 fL (80.0-100.0) L 07/08/17 04:24 MCH 26.8 pg (27.0-34.0) L 07/08/17 04:24 MCHC 34.2 g/dL (33.0-35.0) 07/08/17 04:24 RDW 16.4 % (11.6-16.5) 07/08/17 04:24 Plt Count 176 X10^3/uL (150.0-450.0) 07/08/17 04:24 Plt Count Comment Adequate (ADEQUATE) 07/06/17 04:55 MPV 9.5 fL (7.4-11.0) 07/08/17 04:24 Neut % (Auto) 52.3 % (42.0-75.0) 07/08/17 04:24 Lymph % (Auto) 39.3 % (21.0-51.0) 07/08/17 04:24 [place] % (Auto) 6.7 % (0.0-13.0) 07/08/17 04:24 Eos % (Auto) 1.1 % (0.9-2.9) 07/08/17 04:24 Baso % (Auto) 0.6 % (0.2-1.0) 07/08/17 04:24 Neut # (Auto) 4.2 x10^3/uL (2.2-4.8) 07/08/17 04:24 Lymph # (Auto) 3.1 X10^3/uL (1.3-2.9) H 07/08/17 04:24 [place] # (Auto) 0.5 x10^3/uL (0.3-0.8) 07/08/17 04:24 Eos # (Auto) 0.1 x10^3/uL (0.0-0.2) 07/08/17 04:24 Baso # (Auto) 0.0 X10^3/uL (0.0-0.1) 07/08/17 04:24 Absolute Nucleated RBC 0.0 /100WBC 07/08/17 04:24 Plt Morphology Comment Normal (NORMAL) 07/06/17 04:55 RBC Morphology Normal (NORMAL) 07/06/17 04:55 Sodium 136 mmol/L (136-145) 07/08/17 04:24 Corrected Sodium TNP 07/08/17 04:24 Potassium 4.5 mmol/L (3.5-5.1) 07/08/17 04:24 Chloride 104 mmol/L (98-107) 07/08/17 04:24 Carbon Dioxide 24.8 mmol/L (21-32) 07/08/17 04:24 BUN 5 mg/dL (7-18) L 07/08/17 04:24 Creatinine 0.84 mg/dL (0.55-1.02) 07/08/17 04:24 Est GFR (MDRD) Af Amer > 60 (>60) 07/08/17 04:24 Est GFR (MDRD) Non-Af > 60 (>60) 07/08/17 04:24 Glucose 74 mg/dL (65-99) 07/08/17 04:24 POC Glucose (mg/dL) 98 mg/dL (65-99) 07/08/17 16:18 Hemoglobin A1c 14.7 % 07/05/17 05:49 Calcium 7.7 mg/dL (8.5-10.1) L 07/08/17 04:24 Corrected Calcium 9.3 mg/dL (8.5-10.1) 07/08/17 04:24 Total Bilirubin 0.80 mg/dL (0.2-1.0) 07/08/17 04:24 AST 172 Units/L (15-37) H 07/08/17 04:24 ALT 109 Units/L (12-78) H 07/08/17 04:24 Alkaline Phosphatase 412 Units/L (46-116) H 07/08/17 04:24 Total Protein 7.9 g/dL (6.4-8.2) 07/08/17 04:24 Albumin 2.0 g/dL (3.4-5.0) L 07/08/17 04:24 Globulin 5.9 g/dL (2.5-4.5) H 07/08/17 04:24 Albumin/Globulin Ratio 0.3 Ratio (1.1-2.1) L 07/08/17 04:24 Stool Description 30 g. brown/liquid 07/07/17 00:39 Stl Occult Blood (IFOB) Negative (NEGATIVE) 07/07/17 00:39 Stool for White Cells Positive (NEGATIVE) A 07/07/17 00:39 Stl C. diff Tox B Gene Negative (NEGATIVE) 07/07/17 00:39 Stl C. diff 027-NAP1-BI Negative (NEGATIVE) 07/07/17 00:39 Cryptosporid parvum Ag Negative (NEGATIVE) 07/07/17 00:39 E. histolytica Antigen Negative (NEGATIVE) 07/07/17 00:39 Giardia lamblia Ag Negative (NEGATIVE) 07/07/17 00:39 Tissue Pathology To follow 07/07/17 09:45 - Assessment and Plan 1: pressure ulcers with cellulitis Rt 1 ,2 toes and hammer toe deformities. same local care , IV ATB and orthopedic cosult to correct hammer toe deformity to help heal the ulcers .
[2017-07-08] MEDS: ELAVIL PO SCH (20:59)
[2017-07-08] MEDS: SINGULAIR TAB 10 MG PO SCH (20:59)
[2017-07-08] MEDS: SNACK - Diabetic Appropriate PO SCH (21:00)
[2017-07-09] MEDS: DEMEROL INJ IVP PRN ×4 (00:25→18:37)
[2017-07-09] MEDS: BENADRYL CAP/TAB 25 MG PO PRN (04:10)
[2017-07-09 05:23] LABS: BASOPHILS % (AUTO) 0.5 % (0.2-1.0); EOSINOPHILS # (AUTO) 0.1 x10^3/uL (0.0-0.2); EOSINOPHILS % (AUTO) 0.8 % (0.9-2.9); HEMATOCRIT 33.3 % (36.0-47.0); HEMOGLOBIN 11.2 g/dL (12.0-16.0); LYMPHOCYTES # (AUTO) 3.2 X10^3/uL (1.3-2.9); LYMPHOCYTES % (AUTO) 40.5 % (21.0-51.0); MEAN CORPUSCULAR HEMOGLOBIN 26.2 pg (27.0-34.0); MEAN CORPUSCULAR HGB CONC 33.7 g/dL (33.0-35.0); MEAN CORPUSCULAR VOLUME 77.6 fL (80.0-100.0); MEAN PLATELET VOLUME 9.8 fL (7.4-11.0); MONOCYTES # (AUTO) 0.4 x10^3/uL (0.3-0.8); MONOCYTES % (AUTO) 5.5 % (0.0-13.0); NEUTROPHILS # (AUTO) 4.1 x10^3/uL (2.2-4.8); NEUTROPHILS % (AUTO) 52.7 % (42.0-75.0); PLATELET COUNT 156 X10^3/uL (150.0-450.0); RED BLOOD COUNT 4.29 X10^6/uL (3.5-5.4); RED CELL DISTRIBUTION WIDTH 15.9 % (11.6-16.5); WHITE BLOOD COUNT 7.8 X10^3/uL (3.6-10.0)
[2017-07-09 05:40] LABS: ALANINE AMINOTRANSFERASE 111 Units/L (12-78); ALBUMIN 2.2 g/dL (3.4-5.0); ALKALINE PHOSPHATASE 458 Units/L (46-116); ASPARTATE AMINO TRANSFERASE 165 Units/L (15-37); BLOOD UREA NITROGEN 5 mg/dL (7-18); CALCIUM 7.6 mg/dL (8.5-10.1); CARBON DIOXIDE 27.1 mmol/L (21-32); CHLORIDE 102 mmol/L (98-107); COR NA(FOR HYPERGLY) 134 mmol/L (136-145); CREATININE 0.78 mg/dL (0.55-1.02); SODIUM 133 mmol/L (136-145); TOTAL PROTEIN 8.4 g/dL (6.4-8.2); eGFR BLACK RACES > 60 (>60); eGFR NON BLACK RACES > 60 (>60)
[2017-07-09] MEDS ORDERED: GLUCOPHAGE ONE ×2 (06:05→17:57)
[2017-07-09] MEDS: MERREM VIAL 1,000 MG in NS 100 ML IV 100 ML IV SCH ×3 (06:18→21:00)
[2017-07-09] MEDS: NEURONTIN TAB 600 MG PO SCH ×3 (06:18→21:00)
[2017-07-09] MEDS: GLUCOPHAGE PO SCH ×2 (07:25→18:03)
[2017-07-09] MEDS: NORVASC TAB 5 MG PO SCH (08:50)
[2017-07-09] MEDS: ZANTAC PO SCH ×2 (08:50→20:56)
[2017-07-09] MEDS: PROTONIX TAB 40 MG PO SCH ×2 (08:50→20:56)
[2017-07-09] MEDS: BACTRIM DS TAB PO SCH ×2 (08:50→20:56)
[2017-07-09] MEDS: CARAFATE PO SCH ×2 (08:50→20:57)
[2017-07-09] MEDS: GENTAMICIN TOPICAL CRM TOP SCH ×2 (08:51→20:57)
[2017-07-09] MEDS: CYMBALTA PO SCH (08:51)
--- NOTE | 2017-07-09 11:24 | DR.CONSULT ---
Consult - Consultation for Day of: Date: 07/08/17 - Chief Complaint Chief Complaint: RIGHT foot deformity. RIGHT foot ulceration - Allergies Allergies/Adverse Reactions: Allergies Allergy/AdvReac Type Severity Reaction Status Date / Time aspirin Allergy Verified 07/02/17 16:15 - History of Present Illness History of Present Illness: patient is a 51-year-old female admitted in the hospital for ulceration of RIGHT foot. Patient is admitted under Dr. ORNELAS. Patient had foot debridement done by Dr.Al Carmen. Consultation was placed for wi. History noted. Patient is a known case of neuropathy. not specific which type of neuropathy. Has noticed progressive deformity of the RIGHT foot. For the last few months has noted ulcerations on top of the great toe as well as 2nd toe. - Past Medical History Past Medical History: Anxiety, Arthritis, Asthma, COPD, Dementia, Depression, Diabetes, Dyslipidemia, GERD, Hypertension, Kidney Stones Additional Medical History: NEUROPATHY, CONSTIPATION, ENDOMETRIOSIS, - Past Surgical History Surgical History: Cholecystectomy, Hysterectomy Additional Surgical History: HERNIA REPAIR, CATARACTS, CYST REMOVED FROM BUTTOCKS, BACK SURGERY, D&C - Family History Family Medical History: Diabetes Mellitus, Cancer, Coronary Artery Disease, Heart Failure, Hypertension - Social History Does patient currently use any type of tobacco product: No Have you used tobacco products in the last 12 months: No Type of Tobacco Use: None Does any household member use tobacco: No Alcohol Use: None Drug Use: None - Medications Home Medications: Gabapentin 1 tab PO TID 07/02/17 [History Confirmed 07/02/17] Insulin Aspart Protamine & Asp [NovoLOG MIX 70/30 INSULIN 10 ML VIAL *] 0 units SC QID PRN 07/02/17 [History Confirmed 07/02/17] Ranitidine HCl 1 tab PO BID 07/02/17 [History Confirmed 07/02/17] - Review of Systems Constitutional: No Symptoms Reported Eyes: No Symptoms Reported ENT: No Symptoms Reported Musculoskeletal: See HPI - Physical Exam Vital Signs: Temperature 98.1 F Pulse Rate [Left Brachial] 87 Respiratory Rate 18 Blood Pressure [Right Arm] 155/79 Blood Pressure [Left Arm] 141/64 Blood Pressure 174/93 O2 Sat by Pulse Oximetry 97 Oriented: Normal Eyes: Normal Ear: Normal Nose: Normal Musculoskeletal: Right, Foot, Tender, Deformity (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 Ulceration seen over the dorsal aspect of the PIP. Underlying bone exposed. Ulceration about 2 cm in diameter. Clean edges seen due to the recent debridement. Ulceration also seen on the dorsal aspect of the IP joint of the great toe. The deformity seems to be significant for the 2nd one causing ulceration. The former is also seen in the lesser toes but not as significant as the 2nd one. Deformity is correctable. No significant contractures noted.) - Plan Plan: patient has a claw toe deformity. there is ulceration due to the claw toe deformity. The ulceration closes without any tension after correction of the deformity. The ulceration on the great toe does not seem to be closing post correction of the deformity. At the great toe and also does not have significant deformity. That might need some sort of wound VAC on closure secondary to release the relaxing incisions. X-rays were done which showed do not show any obvious fractures or dislocation. Joint space and alignment seems to be maintained. Again claw toes deformity noted. Natural history and treatment discussions were done. Patient wants to proceed with surgery. Patient posted for surgery. Risk and Benefits discussed with her.
[2017-07-09] MEDS: HumuLIN R SUBCUT PRN ×3 (11:32→20:55)
[2017-07-09] MEDS: NS 1000 ML 1,000 ML IV SCH ×2 (15:11→19:01)
[2017-07-09] MEDS: VISTARIL PO PRN (20:56)
[2017-07-09] MEDS: ELAVIL PO SCH (20:56)
[2017-07-09] MEDS: SNACK - Diabetic Appropriate PO SCH (20:57)
[2017-07-09] MEDS: SINGULAIR TAB 10 MG PO SCH (20:57)
[2017-07-09] MEDS: PERCOCET TAB 5/325 MG PO PRN (20:58)
[2017-07-10] MEDS: DEMEROL INJ IVP PRN ×4 (00:13→21:48)
[2017-07-10 00:32] LABS: HEPATITIS A ANTIBODY IGM Negative (Negative)
[2017-07-10] MEDS: MERREM VIAL 1,000 MG in NS 100 ML IV 100 ML IV SCH ×3 (05:11→22:09)
[2017-07-10] MEDS: NS 1000 ML 1,000 ML IV SCH ×2 (05:11→18:59)
[2017-07-10] MEDS ORDERED: GLUCOPHAGE ONE ×2 (05:51→15:14)
[2017-07-10] MEDS: GLUCOPHAGE PO SCH ×2 (06:05→16:00)
[2017-07-10] MEDS: NEURONTIN TAB 600 MG PO SCH ×3 (06:05→21:52)
[2017-07-10] MEDS: BENADRYL CAP/TAB 25 MG PO PRN (06:07)
[2017-07-10 06:31] LABS: BASOPHILS % (AUTO) 0.5 % (0.2-1.0); EOSINOPHILS # (AUTO) 0.1 x10^3/uL (0.0-0.2); EOSINOPHILS % (AUTO) 0.9 % (0.9-2.9); HEMATOCRIT 33.7 % (36.0-47.0); HEMOGLOBIN 11.3 g/dL (12.0-16.0); LYMPHOCYTES # (AUTO) 4.1 X10^3/uL (1.3-2.9); LYMPHOCYTES % (AUTO) 49.7 % (21.0-51.0); MEAN CORPUSCULAR HEMOGLOBIN 26.2 pg (27.0-34.0); MEAN CORPUSCULAR HGB CONC 33.4 g/dL (33.0-35.0); MEAN CORPUSCULAR VOLUME 78.5 fL (80.0-100.0); MEAN PLATELET VOLUME 10.2 fL (7.4-11.0); MONOCYTES # (AUTO) 0.4 x10^3/uL (0.3-0.8); MONOCYTES % (AUTO) 5.1 % (0.0-13.0); NEUTROPHILS # (AUTO) 3.7 x10^3/uL (2.2-4.8); NEUTROPHILS % (AUTO) 43.8 % (42.0-75.0); PLATELET COUNT 112 X10^3/uL (150.0-450.0); RED BLOOD COUNT 4.29 X10^6/uL (3.5-5.4); RED CELL DISTRIBUTION WIDTH 16.2 % (11.6-16.5); WHITE BLOOD COUNT 8.3 X10^3/uL (3.6-10.0)
[2017-07-10 06:49] LABS: BLOOD UREA NITROGEN 7 mg/dL (7-18); CHLORIDE 98 mmol/L (98-107); eGFR BLACK RACES > 60 (>60)
[2017-07-10 07:09] LABS: ALANINE AMINOTRANSFERASE 111 Units/L (12-78); ALBUMIN 2.3 g/dL (3.4-5.0); ALKALINE PHOSPHATASE 496 Units/L (46-116); ASPARTATE AMINO TRANSFERASE 145 Units/L (15-37); CARBON DIOXIDE 27.2 mmol/L (21-32); COR CA(FOR HYPOALB) 9.4 mg/dL (8.5-10.1); COR NA(FOR HYPERGLY) 136 mmol/L (136-145); CREATININE 1.12 mg/dL (0.55-1.02); SODIUM 133 mmol/L (136-145); TOTAL PROTEIN 8.9 g/dL (6.4-8.2); eGFR NON BLACK RACES 55 (>60)
[2017-07-10 07:47] LABS: HEPATITIS B CORE IGM Negative (Negative); HEPATITIS B SURFACE ANTIGEN Negative (Negative)
[2017-07-10] MEDS: CYMBALTA PO SCH (08:58)
[2017-07-10] MEDS: CARAFATE PO SCH ×2 (08:59→21:50)
[2017-07-10] MEDS: PROTONIX TAB 40 MG PO SCH ×2 (08:59→21:51)
[2017-07-10] MEDS: BACTRIM DS TAB PO SCH ×2 (08:59→21:50)
[2017-07-10] MEDS: ZANTAC PO SCH ×2 (08:59→21:51)
[2017-07-10] MEDS: GENTAMICIN TOPICAL CRM TOP SCH ×2 (09:00→22:11)
[2017-07-10] MEDS: NORVASC TAB 5 MG PO SCH (09:01)
[2017-07-10] MEDS: HumuLIN R SUBCUT PRN ×2 (11:53→23:23)
[2017-07-10] MEDS ORDERED: NS 1000 ML 1,000 ML ONE (13:07)
[2017-07-10] MEDS ORDERED: ADRENALINE CHL INJ ONE (13:19)
[2017-07-10] MEDS ORDERED: MARCAINE 0.25% INJ ONE (13:19)
[2017-07-10] MEDS ORDERED: FENTANYL INJ 100 mcg ONE (13:19)
[2017-07-10] MEDS ORDERED: NS IRRIGATION 1000 ML 1,000 ML with BACITRACIN VIAL 50,000 UNIT IR ONE ×2 (13:59)
[2017-07-10] MEDS ORDERED: HYDROGEN PEROXIDE 3% ONE (14:17)
--- NOTE | 2017-07-10 15:15 | RAD ---
Examination: Right foot, three views History: Postop Comparison reference: 07/08/2017 Findings: A surgical pin/K-wire is now present passing through the 2nd toe phalanges into the 2nd met atarsal. Alignment of segments is anatomic. There is no evidence for fracture, osteomyelitis or artic ular deformity. Impression: Interval postsurgical findings 2nd toe. No new abnormality demonstrated. Reported By:
[2017-07-10] MEDS ORDERED: VERSED ONE (15:16)
[2017-07-10] MEDS ORDERED: DIPRIVAN VIAL ONE (15:16)
[2017-07-10] MEDS ORDERED: XYLOCAINE 2 % (PLAIN) ONE (15:16)
[2017-07-10] MEDS: SNACK - Diabetic Appropriate PO SCH (20:30)
[2017-07-10] MEDS: ELAVIL PO SCH (21:50)
[2017-07-10] MEDS: SINGULAIR TAB 10 MG PO SCH (21:51)
[2017-07-10] MEDS: PERCOCET TAB 5/325 MG PO PRN (23:22)
[2017-07-11] MEDS: DEMEROL INJ IVP PRN ×4 (00:30→19:59)
[2017-07-11] MEDS: BENADRYL CAP/TAB 25 MG PO PRN (02:44)
[2017-07-11] MEDS: NEURONTIN TAB 600 MG PO SCH ×3 (05:40→21:30)
[2017-07-11] MEDS: MERREM VIAL 1,000 MG in NS 100 ML IV 100 ML IV SCH ×3 (05:41→21:26)
[2017-07-11] MEDS ORDERED: GLUCOPHAGE ONE ×2 (05:51→16:50)
[2017-07-11] MEDS: GLUCOPHAGE PO SCH ×2 (06:09→17:50)
[2017-07-11] MEDS: NS 1000 ML 1,000 ML IV SCH (06:09)
[2017-07-11 06:51] LABS: BASOPHILS % (AUTO) 0.6 % (0.2-1.0); EOSINOPHILS % (AUTO) 0.6 % (0.9-2.9); HEMATOCRIT 32.4 % (36.0-47.0); LYMPHOCYTES # (AUTO) 3.4 X10^3/uL (1.3-2.9); LYMPHOCYTES % (AUTO) 42.7 % (21.0-51.0); MEAN CORPUSCULAR HEMOGLOBIN 26.6 pg (27.0-34.0); MEAN CORPUSCULAR HGB CONC 34.1 g/dL (33.0-35.0); MEAN CORPUSCULAR VOLUME 77.8 fL (80.0-100.0); MEAN PLATELET VOLUME 10.1 fL (7.4-11.0); MONOCYTES # (AUTO) 0.6 x10^3/uL (0.3-0.8); NEUTROPHILS # (AUTO) 3.9 x10^3/uL (2.2-4.8); NEUTROPHILS % (AUTO) 49.1 % (42.0-75.0); PLATELET COUNT 145 X10^3/uL (150.0-450.0); RED BLOOD COUNT 4.16 X10^6/uL (3.5-5.4); RED CELL DISTRIBUTION WIDTH 16.5 % (11.6-16.5)
[2017-07-11 07:16] LABS: BLOOD UREA NITROGEN 8 mg/dL (7-18); eGFR BLACK RACES > 60 (>60); eGFR NON BLACK RACES > 60 (>60)
[2017-07-11 08:19] LABS: ALANINE AMINOTRANSFERASE 96 Units/L (12-78); ALKALINE PHOSPHATASE 439 Units/L (46-116); ASPARTATE AMINO TRANSFERASE 121 Units/L (15-37); CALCIUM 7.6 mg/dL (8.5-10.1); CARBON DIOXIDE 23.1 mmol/L (21-32); CHLORIDE 99 mmol/L (98-107); COR CA(FOR HYPOALB) 9.2 mg/dL (8.5-10.1); COR NA(FOR HYPERGLY) 136 mmol/L (136-145); CREATININE 0.88 mg/dL (0.55-1.02); SODIUM 133 mmol/L (136-145)
[2017-07-11] MEDS: CARAFATE PO SCH ×2 (10:41→21:27)
[2017-07-11] MEDS: GENTAMICIN TOPICAL CRM TOP SCH ×2 (10:42→21:33)
[2017-07-11] MEDS: PROTONIX TAB 40 MG PO SCH ×2 (10:42→21:30)
[2017-07-11] MEDS: NORVASC TAB 5 MG PO SCH (10:42)
[2017-07-11] MEDS: BACTRIM DS TAB PO SCH ×2 (10:42→21:26)
[2017-07-11] MEDS: ZANTAC PO SCH ×2 (10:42→21:30)
[2017-07-11] MEDS: PERCOCET TAB 5/325 MG PO PRN ×2 (10:43→21:38)
[2017-07-11] MEDS: CYMBALTA PO SCH (11:28)
[2017-07-11] MEDS: HumuLIN R SUBCUT PRN ×4 (11:29→21:37)
[2017-07-11] MEDS ORDERED: NS 100 ML IV 100 ML IV ONE (11:52)
--- NOTE | 2017-07-11 15:42 | CT ---
HISTORY: Abdominal pain Study: CT abdomen and pelvis with contrast Comparison: 03/23/2017 Technique: Multiple axial images of the abdomen and pelvis were obtained from the lung bases to the pubic symphy sis after the administration of IV contrast. Findings: The visualized portions of the lung bases are unremarkable. Small volume ascites is visualized scattered within the abdomen. There is inflammatory stranding with in the upper central abdomen and right abdomen, extending inferiorly along the right pericolic gutter . This inflammatory stranding appears to possibly originate from the pancreas, as there is peripancre atic stranding as well as indistinctness of the pancreatic head and uncinate process. These findings may represent acute pancreatitis. Correlation with amylase and lipase values is recommended. There ap pears to be mild wall thickening involving the duodenum which may be reactive secondary to adjacent i nflammation. There are multiple enlarged ilia hepatis lymph nodes identified, the largest measuring approximately 1.4 cm in diameter. These lymph nodes are nonspecific and could be reactive in nature. However, attention to these nodes is recommended on follow-up exam. No extraluminal free air is ident ified within the abdomen or pelvis. The patient is status post cholecystectomy. The liver is enlarged in size. There is no intrahepatic ductal dilatation or hepatic mass identified. The spleen and bilat eral adrenal glands are unremarkable. The kidneys demonstrate normal postcontrast enhancement. There is no hydronephrosis. The patient is status post right hemicolectomy. The patient is also status post ventral abdominal wall hernia repair with likely surgical mesh within the midline abdominal wall. Th e urinary bladder is distended but grossly unremarkable. The bony structures are grossly intact. IMPRESSION: 1. Inflammatory changes throughout the upper abdomen and right abdomen as well as scattered free flu id, with inflammatory changes appearing to possibly originate from the pancreas, which is very hetero geneous and indistinct in appearance. These findings may represent acute pancreatitis. Correlation wi th amylase and lipase values is recommended. Follow-up examination is recommended to document resolut ion and to evaluate the above described enlarged ilia hepatis lymph nodes. Reported By:
[2017-07-11 19:59] LABS: AMYLASE 39 Units/L (25-115); LIPASE 78 Units/L (73-393)
[2017-07-11] MEDS: SNACK - Diabetic Appropriate PO SCH (20:30)
[2017-07-11] MEDS: ELAVIL PO SCH (21:29)
[2017-07-11] MEDS: SINGULAIR TAB 10 MG PO SCH (21:30)
[2017-07-12] MEDS: DEMEROL INJ IVP PRN (00:50)
[2017-07-12] MEDS: NEURONTIN TAB 600 MG PO SCH ×3 (05:45→21:38)
[2017-07-12] MEDS: MERREM VIAL 1,000 MG in NS 100 ML IV 100 ML IV SCH ×3 (05:45→21:38)
[2017-07-12] MEDS ORDERED: GLUCOPHAGE ONE ×2 (06:04→17:02)
[2017-07-12] MEDS: GLUCOPHAGE PO SCH ×2 (06:12→17:12)
[2017-07-12] MEDS: HumuLIN R SUBCUT PRN ×2 (06:12→13:17)
[2017-07-12 07:08] LABS: BASOPHILS % (AUTO) 0.4 % (0.2-1.0); EOSINOPHILS # (AUTO) 0.1 x10^3/uL (0.0-0.2); EOSINOPHILS % (AUTO) 0.9 % (0.9-2.9); HEMATOCRIT 30.9 % (36.0-47.0); HEMOGLOBIN 10.4 g/dL (12.0-16.0); LYMPHOCYTES # (AUTO) 3.5 X10^3/uL (1.3-2.9); LYMPHOCYTES % (AUTO) 44.8 % (21.0-51.0); MEAN CORPUSCULAR HEMOGLOBIN 26.2 pg (27.0-34.0); MEAN CORPUSCULAR HGB CONC 33.8 g/dL (33.0-35.0); MEAN CORPUSCULAR VOLUME 77.4 fL (80.0-100.0); MEAN PLATELET VOLUME 9.7 fL (7.4-11.0); MONOCYTES # (AUTO) 0.5 x10^3/uL (0.3-0.8); MONOCYTES % (AUTO) 6.9 % (0.0-13.0); NEUTROPHILS # (AUTO) 3.7 x10^3/uL (2.2-4.8); PLATELET COUNT 216 X10^3/uL (150.0-450.0); RED BLOOD COUNT 3.98 X10^6/uL (3.5-5.4); RED CELL DISTRIBUTION WIDTH 15.8 % (11.6-16.5); WHITE BLOOD COUNT 7.9 X10^3/uL (3.6-10.0)
[2017-07-12] MEDS: NS 1000 ML 1,000 ML IV SCH ×3 (07:10→17:15)
[2017-07-12 07:34] LABS: ALANINE AMINOTRANSFERASE 87 Units/L (12-78); ALKALINE PHOSPHATASE 427 Units/L (46-116); ASPARTATE AMINO TRANSFERASE 101 Units/L (15-37); BLOOD UREA NITROGEN 9 mg/dL (7-18); CALCIUM 7.7 mg/dL (8.5-10.1); CHLORIDE 101 mmol/L (98-107); COR CA(FOR HYPOALB) 9.3 mg/dL (8.5-10.1); COR NA(FOR HYPERGLY) 137 mmol/L (136-145); CREATININE 1.13 mg/dL (0.55-1.02); SODIUM 135 mmol/L (136-145); TOTAL PROTEIN 7.9 g/dL (6.4-8.2); eGFR BLACK RACES > 60 (>60); eGFR NON BLACK RACES 54 (>60)
[2017-07-12] MEDS: BACTRIM DS TAB PO SCH ×2 (08:28→20:06)
[2017-07-12] MEDS: CARAFATE PO SCH ×2 (08:28→20:06)
[2017-07-12] MEDS: PROTONIX TAB 40 MG PO SCH ×2 (08:28→20:07)
[2017-07-12] MEDS: NORVASC TAB 5 MG PO SCH (08:28)
[2017-07-12] MEDS: ZANTAC PO SCH ×2 (08:28→20:07)
[2017-07-12] MEDS: PERCOCET TAB 5/325 MG PO PRN ×2 (08:31→17:15)
[2017-07-12] MEDS: CYMBALTA PO SCH (10:09)
[2017-07-12] MEDS: GENTAMICIN TOPICAL CRM TOP SCH ×2 (10:10→20:07)
[2017-07-12] MEDS: DILAUDID INJ IVP PRN ×2 (13:18→20:08)
[2017-07-12] MEDS: BENADRYL CAP/TAB 25 MG PO PRN (15:27)
--- NOTE | 2017-07-12 19:58 | PCM.PROG ---
Progress Note - Progress Note for Day of Date: 07/08/16 - Subjective Subjective: WAS ADMITTED FOR CELLULITIS AND MULTIPLE WOUNDS ALL OVER HER BODY. TODAY, SHE IS ALERT AND ORIENTED, LYING IN BED ON MORNING ROUNDS. SHE CONTINUES WITH COMPLAINTS OF BILATERAL LEG PAIN. HER VITALS TODAY ARE 98.1-92-20 -98%-164/70. LABS WERE OBTAINED. AST 172, ALT 109, ALK PHOS 412, OTHERWISE, SHE REMAINS HEMODYNAMICALLY STABLE. WOUND CULTURES ARE PENDING. TOOK PATIENT DOWN FOR DEBRIDEMENT OF ULCER TO RIGHT FOOT YESTERDAY. HE CONSULTED FOR TREATMENT OF HAMMER TOE. SHE IS CURRENTLY RECEIVING BACTRIM DS AND MEROPENEM 1,000MG IV Q8H. WE WILL CONTINUE WITH CURRENT PLAN OF CARE TODAY. WE WILL FOLLOW UP WITH AM LABS AND CONTINUE TO MONITOR PATIENT. - Past Medical Family Social History Past Med/Fam/Surg Hx: No changes since H&P Allergies: Allergies aspirin Allergy (Verified 07/02/17 16:15) - Review of Systems ROS: No change since H&P - Vital Signs and I&O's Vital Signs: Temperature 97.6 F Pulse Rate [Left Brachial] 99 Respiratory Rate 18 Blood Pressure [Right Arm] 113/68 Blood Pressure [Left Arm] 101/60 Blood Pressure 174/93 O2 Sat by Pulse Oximetry 93 Intake and Output: Intake & Output 07/10/17 07/11/17 07/12/17 07/13/17 11:59 11:59 11:59 11:59 Intake Total 1860 1200 2040 1120 Output Total 2300 1005 2100 2000 Balance -440 195 -60 -880 - Physical Exam Oriented: Normal Eyes: Normal Ear: Normal Nose: Normal Throat: Normal Respiratory: Normal Cardiovascular: Normal : Normal Auscultation: Bowel Sounds: Normal Palpation: Normal Tenderness: Diffuse, Mild. 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 Ulceration seen over the dorsal aspect of the PIP. Underlying bone exposed. Ulceration about 2 cm in diameter. Clean edges seen due to the recent debridement. Ulceration also seen on the dorsal aspect of the IP joint of the great toe. The deformity seems to be significant for the 2nd one causing ulceration. The former is also seen in the lesser toes but not as significant as the 2nd one. Deformity is correctable. No significant contractures noted.) Psychiatric: Normal Mood Description: Calm Affect: Normal Speech Pattern: Clear, Appropriate - Laboratory and Diagnostics Result Diagrams: 07/12/17 05:31 07/12/17 05:31 Labs: 07/07/17 09:45 Drainage Gram Stain - Final 07/07/17 09:45 Drainage Wound Culture - Final Methicillin Resis Staph Aureus Strep Agalactiae - (Group B) 07/07/17 00:39 Stool Stool Culture - Final 07/07/17 00:39 Stool - Final 07/02/17 16:13 Blood Blood Culture - Final 07/02/17 15:53 Blood Blood Culture - Final Laboratory WBC 7.9 X10^3/uL (3.6-10.0) 07/12/17 05:31 RBC 3.98 X10^6/uL (3.5-5.4) 07/12/17 05:31 Hgb 10.4 g/dL (12.0-16.0) L 07/12/17 05:31 Hct 30.9 % (36.0-47.0) L 07/12/17 05:31 MCV 77.4 fL (80.0-100.0) L 07/12/17 05:31 MCH 26.2 pg (27.0-34.0) L 07/12/17 05:31 MCHC 33.8 g/dL (33.0-35.0) 07/12/17 05:31 RDW 15.8 % (11.6-16.5) 07/12/17 05:31 Plt Count 216 X10^3/uL (150.0-450.0) 07/12/17 05:31 Plt Count Comment Adequate (ADEQUATE) 07/06/17 04:55 MPV 9.7 fL (7.4-11.0) 07/12/17 05:31 Neut % (Auto) 47.0 % (42.0-75.0) 07/12/17 05:31 Lymph % (Auto) 44.8 % (21.0-51.0) 07/12/17 05:31 [place] % (Auto) 6.9 % (0.0-13.0) 07/12/17 05:31 Eos % (Auto) 0.9 % (0.9-2.9) 07/12/17 05:31 Baso % (Auto) 0.4 % (0.2-1.0) 07/12/17 05:31 Neut # (Auto) 3.7 x10^3/uL (2.2-4.8) 07/12/17 05:31 Lymph # (Auto) 3.5 X10^3/uL (1.3-2.9) H 07/12/17 05:31 [place] # (Auto) 0.5 x10^3/uL (0.3-0.8) 07/12/17 05:31 Eos # (Auto) 0.1 x10^3/uL (0.0-0.2) 07/12/17 05:31 Baso # (Auto) 0.0 X10^3/uL (0.0-0.1) 07/12/17 05:31 Absolute Nucleated RBC 0.0 /100WBC 07/12/17 05:31 Plt Morphology Comment Normal (NORMAL) 07/06/17 04:55 RBC Morphology Normal (NORMAL) 07/06/17 04:55 Sodium 135 mmol/L (136-145) L 07/12/17 05:31 Corrected Sodium 137 mmol/L (136-145) 07/12/17 05:31 Potassium 4.7 mmol/L (3.5-5.1) 07/12/17 05:31 Chloride 101 mmol/L (98-107) 07/12/17 05:31 Carbon Dioxide 27.0 mmol/L (21-32) 07/12/17 05:31 BUN 9 mg/dL (7-18) 07/12/17 05:31 Creatinine 1.13 mg/dL (0.55-1.02) H 07/12/17 05:31 Est GFR (MDRD) Af Amer > 60 (>60) 07/12/17 05:31 Est GFR (MDRD) Non-Af 54 (>60) L 07/12/17 05:31 Glucose 184 mg/dL (65-99) H 07/12/17 05:31 POC Glucose (mg/dL) 180 mg/dL (65-99) H 07/12/17 16:01 Hemoglobin A1c 14.7 % 07/05/17 05:49 Calcium 7.7 mg/dL (8.5-10.1) L 07/12/17 05:31 Corrected Calcium 9.3 mg/dL (8.5-10.1) 07/12/17 05:31 Total Bilirubin 0.80 mg/dL (0.2-1.0) 07/12/17 05:31 AST 101 Units/L (15-37) H 07/12/17 05:31 ALT 87 Units/L (12-78) H 07/12/17 05:31 Alkaline Phosphatase 427 Units/L (46-116) H 07/12/17 05:31 Total Protein 7.9 g/dL (6.4-8.2) 07/12/17 05:31 Albumin 2.0 g/dL (3.4-5.0) L 07/12/17 05:31 Globulin 5.9 g/dL (2.5-4.5) H 07/12/17 05:31 Albumin/Globulin Ratio 0.3 Ratio (1.1-2.1) L 07/12/17 05:31 Amylase 39 Units/L (25-115) 07/11/17 19:40 Lipase 78 Units/L (73-393) 07/11/17 19:40 Stool Description 30 g. brown/liquid 07/07/17 00:39 Stl Occult Blood (IFOB) Negative (NEGATIVE) 07/07/17 00:39 Stool for White Cells Positive (NEGATIVE) A 07/07/17 00:39 Stl C. diff Tox B Gene Negative (NEGATIVE) 07/07/17 00:39 Stl C. diff 027-NAP1-BI Negative (NEGATIVE) 07/07/17 00:39 Cryptosporid parvum Ag Negative (NEGATIVE) 07/07/17 00:39 E. histolytica Antigen Negative (NEGATIVE) 07/07/17 00:39 Giardia lamblia Ag Negative (NEGATIVE) 07/07/17 00:39 Hepatitis A IgM Ab Negative (Negative) 07/07/17 06:11 Hep Bs Antigen Negative (Negative) 07/07/17 06:11 Hep Bs Ag Confirmation TNP 07/07/17 06:11 Hep B Core IgM Ab Negative (Negative) 07/07/17 06:11 Hepatitis C Ab Index 0.06 IV 07/07/17 06:11 Hepatitis C Interp Negative (Negative) 07/07/17 06:11 Hepatitis Interpret See note 07/07/17 06:11 Tissue Pathology To follow 07/07/17 09:45
--- NOTE | 2017-07-12 19:58 | PCM.PROG ---
Progress Note - Progress Note for Day of Date: 07/09/17 - Subjective Subjective: IS BEING TREATED FOR CELLULITIS AND MULTIPLE WOUNDS ALL OVER HER BODY. SHE IS STATUS POST DEBRIDEMENT OF ULCER TO RIGHT FOOT TOES AND IS AWAITING A SURGICAL CONSULT WITH FOR TREATMENT OF HAMMER TOE. TODAY, SHE IS ALERT AND ORIENTED, LYING IN BED ON MORNING ROUNDS. SHE CONTINUES WITH COMPLAINTS OF BILATERAL LEG PAIN. DRESSING TO RIGHT FOOT IS NOTED TO BE DRY AND INTACT. HER VITALS TODAY ARE 98.5-103-20-98%-126/76. LABS WERE OBTAINED. SHE REMAINS HEMODYNAMICALLY STABLE TODAY. WOUND CULTURES ARE PENDING. SHE IS CURRENTLY RECEIVING BACTRIM DS AND MEROPENEM 1,000MG IV Q8H. WE WILL CONTINUE WITH CURRENT PLAN OF CARE TODAY. WE WILL FOLLOW UP WITH AM LABS AND CONTINUE TO MONITOR PATIENT. - Past Medical Family Social History Past Med/Fam/Surg Hx: No changes since H&P Allergies: Allergies aspirin Allergy (Verified 07/02/17 16:15) - Review of Systems ROS: No change since H&P - Vital Signs and I&O's Vital Signs: Temperature 97.6 F Pulse Rate [Left Brachial] 99 Respiratory Rate 18 Blood Pressure [Right Arm] 113/68 Blood Pressure [Left Arm] 101/60 Blood Pressure 174/93 O2 Sat by Pulse Oximetry 93 Intake and Output: Intake & Output 07/10/17 07/11/17 07/12/17 07/13/17 11:59 11:59 11:59 11:59 Intake Total 1860 1200 2040 1120 Output Total 2300 1005 2100 2000 Balance -440 195 -60 -880 - Physical Exam Oriented: Normal Eyes: Normal Ear: Normal Nose: Normal Throat: Normal Respiratory: Normal Cardiovascular: Normal : Normal Auscultation: Bowel Sounds: Normal Palpation: Normal Tenderness: Diffuse, Mild. 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 Ulceration seen over the dorsal aspect of the PIP. Underlying bone exposed. Ulceration about 2 cm in diameter. Clean edges seen due to the recent debridement. Ulceration also seen on the dorsal aspect of the IP joint of the great toe. The deformity seems to be significant for the 2nd one causing ulceration. The former is also seen in the lesser toes but not as significant as the 2nd one. Deformity is correctable. No significant contractures noted.) Psychiatric: Normal Mood Description: Calm Affect: Normal Speech Pattern: Clear, Appropriate - Laboratory and Diagnostics Result Diagrams: 07/12/17 05:31 07/12/17 05:31 Labs: 07/07/17 09:45 Drainage Gram Stain - Final 07/07/17 09:45 Drainage Wound Culture - Final Methicillin Resis Staph Aureus Strep Agalactiae - (Group B) 07/07/17 00:39 Stool Stool Culture - Final 07/07/17 00:39 Stool - Final 07/02/17 16:13 Blood Blood Culture - Final 07/02/17 15:53 Blood Blood Culture - Final Laboratory WBC 7.9 X10^3/uL (3.6-10.0) 07/12/17 05:31 RBC 3.98 X10^6/uL (3.5-5.4) 07/12/17 05:31 Hgb 10.4 g/dL (12.0-16.0) L 07/12/17 05:31 Hct 30.9 % (36.0-47.0) L 07/12/17 05:31 MCV 77.4 fL (80.0-100.0) L 07/12/17 05:31 MCH 26.2 pg (27.0-34.0) L 07/12/17 05:31 MCHC 33.8 g/dL (33.0-35.0) 07/12/17 05:31 RDW 15.8 % (11.6-16.5) 07/12/17 05:31 Plt Count 216 X10^3/uL (150.0-450.0) 07/12/17 05:31 Plt Count Comment Adequate (ADEQUATE) 07/06/17 04:55 MPV 9.7 fL (7.4-11.0) 07/12/17 05:31 Neut % (Auto) 47.0 % (42.0-75.0) 07/12/17 05:31 Lymph % (Auto) 44.8 % (21.0-51.0) 07/12/17 05:31 [place] % (Auto) 6.9 % (0.0-13.0) 07/12/17 05:31 Eos % (Auto) 0.9 % (0.9-2.9) 07/12/17 05:31 Baso % (Auto) 0.4 % (0.2-1.0) 07/12/17 05:31 Neut # (Auto) 3.7 x10^3/uL (2.2-4.8) 07/12/17 05:31 Lymph # (Auto) 3.5 X10^3/uL (1.3-2.9) H 07/12/17 05:31 [place] # (Auto) 0.5 x10^3/uL (0.3-0.8) 07/12/17 05:31 Eos # (Auto) 0.1 x10^3/uL (0.0-0.2) 07/12/17 05:31 Baso # (Auto) 0.0 X10^3/uL (0.0-0.1) 07/12/17 05:31 Absolute Nucleated RBC 0.0 /100WBC 07/12/17 05:31 Plt Morphology Comment Normal (NORMAL) 07/06/17 04:55 RBC Morphology Normal (NORMAL) 07/06/17 04:55 Sodium 135 mmol/L (136-145) L 07/12/17 05:31 Corrected Sodium 137 mmol/L (136-145) 07/12/17 05:31 Potassium 4.7 mmol/L (3.5-5.1) 07/12/17 05:31 Chloride 101 mmol/L (98-107) 07/12/17 05:31 Carbon Dioxide 27.0 mmol/L (21-32) 07/12/17 05:31 BUN 9 mg/dL (7-18) 07/12/17 05:31 Creatinine 1.13 mg/dL (0.55-1.02) H 07/12/17 05:31 Est GFR (MDRD) Af Amer > 60 (>60) 07/12/17 05:31 Est GFR (MDRD) Non-Af 54 (>60) L 07/12/17 05:31 Glucose 184 mg/dL (65-99) H 07/12/17 05:31 POC Glucose (mg/dL) 180 mg/dL (65-99) H 07/12/17 16:01 Hemoglobin A1c 14.7 % 07/05/17 05:49 Calcium 7.7 mg/dL (8.5-10.1) L 07/12/17 05:31 Corrected Calcium 9.3 mg/dL (8.5-10.1) 07/12/17 05:31 Total Bilirubin 0.80 mg/dL (0.2-1.0) 07/12/17 05:31 AST 101 Units/L (15-37) H 07/12/17 05:31 ALT 87 Units/L (12-78) H 07/12/17 05:31 Alkaline Phosphatase 427 Units/L (46-116) H 07/12/17 05:31 Total Protein 7.9 g/dL (6.4-8.2) 07/12/17 05:31 Albumin 2.0 g/dL (3.4-5.0) L 07/12/17 05:31 Globulin 5.9 g/dL (2.5-4.5) H 07/12/17 05:31 Albumin/Globulin Ratio 0.3 Ratio (1.1-2.1) L 07/12/17 05:31 Amylase 39 Units/L (25-115) 07/11/17 19:40 Lipase 78 Units/L (73-393) 07/11/17 19:40 Stool Description 30 g. brown/liquid 07/07/17 00:39 Stl Occult Blood (IFOB) Negative (NEGATIVE) 07/07/17 00:39 Stool for White Cells Positive (NEGATIVE) A 07/07/17 00:39 Stl C. diff Tox B Gene Negative (NEGATIVE) 07/07/17 00:39 Stl C. diff 027-NAP1-BI Negative (NEGATIVE) 07/07/17 00:39 Cryptosporid parvum Ag Negative (NEGATIVE) 07/07/17 00:39 E. histolytica Antigen Negative (NEGATIVE) 07/07/17 00:39 Giardia lamblia Ag Negative (NEGATIVE) 07/07/17 00:39 Hepatitis A IgM Ab Negative (Negative) 07/07/17 06:11 Hep Bs Antigen Negative (Negative) 07/07/17 06:11 Hep Bs Ag Confirmation TNP 07/07/17 06:11 Hep B Core IgM Ab Negative (Negative) 07/07/17 06:11 Hepatitis C Ab Index 0.06 IV 07/07/17 06:11 Hepatitis C Interp Negative (Negative) 07/07/17 06:11 Hepatitis Interpret See note 07/07/17 06:11 Tissue Pathology To follow 07/07/17 09:45
[2017-07-12] MEDS: SNACK - Diabetic Appropriate PO SCH (20:05)
[2017-07-12] MEDS: ELAVIL PO SCH (20:06)
[2017-07-12] MEDS: SINGULAIR TAB 10 MG PO SCH (20:07)
--- NOTE | 2017-07-12 22:14 | PCM.PROG ---
Progress Note - Progress Note for Day of Date: 07/10/17 - Subjective Subjective: IS BEING TREATED FOR CELLULITIS AND MULTIPLE WOUNDS ALL OVER HER BODY. SHE IS STATUS POST DEBRIDEMENT OF ULCER TO RIGHT FOOT TOES. TODAY , SHE IS ALERT AND ORIENTED, LYING IN BED ON MORNING ROUNDS. SHE CONTINUES WITH COMPLAINTS OF BILATERAL LEG PAIN. DRESSING TO RIGHT FOOT IS NOTED TO BE DRY AND INTACT. HER VITALS TODAY ARE 97.9-97-20-96%-100/63. LABS WERE OBTAINED. AST 145 , ALT 111, ALK POS 496. OTHERWISE, SHE REMAINS HEMODYNAMICALLY STABLE TODAY. HEPATITIS PANEL IS PENDING. WOUND CULTURES OF RIGHT FOOT REPORT GROWHT OF MRSA. SHE IS CURRENTLY RECEIVING BACTRIM DS AND MEROPENEM 1,000MG IV Q8H. WE WILL CONTINUE WITH CURRENT PLAN OF CARE TODAY. PLANS TO TAKE PATIENT TO THE OR TODAY FOR REPAIR OF RIGHT FOOT HAMMER TOE. WE WILL FOLLOW UP WITH AM LABS AND CONTINUE TO MONITOR PATIENT. - Past Medical Family Social History Past Med/Fam/Surg Hx: No changes since H&P Allergies: Allergies aspirin Allergy (Verified 07/02/17 16:15) - Review of Systems ROS: No change since H&P - Vital Signs and I&O's Vital Signs: Temperature 97.5 F Pulse Rate [Left Brachial] 98 Respiratory Rate 18 Blood Pressure [Right Arm] 113/68 Blood Pressure [Left Arm] 119/73 Blood Pressure 174/93 O2 Sat by Pulse Oximetry 95 Intake and Output: Intake & Output 07/10/17 07/11/17 07/12/17 07/13/17 11:59 11:59 11:59 11:59 Intake Total 1860 1200 2040 1120 Output Total 2300 1005 2100 2000 Balance -440 195 -60 -880 - Physical Exam Oriented: Normal Eyes: Normal Ear: Normal Nose: Normal Throat: Normal Respiratory: Normal Cardiovascular: Normal : Normal Auscultation: Bowel Sounds: Normal Palpation: Normal Tenderness: Diffuse, Mild. 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 Ulceration seen over the dorsal aspect of the PIP. Underlying bone exposed. Ulceration about 2 cm in diameter. Clean edges seen due to the recent debridement. Ulceration also seen on the dorsal aspect of the IP joint of the great toe. The deformity seems to be significant for the 2nd one causing ulceration. The former is also seen in the lesser toes but not as significant as the 2nd one. Deformity is correctable. No significant contractures noted.) Psychiatric: Normal Mood Description: Calm Affect: Normal Speech Pattern: Clear, Appropriate - Laboratory and Diagnostics Result Diagrams: 07/12/17 05:31 07/12/17 05:31 Labs: 07/07/17 09:45 Drainage Gram Stain - Final 07/07/17 09:45 Drainage Wound Culture - Final Methicillin Resis Staph Aureus Strep Agalactiae - (Group B) 07/07/17 00:39 Stool Stool Culture - Final 07/07/17 00:39 Stool - Final 07/02/17 16:13 Blood Blood Culture - Final 07/02/17 15:53 Blood Blood Culture - Final Laboratory WBC 7.9 X10^3/uL (3.6-10.0) 07/12/17 05:31 RBC 3.98 X10^6/uL (3.5-5.4) 07/12/17 05:31 Hgb 10.4 g/dL (12.0-16.0) L 07/12/17 05:31 Hct 30.9 % (36.0-47.0) L 07/12/17 05:31 MCV 77.4 fL (80.0-100.0) L 07/12/17 05:31 MCH 26.2 pg (27.0-34.0) L 07/12/17 05:31 MCHC 33.8 g/dL (33.0-35.0) 07/12/17 05:31 RDW 15.8 % (11.6-16.5) 07/12/17 05:31 Plt Count 216 X10^3/uL (150.0-450.0) 07/12/17 05:31 Plt Count Comment Adequate (ADEQUATE) 07/06/17 04:55 MPV 9.7 fL (7.4-11.0) 07/12/17 05:31 Neut % (Auto) 47.0 % (42.0-75.0) 07/12/17 05:31 Lymph % (Auto) 44.8 % (21.0-51.0) 07/12/17 05:31 [place] % (Auto) 6.9 % (0.0-13.0) 07/12/17 05:31 Eos % (Auto) 0.9 % (0.9-2.9) 07/12/17 05:31 Baso % (Auto) 0.4 % (0.2-1.0) 07/12/17 05:31 Neut # (Auto) 3.7 x10^3/uL (2.2-4.8) 07/12/17 05:31 Lymph # (Auto) 3.5 X10^3/uL (1.3-2.9) H 07/12/17 05:31 [place] # (Auto) 0.5 x10^3/uL (0.3-0.8) 07/12/17 05:31 Eos # (Auto) 0.1 x10^3/uL (0.0-0.2) 07/12/17 05:31 Baso # (Auto) 0.0 X10^3/uL (0.0-0.1) 07/12/17 05:31 Absolute Nucleated RBC 0.0 /100WBC 07/12/17 05:31 Plt Morphology Comment Normal (NORMAL) 07/06/17 04:55 RBC Morphology Normal (NORMAL) 07/06/17 04:55 Sodium 135 mmol/L (136-145) L 07/12/17 05:31 Corrected Sodium 137 mmol/L (136-145) 07/12/17 05:31 Potassium 4.7 mmol/L (3.5-5.1) 07/12/17 05:31 Chloride 101 mmol/L (98-107) 07/12/17 05:31 Carbon Dioxide 27.0 mmol/L (21-32) 07/12/17 05:31 BUN 9 mg/dL (7-18) 07/12/17 05:31 Creatinine 1.13 mg/dL (0.55-1.02) H 07/12/17 05:31 Est GFR (MDRD) Af Amer > 60 (>60) 07/12/17 05:31 Est GFR (MDRD) Non-Af 54 (>60) L 07/12/17 05:31 Glucose 184 mg/dL (65-99) H 07/12/17 05:31 POC Glucose (mg/dL) 156 mg/dL (65-99) H 07/12/17 20:09 Hemoglobin A1c 14.7 % 07/05/17 05:49 Calcium 7.7 mg/dL (8.5-10.1) L 07/12/17 05:31 Corrected Calcium 9.3 mg/dL (8.5-10.1) 07/12/17 05:31 Total Bilirubin 0.80 mg/dL (0.2-1.0) 07/12/17 05:31 AST 101 Units/L (15-37) H 07/12/17 05:31 ALT 87 Units/L (12-78) H 07/12/17 05:31 Alkaline Phosphatase 427 Units/L (46-116) H 07/12/17 05:31 Total Protein 7.9 g/dL (6.4-8.2) 07/12/17 05:31 Albumin 2.0 g/dL (3.4-5.0) L 07/12/17 05:31 Globulin 5.9 g/dL (2.5-4.5) H 07/12/17 05:31 Albumin/Globulin Ratio 0.3 Ratio (1.1-2.1) L 07/12/17 05:31 Amylase 39 Units/L (25-115) 07/11/17 19:40 Lipase 78 Units/L (73-393) 07/11/17 19:40 Stool Description 30 g. brown/liquid 07/07/17 00:39 Stl Occult Blood (IFOB) Negative (NEGATIVE) 07/07/17 00:39 Stool for White Cells Positive (NEGATIVE) A 07/07/17 00:39 Stl C. diff Tox B Gene Negative (NEGATIVE) 07/07/17 00:39 Stl C. diff 027-NAP1-BI Negative (NEGATIVE) 07/07/17 00:39 Cryptosporid parvum Ag Negative (NEGATIVE) 07/07/17 00:39 E. histolytica Antigen Negative (NEGATIVE) 07/07/17 00:39 Giardia lamblia Ag Negative (NEGATIVE) 07/07/17 00:39 Hepatitis A IgM Ab Negative (Negative) 07/07/17 06:11 Hep Bs Antigen Negative (Negative) 07/07/17 06:11 Hep Bs Ag Confirmation TNP 07/07/17 06:11 Hep B Core IgM Ab Negative (Negative) 07/07/17 06:11 Hepatitis C Ab Index 0.06 IV 07/07/17 06:11 Hepatitis C Interp Negative (Negative) 07/07/17 06:11 Hepatitis Interpret See note 07/07/17 06:11 Tissue Pathology To follow 07/07/17 09:45
[2017-07-12] MEDS: VISTARIL PO PRN (22:18)
[2017-07-13] MEDS: NS 1000 ML 1,000 ML IV SCH ×2 (01:32→12:40)
[2017-07-13] MEDS: PERCOCET TAB 5/325 MG PO PRN ×3 (01:33→16:01)
[2017-07-13] MEDS ORDERED: GLUCOPHAGE ONE ×2 (05:31→15:52)
[2017-07-13] MEDS: MERREM VIAL 1,000 MG in NS 100 ML IV 100 ML IV SCH ×3 (05:46→21:00)
[2017-07-13] MEDS: NEURONTIN TAB 600 MG PO SCH ×3 (05:46→21:00)
[2017-07-13] MEDS: DILAUDID INJ IVP PRN ×3 (05:47→20:50)
[2017-07-13] MEDS: HumuLIN R SUBCUT PRN ×5 (06:03→21:37)
[2017-07-13 06:18] LABS: BASOPHILS % (AUTO) 0.6 % (0.2-1.0); EOSINOPHILS # (AUTO) 0.1 x10^3/uL (0.0-0.2); EOSINOPHILS % (AUTO) 1.1 % (0.9-2.9); HEMATOCRIT 30.6 % (36.0-47.0); HEMOGLOBIN 10.5 g/dL (12.0-16.0); LYMPHOCYTES # (AUTO) 3.1 X10^3/uL (1.3-2.9); LYMPHOCYTES % (AUTO) 43.2 % (21.0-51.0); MEAN CORPUSCULAR HEMOGLOBIN 26.7 pg (27.0-34.0); MEAN CORPUSCULAR HGB CONC 34.2 g/dL (33.0-35.0); MEAN CORPUSCULAR VOLUME 77.9 fL (80.0-100.0); MEAN PLATELET VOLUME 9.7 fL (7.4-11.0); MONOCYTES # (AUTO) 0.5 x10^3/uL (0.3-0.8); MONOCYTES % (AUTO) 7.6 % (0.0-13.0); NEUTROPHILS # (AUTO) 3.4 x10^3/uL (2.2-4.8); NEUTROPHILS % (AUTO) 47.5 % (42.0-75.0); PLATELET COUNT 196 X10^3/uL (150.0-450.0); RED BLOOD COUNT 3.92 X10^6/uL (3.5-5.4); RED CELL DISTRIBUTION WIDTH 16.4 % (11.6-16.5); WHITE BLOOD COUNT 7.1 X10^3/uL (3.6-10.0)
[2017-07-13] MEDS: GLUCOPHAGE PO SCH ×2 (06:31→16:01)
[2017-07-13 06:34] LABS: ALANINE AMINOTRANSFERASE 84 Units/L (12-78); ALBUMIN 2.1 g/dL (3.4-5.0); ALKALINE PHOSPHATASE 444 Units/L (46-116); ASPARTATE AMINO TRANSFERASE 97 Units/L (15-37); BLOOD UREA NITROGEN 11 mg/dL (7-18); CALCIUM 7.8 mg/dL (8.5-10.1); CARBON DIOXIDE 25.2 mmol/L (21-32); CHLORIDE 99 mmol/L (98-107); COR CA(FOR HYPOALB) 9.3 mg/dL (8.5-10.1); COR NA(FOR HYPERGLY) 135 mmol/L (136-145); CREATININE 0.96 mg/dL (0.55-1.02); SODIUM 132 mmol/L (136-145); TOTAL PROTEIN 8.3 g/dL (6.4-8.2); eGFR BLACK RACES > 60 (>60); eGFR NON BLACK RACES > 60 (>60)
[2017-07-13] MEDS: BACTRIM DS TAB PO SCH ×2 (08:09→20:49)
[2017-07-13] MEDS: CYMBALTA PO SCH (08:09)
[2017-07-13] MEDS: CARAFATE PO SCH ×2 (08:09→20:50)
[2017-07-13] MEDS: ZANTAC PO SCH ×2 (08:10→20:50)
[2017-07-13] MEDS: BENADRYL CAP/TAB 25 MG PO PRN (08:10)
[2017-07-13] MEDS: NORVASC TAB 5 MG PO SCH (08:10)
[2017-07-13] MEDS: PROTONIX TAB 40 MG PO SCH ×2 (08:10→20:48)
[2017-07-13] MEDS: GENTAMICIN TOPICAL CRM TOP SCH ×2 (08:10→20:51)
--- NOTE | 2017-07-13 08:13 | DR.PROGNOT ---
Hospital Progress Notes - Progress Note for Day of: Progress Note Date: 07/13/17 - Chief Complaint Chief Complaint: PO debridement of Rt 1st 2ed toes . had correction of hammer toe done by Dr Rolle. stable , no significant pain , no drainage but culture showed MRSA. - Past Medical Family Social History Past Med/Fam/Surg Hx: No changes since H&P Allergies: Allergies aspirin Allergy (Verified 07/02/17 16:15) - Review Of Systems ROS: No change since H&P - Vital Signs Vital Signs: Temperature 98.5 F Pulse Rate [Left Brachial] 89 Respiratory Rate 20 Blood Pressure [Right Arm] 103/43 Blood Pressure [Left Arm] 118/80 Blood Pressure 174/93 O2 Sat by Pulse Oximetry 95 - Physical Exam Oriented: Normal Eyes: Normal Ear: Normal Nose: Normal Throat: Normal Respiratory: Normal Cardiovascular: Normal : Normal GI:Auscultation: Normal GI:Palpation: Normal GI: Tenderness: Diffuse, Mild. negative: Rebound, Guarding, Rigidity Skin: Wound (dressing is intact , ) Musculoskeletal: Right, Foot, Tender Psychiatric: Normal Mood Description: Calm Affect: Normal Speech Pattern: Clear, Appropriate - Laboratory and Diagnostics Result Diagrams: 07/13/17 05:20 07/13/17 05:20 Labs: 07/07/17 09:45 Drainage Gram Stain - Final 07/07/17 09:45 Drainage Wound Culture - Final Methicillin Resis Staph Aureus Strep Agalactiae - (Group B) 07/07/17 00:39 Stool Stool Culture - Final 07/07/17 00:39 Stool - Final 07/02/17 16:13 Blood Blood Culture - Final 07/02/17 15:53 Blood Blood Culture - Final Laboratory WBC 7.1 X10^3/uL (3.6-10.0) 07/13/17 05:20 RBC 3.92 X10^6/uL (3.5-5.4) 07/13/17 05:20 Hgb 10.5 g/dL (12.0-16.0) L 07/13/17 05:20 Hct 30.6 % (36.0-47.0) L 07/13/17 05:20 MCV 77.9 fL (80.0-100.0) L 07/13/17 05:20 MCH 26.7 pg (27.0-34.0) L 07/13/17 05:20 MCHC 34.2 g/dL (33.0-35.0) 07/13/17 05:20 RDW 16.4 % (11.6-16.5) 07/13/17 05:20 Plt Count 196 X10^3/uL (150.0-450.0) 07/13/17 05:20 Plt Count Comment Adequate (ADEQUATE) 07/06/17 04:55 MPV 9.7 fL (7.4-11.0) 07/13/17 05:20 Neut % (Auto) 47.5 % (42.0-75.0) 07/13/17 05:20 Lymph % (Auto) 43.2 % (21.0-51.0) 07/13/17 05:20 [place] % (Auto) 7.6 % (0.0-13.0) 07/13/17 05:20 Eos % (Auto) 1.1 % (0.9-2.9) 07/13/17 05:20 Baso % (Auto) 0.6 % (0.2-1.0) 07/13/17 05:20 Neut # (Auto) 3.4 x10^3/uL (2.2-4.8) 07/13/17 05:20 Lymph # (Auto) 3.1 X10^3/uL (1.3-2.9) H 07/13/17 05:20 [place] # (Auto) 0.5 x10^3/uL (0.3-0.8) 07/13/17 05:20 Eos # (Auto) 0.1 x10^3/uL (0.0-0.2) 07/13/17 05:20 Baso # (Auto) 0.0 X10^3/uL (0.0-0.1) 07/13/17 05:20 Absolute Nucleated RBC 0.2 /100WBC 07/13/17 05:20 Plt Morphology Comment Normal (NORMAL) 07/06/17 04:55 RBC Morphology Normal (NORMAL) 07/06/17 04:55 Sodium 132 mmol/L (136-145) L 07/13/17 05:20 Corrected Sodium 135 mmol/L (136-145) L 07/13/17 05:20 Potassium 5.2 mmol/L (3.5-5.1) H 07/13/17 05:20 Chloride 99 mmol/L (98-107) 07/13/17 05:20 Carbon Dioxide 25.2 mmol/L (21-32) 07/13/17 05:20 BUN 11 mg/dL (7-18) 07/13/17 05:20 Creatinine 0.96 mg/dL (0.55-1.02) 07/13/17 05:20 Est GFR (MDRD) Af Amer > 60 (>60) 07/13/17 05:20 Est GFR (MDRD) Non-Af > 60 (>60) 07/13/17 05:20 Glucose 234 mg/dL (65-99) H 07/13/17 05:20 POC Glucose (mg/dL) 224 mg/dL (65-99) H 07/13/17 05:58 Hemoglobin A1c 14.7 % 07/05/17 05:49 Calcium 7.8 mg/dL (8.5-10.1) L 07/13/17 05:20 Corrected Calcium 9.3 mg/dL (8.5-10.1) 07/13/17 05:20 Total Bilirubin 0.80 mg/dL (0.2-1.0) 07/13/17 05:20 AST 97 Units/L (15-37) H 07/13/17 05:20 ALT 84 Units/L (12-78) H 07/13/17 05:20 Alkaline Phosphatase 444 Units/L (46-116) H 07/13/17 05:20 Total Protein 8.3 g/dL (6.4-8.2) H 07/13/17 05:20 Albumin 2.1 g/dL (3.4-5.0) L 07/13/17 05:20 Globulin 6.2 g/dL (2.5-4.5) H 07/13/17 05:20 Albumin/Globulin Ratio 0.3 Ratio (1.1-2.1) L 07/13/17 05:20 Amylase 39 Units/L (25-115) 07/11/17 19:40 Lipase 78 Units/L (73-393) 07/11/17 19:40 Stool Description 30 g. brown/liquid 07/07/17 00:39 Stl Occult Blood (IFOB) Negative (NEGATIVE) 07/07/17 00:39 Stool for White Cells Positive (NEGATIVE) A 07/07/17 00:39 Stl C. diff Tox B Gene Negative (NEGATIVE) 07/07/17 00:39 Stl C. diff 027-NAP1-BI Negative (NEGATIVE) 07/07/17 00:39 Cryptosporid parvum Ag Negative (NEGATIVE) 07/07/17 00:39 E. histolytica Antigen Negative (NEGATIVE) 07/07/17 00:39 Giardia lamblia Ag Negative (NEGATIVE) 07/07/17 00:39 Hepatitis A IgM Ab Negative (Negative) 07/07/17 06:11 Hep Bs Antigen Negative (Negative) 07/07/17 06:11 Hep Bs Ag Confirmation TNP 07/07/17 06:11 Hep B Core IgM Ab Negative (Negative) 07/07/17 06:11 Hepatitis C Ab Index 0.06 IV 07/07/17 06:11 Hepatitis C Interp Negative (Negative) 07/07/17 06:11 Hepatitis Interpret See note 07/07/17 06:11 Tissue Pathology To follow 07/07/17 09:45 - Assessment and Plan 1: pressure ulcers with cellulitis Rt 1 ,2 toes positive for MRSA. hammer toe deformities corrected by Dr Rolle , on ATB and orthopedic follow up
[2017-07-13] MEDS: VISTARIL PO PRN ×2 (12:20→20:50)
--- NOTE | 2017-07-13 12:37 | DR.PROGNOT ---
Hospital Progress Notes - Progress Note for Day of: Progress Note Date: 07/13/17 - Chief Complaint Chief Complaint: pt afebrile, stable vitals. wound inspected today. clean, dry. minimal redness and swelling noted , expected post surgery. sterile dressing reapplied. - Past Medical Family Social History Past Med/Fam/Surg Hx: No changes since H&P Allergies: Allergies aspirin Allergy (Verified 07/02/17 16:15) - Review Of Systems ROS: No change since H&P - Vital Signs Vital Signs: Temperature 98.8 F Pulse Rate [Left Brachial] 67 Respiratory Rate 20 Blood Pressure [Right Arm] 126/63 Blood Pressure [Left Arm] 118/80 Blood Pressure 174/93 O2 Sat by Pulse Oximetry 98 - Physical Exam Oriented: Normal Eyes: Normal Ear: Normal Nose: Normal Throat: Normal Respiratory: Normal Cardiovascular: Normal : Normal GI:Auscultation: Normal GI:Palpation: Normal GI: Tenderness: Diffuse, Mild. negative: Rebound, Guarding, Rigidity Skin: Wound (dressing is intact , ) Musculoskeletal: Right, Foot, Tender Psychiatric: Normal Mood Description: Calm Affect: Normal Speech Pattern: Clear, Appropriate - Laboratory and Diagnostics Result Diagrams: 07/13/17 05:20 07/13/17 05:20 Labs: 07/07/17 09:45 Drainage Gram Stain - Final 07/07/17 09:45 Drainage Wound Culture - Final Methicillin Resis Staph Aureus Strep Agalactiae - (Group B) 07/07/17 00:39 Stool Stool Culture - Final 07/07/17 00:39 Stool - Final 07/02/17 16:13 Blood Blood Culture - Final 07/02/17 15:53 Blood Blood Culture - Final Laboratory WBC 7.1 X10^3/uL (3.6-10.0) 07/13/17 05:20 RBC 3.92 X10^6/uL (3.5-5.4) 07/13/17 05:20 Hgb 10.5 g/dL (12.0-16.0) L 07/13/17 05:20 Hct 30.6 % (36.0-47.0) L 07/13/17 05:20 MCV 77.9 fL (80.0-100.0) L 07/13/17 05:20 MCH 26.7 pg (27.0-34.0) L 07/13/17 05:20 MCHC 34.2 g/dL (33.0-35.0) 07/13/17 05:20 RDW 16.4 % (11.6-16.5) 07/13/17 05:20 Plt Count 196 X10^3/uL (150.0-450.0) 07/13/17 05:20 Plt Count Comment Adequate (ADEQUATE) 07/06/17 04:55 MPV 9.7 fL (7.4-11.0) 07/13/17 05:20 Neut % (Auto) 47.5 % (42.0-75.0) 07/13/17 05:20 Lymph % (Auto) 43.2 % (21.0-51.0) 07/13/17 05:20 [place] % (Auto) 7.6 % (0.0-13.0) 07/13/17 05:20 Eos % (Auto) 1.1 % (0.9-2.9) 07/13/17 05:20 Baso % (Auto) 0.6 % (0.2-1.0) 07/13/17 05:20 Neut # (Auto) 3.4 x10^3/uL (2.2-4.8) 07/13/17 05:20 Lymph # (Auto) 3.1 X10^3/uL (1.3-2.9) H 07/13/17 05:20 [place] # (Auto) 0.5 x10^3/uL (0.3-0.8) 07/13/17 05:20 Eos # (Auto) 0.1 x10^3/uL (0.0-0.2) 07/13/17 05:20 Baso # (Auto) 0.0 X10^3/uL (0.0-0.1) 07/13/17 05:20 Absolute Nucleated RBC 0.2 /100WBC 07/13/17 05:20 Plt Morphology Comment Normal (NORMAL) 07/06/17 04:55 RBC Morphology Normal (NORMAL) 07/06/17 04:55 Sodium 132 mmol/L (136-145) L 07/13/17 05:20 Corrected Sodium 135 mmol/L (136-145) L 07/13/17 05:20 Potassium 5.2 mmol/L (3.5-5.1) H 07/13/17 05:20 Chloride 99 mmol/L (98-107) 07/13/17 05:20 Carbon Dioxide 25.2 mmol/L (21-32) 07/13/17 05:20 BUN 11 mg/dL (7-18) 07/13/17 05:20 Creatinine 0.96 mg/dL (0.55-1.02) 07/13/17 05:20 Est GFR (MDRD) Af Amer > 60 (>60) 07/13/17 05:20 Est GFR (MDRD) Non-Af > 60 (>60) 07/13/17 05:20 Glucose 234 mg/dL (65-99) H 07/13/17 05:20 POC Glucose (mg/dL) 178 mg/dL (65-99) H 07/13/17 11:30 Hemoglobin A1c 14.7 % 07/05/17 05:49 Calcium 7.8 mg/dL (8.5-10.1) L 07/13/17 05:20 Corrected Calcium 9.3 mg/dL (8.5-10.1) 07/13/17 05:20 Total Bilirubin 0.80 mg/dL (0.2-1.0) 07/13/17 05:20 AST 97 Units/L (15-37) H 07/13/17 05:20 ALT 84 Units/L (12-78) H 07/13/17 05:20 Alkaline Phosphatase 444 Units/L (46-116) H 07/13/17 05:20 Total Protein 8.3 g/dL (6.4-8.2) H 07/13/17 05:20 Albumin 2.1 g/dL (3.4-5.0) L 07/13/17 05:20 Globulin 6.2 g/dL (2.5-4.5) H 07/13/17 05:20 Albumin/Globulin Ratio 0.3 Ratio (1.1-2.1) L 07/13/17 05:20 Amylase 39 Units/L (25-115) 07/11/17 19:40 Lipase 78 Units/L (73-393) 07/11/17 19:40 Stool Description 30 g. brown/liquid 07/07/17 00:39 Stl Occult Blood (IFOB) Negative (NEGATIVE) 07/07/17 00:39 Stool for White Cells Positive (NEGATIVE) A 07/07/17 00:39 Stl C. diff Tox B Gene Negative (NEGATIVE) 07/07/17 00:39 Stl C. diff 027-NAP1-BI Negative (NEGATIVE) 07/07/17 00:39 Cryptosporid parvum Ag Negative (NEGATIVE) 07/07/17 00:39 E. histolytica Antigen Negative (NEGATIVE) 07/07/17 00:39 Giardia lamblia Ag Negative (NEGATIVE) 07/07/17 00:39 Hepatitis A IgM Ab Negative (Negative) 07/07/17 06:11 Hep Bs Antigen Negative (Negative) 07/07/17 06:11 Hep Bs Ag Confirmation TNP 07/07/17 06:11 Hep B Core IgM Ab Negative (Negative) 07/07/17 06:11 Hepatitis C Ab Index 0.06 IV 07/07/17 06:11 Hepatitis C Interp Negative (Negative) 07/07/17 06:11 Hepatitis Interpret See note 07/07/17 06:11 Tissue Pathology To follow 07/07/17 09:45 - Assessment and Plan 1: continue regular dressing changes. every 3 days. follow up in office as advised. Weight bearing as tolerated. oral antibiotics.
[2017-07-13] MEDS ORDERED: NS 100 ML IV 100 ML IV ONE (13:32)
[2017-07-13] MEDS ORDERED: BENADRYL CAP/TAB 25 MG PO PRN (15:49)
[2017-07-13] MEDS: DIFLUCAN 200 MG IV PREMIX* 200 MG/100 ML BAG IV SCH (16:46)
--- NOTE | 2017-07-13 16:55 | OR.GENERIC ---
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 Patient having issues with multiple falls. Currently using a cane. Had an ongoing problem with deformity of both feet. A month ago noticed an ulcer on the RIGHT great toe as well as the 2nd toe. Was deployed it recently. I was consulted for the foot deformity. Patient had a claw toe deformity. Had an ulceration about a centimeter and half on the PIP of the 2nd toe. Also had a similar ulceration which seems to be healing on the great toe. Patient had adequate dorsalis pedis pulsation. The options were discussed with the patient. Patient will return to proceed with an claw toe deformity correction. The risks and benefits were discussed with her. Discussed amputation/osteoporosis, need for further procedures, persistence of pain was discussed with her. She understood and will let same. The need for prolonged IV antibiotics was also discussed with her. Procedure-. Patient was seen in the preoperative holding area. Correct limb and the part was marked. 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 She cannot appropriate antibiotics. She got the regional block. Patient was brought to the operating room and placed supine on the table. No tourniquet was used for the procedure. Patient was put under light IV sedation. The RIGHT leg was prepped and draped. The 2nd toe had an ulcer which was about a centimeter and a half times centimeter and a half. The base was an extensor tendon. The deformity was correctable. The edges of 4 and the ulcer where divided. It was turned and twisted her to elliptical defect. The proximal and distal extension of the defect was made. This turned into a cruciform incision. The extensor tendon was split in the middle. no pus or abscess was noted.The capsule of the PIP joint was exposed. Capsulotomy was done. no collection intra-articular was noted. Using the knife the collaterals were released off the bone both proximally and distally. The neurovascular bundles were protected and throughout the procedure. The distal part of the articular surface of the proximal phalanx was removed with an oscillating saw. The same was done to the proximal articular surface of the middle phalanx. Thorough irrigation was done. A K wire was passed through the middle phalanx exiting at the tip. K wire was withdrawn to the tip was a visible at the middle phalanx. The IP joint was reduced and was held in place well compressed. K wire was driven into the proximal phalanx and into the metatarsal. This was checked in images with the C-arm. The K wire was bent and cut. Thorough irrigation of the wound was done. Wound was closed in layers. Off note no tourniquet was used and there was good vascularity at the site. Skin was closed in layers. Sterile dressing was applied. Xeroform was placed around the K wire. Patient was placed in his boot. Patient was shifted to the PACU in a stable condition.we will keep an eye on the condition of the wound as well as the vascularity postsurgery. Patient was stripped to the PACU in stable condition. Postoperative instructions were given. Family was updated.
--- NOTE | 2017-07-13 18:10 | PCM.PROG ---
Progress Note - Progress Note for Day of Date: 07/11/17 - Subjective Subjective: IS BEING TREATED FOR CELLULITIS AND MULTIPLE WOUNDS ALL OVER HER BODY. SHE IS STATUS POST DEBRIDEMENT OF ULCER TO RIGHT FOOT TOES AND REPAIR OF HAMMER TOE. TODAY, SHE IS ALERT AND ORIENTED, LYING IN BED ON MORNING ROUNDS. TODAY, SHE IS NOTED WITH COMPLAINTS OF DIFFUSE ABDOMINAL PAIN AND ALSO CONTINUES WITH RIGHT FOOT PAIN. DRESSING TO RIGHT FOOT IS NOTED TO BE DRY AND INTACT. HER VITALS TODAY ARE 97.0-98-20-98%-122/69. LABS WERE OBTAINED. ABNORMAL LAB VALUES INCLUDE THE FOLLOWING: HGB 11.0, HCT 32.4, SODIUM 133, POTASSIUM 5.2, GLUCOSE 227, CALCIUM 7.6, AST 121, ALT 96, ALK PHOS 439, ALBUMIN 2.0, GLOBULIN 6.0. SHE IS CURRENTLY RECEIVING BACTRIM DS AND MEROPENEM 1,000MG IV Q8H FOR INFECTION IN MULTIPLE WOUNDS. TODAY, WE WILL OBTAIN AN ABD/PELVIS CT WITH CONTRAST. OTHERWISE, WE WILL CONTINUE WITH CURRENT PLAN OF CARE TODAY. WE WILL FOLLOW UP WITH AM LABS AND CONTINUE TO MONITOR PATIENT. - Past Medical Family Social History Past Med/Fam/Surg Hx: No changes since H&P Allergies: Allergies aspirin Allergy (Verified 07/02/17 16:15) - Review of Systems ROS: No change since H&P - Vital Signs and I&O's Vital Signs: Temperature 98.2 F Pulse Rate [Left Brachial] 96 Respiratory Rate 18 Blood Pressure [Right Arm] 146/65 Blood Pressure [Left Arm] 118/80 Blood Pressure 174/93 O2 Sat by Pulse Oximetry 96 Intake and Output: Intake & Output 07/11/17 07/12/17 07/13/17 07/14/17 11:59 11:59 11:59 11:59 Intake Total 1200 2040 2488 1000 Output Total 1005 2100 2000 0 Balance 195 -60 488 1000 - Physical Exam Oriented: Normal Eyes: Normal Ear: Normal Nose: Normal Throat: Normal Respiratory: Normal Cardiovascular: Normal : Normal Auscultation: Bowel Sounds: Normal Palpation: Normal Tenderness: Diffuse, Mild. negative: Rebound, Guarding, Rigidity Skin: Wound (dressing is intact , ) Musculoskeletal: Right, Foot, Tender Psychiatric: Normal Mood Description: Calm Affect: Normal Speech Pattern: Clear, Appropriate - Laboratory and Diagnostics Result Diagrams: 07/13/17 05:20 07/13/17 05:20 Labs: 07/07/17 09:45 Drainage Gram Stain - Final 07/07/17 09:45 Drainage Wound Culture - Final Methicillin Resis Staph Aureus Strep Agalactiae - (Group B) 07/07/17 00:39 Stool Stool Culture - Final 07/07/17 00:39 Stool - Final 07/02/17 16:13 Blood Blood Culture - Final 07/02/17 15:53 Blood Blood Culture - Final Laboratory WBC 7.1 X10^3/uL (3.6-10.0) 07/13/17 05:20 RBC 3.92 X10^6/uL (3.5-5.4) 07/13/17 05:20 Hgb 10.5 g/dL (12.0-16.0) L 07/13/17 05:20 Hct 30.6 % (36.0-47.0) L 07/13/17 05:20 MCV 77.9 fL (80.0-100.0) L 07/13/17 05:20 MCH 26.7 pg (27.0-34.0) L 07/13/17 05:20 MCHC 34.2 g/dL (33.0-35.0) 07/13/17 05:20 RDW 16.4 % (11.6-16.5) 07/13/17 05:20 Plt Count 196 X10^3/uL (150.0-450.0) 07/13/17 05:20 Plt Count Comment Adequate (ADEQUATE) 07/06/17 04:55 MPV 9.7 fL (7.4-11.0) 07/13/17 05:20 Neut % (Auto) 47.5 % (42.0-75.0) 07/13/17 05:20 Lymph % (Auto) 43.2 % (21.0-51.0) 07/13/17 05:20 [place] % (Auto) 7.6 % (0.0-13.0) 07/13/17 05:20 Eos % (Auto) 1.1 % (0.9-2.9) 07/13/17 05:20 Baso % (Auto) 0.6 % (0.2-1.0) 07/13/17 05:20 Neut # (Auto) 3.4 x10^3/uL (2.2-4.8) 07/13/17 05:20 Lymph # (Auto) 3.1 X10^3/uL (1.3-2.9) H 07/13/17 05:20 [place] # (Auto) 0.5 x10^3/uL (0.3-0.8) 07/13/17 05:20 Eos # (Auto) 0.1 x10^3/uL (0.0-0.2) 07/13/17 05:20 Baso # (Auto) 0.0 X10^3/uL (0.0-0.1) 07/13/17 05:20 Absolute Nucleated RBC 0.2 /100WBC 07/13/17 05:20 Plt Morphology Comment Normal (NORMAL) 07/06/17 04:55 RBC Morphology Normal (NORMAL) 07/06/17 04:55 Sodium 132 mmol/L (136-145) L 07/13/17 05:20 Corrected Sodium 135 mmol/L (136-145) L 07/13/17 05:20 Potassium 5.2 mmol/L (3.5-5.1) H 07/13/17 05:20 Chloride 99 mmol/L (98-107) 07/13/17 05:20 Carbon Dioxide 25.2 mmol/L (21-32) 07/13/17 05:20 BUN 11 mg/dL (7-18) 07/13/17 05:20 Creatinine 0.96 mg/dL (0.55-1.02) 07/13/17 05:20 Est GFR (MDRD) Af Amer > 60 (>60) 07/13/17 05:20 Est GFR (MDRD) Non-Af > 60 (>60) 07/13/17 05:20 Glucose 234 mg/dL (65-99) H 07/13/17 05:20 POC Glucose (mg/dL) 230 mg/dL (65-99) H 07/13/17 16:25 Hemoglobin A1c 14.7 % 07/05/17 05:49 Calcium 7.8 mg/dL (8.5-10.1) L 07/13/17 05:20 Corrected Calcium 9.3 mg/dL (8.5-10.1) 07/13/17 05:20 Total Bilirubin 0.80 mg/dL (0.2-1.0) 07/13/17 05:20 AST 97 Units/L (15-37) H 07/13/17 05:20 ALT 84 Units/L (12-78) H 07/13/17 05:20 Alkaline Phosphatase 444 Units/L (46-116) H 07/13/17 05:20 Total Protein 8.3 g/dL (6.4-8.2) H 07/13/17 05:20 Albumin 2.1 g/dL (3.4-5.0) L 07/13/17 05:20 Globulin 6.2 g/dL (2.5-4.5) H 07/13/17 05:20 Albumin/Globulin Ratio 0.3 Ratio (1.1-2.1) L 07/13/17 05:20 Amylase 39 Units/L (25-115) 07/11/17 19:40 Lipase 78 Units/L (73-393) 07/11/17 19:40 Stool Description 30 g. brown/liquid 07/07/17 00:39 Stl Occult Blood (IFOB) Negative (NEGATIVE) 07/07/17 00:39 Stool for White Cells Positive (NEGATIVE) A 07/07/17 00:39 Stl C. diff Tox B Gene Negative (NEGATIVE) 07/07/17 00:39 Stl C. diff 027-NAP1-BI Negative (NEGATIVE) 07/07/17 00:39 Cryptosporid parvum Ag Negative (NEGATIVE) 07/07/17 00:39 E. histolytica Antigen Negative (NEGATIVE) 07/07/17 00:39 Giardia lamblia Ag Negative (NEGATIVE) 07/07/17 00:39 Hepatitis A IgM Ab Negative (Negative) 07/07/17 06:11 Hep Bs Antigen Negative (Negative) 07/07/17 06:11 Hep Bs Ag Confirmation TNP 07/07/17 06:11 Hep B Core IgM Ab Negative (Negative) 07/07/17 06:11 Hepatitis C Ab Index 0.06 IV 07/07/17 06:11 Hepatitis C Interp Negative (Negative) 07/07/17 06:11 Hepatitis Interpret See note 07/07/17 06:11 Tissue Pathology To follow 07/07/17 09:45
--- NOTE | 2017-07-13 18:11 | PCM.PROG ---
Progress Note - Progress Note for Day of Date: 07/12/17 - Subjective Subjective: IS BEING TREATED FOR CELLULITIS AND MULTIPLE WOUNDS ALL OVER HER BODY. SHE IS STATUS POST DEBRIDEMENT OF ULCER TO RIGHT FOOT TOES AND REPAIR OF HAMMER TOE. TODAY, SHE IS ALERT AND ORIENTED, LYING IN BED ON MORNING ROUNDS. TODAY, SHE IS NOTED WITH COMPLAINTS OF DIFFUSE ABDOMINAL PAIN AND ALSO CONTINUES WITH RIGHT FOOT PAIN. DRESSING TO RIGHT FOOT IS NOTED TO BE DRY AND INTACT. HER VITALS TODAY ARE 97.9-97-18-97%-124/64. LABS WERE OBTAINED. ABNORMAL LAB VALUES INCLUDE THE FOLLOWING: HGB 10.4, HCT 30.9, SODIUM 135, CREATININE 1.13, GLUCOSE 184, CALCIUM 7.7, AST 101, ALT 87, ALK PHOS 427, ALBUMIN 2.0, GLOBULIN 5.9. RIGHT FOOT WOUND CULTURE REPORTS GROWHT OF MRSA ANS STREP AGALACTIAE. SHE IS CURRENTLY RECEIVING BACTRIM DS AND MEROPENEM 1,000MG IV Q8H. AN ABDOMEN/PELVIS CT WAS OBTAINED TODAY AND REVEALED INFLAMMATORY CHANGES THROUGHOUT THE UPPER ABDOMEN AND RIGHT ABDOMEN WELL SCATTERED FREE FLUID WITH INFLAMMATORY CHANGES APPEARING TO POSSIBLY ORIGINATE FROM THE PANCREAS, WHICH IS VERY HETEROGENEOUS AND INDISTINCT IN APPEARANCE. THESE FINDINGS MAY REPRESNET ACUTE PANCREATITIS. CORRELATION WITH AMYLASE AND LIPASE VALUES IS RECOMMENDED. AMYLASE AND LIPASE LEVELS ARE WITHIN NORMAL LIMITS. I BELIEVE THAT THESE FINDING ARE RELATED TO MICROSCOPIC ABSCESS WITHIN THE ABDOMEN RATHER THAN PANCREATITIS. WE WILL CONTINUE WITH CURRENT PLAN OF CARE TODAY. WE WILL FOLLOW UP WITH AM LABS AND CONTINUE TO MONITOR PATIENT. - Past Medical Family Social History Past Med/Fam/Surg Hx: No changes since H&P Allergies: Allergies aspirin Allergy (Verified 07/02/17 16:15) - Review of Systems ROS: No change since H&P - Vital Signs and I&O's Vital Signs: Temperature 98.2 F Pulse Rate [Left Brachial] 96 Respiratory Rate 18 Blood Pressure [Right Arm] 146/65 Blood Pressure [Left Arm] 118/80 Blood Pressure 174/93 O2 Sat by Pulse Oximetry 96 Intake and Output: Intake & Output 07/11/17 07/12/17 07/13/17 07/14/17 11:59 11:59 11:59 11:59 Intake Total 1200 2040 2488 1000 Output Total 1005 2100 2000 0 Balance 195 -60 488 1000 - Physical Exam Oriented: Normal Eyes: Normal Ear: Normal Nose: Normal Throat: Normal Respiratory: Normal Cardiovascular: Normal : Normal Auscultation: Bowel Sounds: Normal Palpation: Normal Tenderness: Diffuse, Mild. negative: Rebound, Guarding, Rigidity Skin: Wound (dressing is intact , ) Musculoskeletal: Right, Foot, Tender Psychiatric: Normal Mood Description: Calm Affect: Normal Speech Pattern: Clear, Appropriate - Laboratory and Diagnostics Result Diagrams: 07/13/17 05:20 07/13/17 05:20 Labs: 07/07/17 09:45 Drainage Gram Stain - Final 07/07/17 09:45 Drainage Wound Culture - Final Methicillin Resis Staph Aureus Strep Agalactiae - (Group B) 07/07/17 00:39 Stool Stool Culture - Final 07/07/17 00:39 Stool - Final 07/02/17 16:13 Blood Blood Culture - Final 07/02/17 15:53 Blood Blood Culture - Final Laboratory WBC 7.1 X10^3/uL (3.6-10.0) 07/13/17 05:20 RBC 3.92 X10^6/uL (3.5-5.4) 07/13/17 05:20 Hgb 10.5 g/dL (12.0-16.0) L 07/13/17 05:20 Hct 30.6 % (36.0-47.0) L 07/13/17 05:20 MCV 77.9 fL (80.0-100.0) L 07/13/17 05:20 MCH 26.7 pg (27.0-34.0) L 07/13/17 05:20 MCHC 34.2 g/dL (33.0-35.0) 07/13/17 05:20 RDW 16.4 % (11.6-16.5) 07/13/17 05:20 Plt Count 196 X10^3/uL (150.0-450.0) 07/13/17 05:20 Plt Count Comment Adequate (ADEQUATE) 07/06/17 04:55 MPV 9.7 fL (7.4-11.0) 07/13/17 05:20 Neut % (Auto) 47.5 % (42.0-75.0) 07/13/17 05:20 Lymph % (Auto) 43.2 % (21.0-51.0) 07/13/17 05:20 [place] % (Auto) 7.6 % (0.0-13.0) 07/13/17 05:20 Eos % (Auto) 1.1 % (0.9-2.9) 07/13/17 05:20 Baso % (Auto) 0.6 % (0.2-1.0) 07/13/17 05:20 Neut # (Auto) 3.4 x10^3/uL (2.2-4.8) 07/13/17 05:20 Lymph # (Auto) 3.1 X10^3/uL (1.3-2.9) H 07/13/17 05:20 [place] # (Auto) 0.5 x10^3/uL (0.3-0.8) 07/13/17 05:20 Eos # (Auto) 0.1 x10^3/uL (0.0-0.2) 07/13/17 05:20 Baso # (Auto) 0.0 X10^3/uL (0.0-0.1) 07/13/17 05:20 Absolute Nucleated RBC 0.2 /100WBC 07/13/17 05:20 Plt Morphology Comment Normal (NORMAL) 07/06/17 04:55 RBC Morphology Normal (NORMAL) 07/06/17 04:55 Sodium 132 mmol/L (136-145) L 07/13/17 05:20 Corrected Sodium 135 mmol/L (136-145) L 07/13/17 05:20 Potassium 5.2 mmol/L (3.5-5.1) H 07/13/17 05:20 Chloride 99 mmol/L (98-107) 07/13/17 05:20 Carbon Dioxide 25.2 mmol/L (21-32) 07/13/17 05:20 BUN 11 mg/dL (7-18) 07/13/17 05:20 Creatinine 0.96 mg/dL (0.55-1.02) 07/13/17 05:20 Est GFR (MDRD) Af Amer > 60 (>60) 07/13/17 05:20 Est GFR (MDRD) Non-Af > 60 (>60) 07/13/17 05:20 Glucose 234 mg/dL (65-99) H 07/13/17 05:20 POC Glucose (mg/dL) 230 mg/dL (65-99) H 07/13/17 16:25 Hemoglobin A1c 14.7 % 07/05/17 05:49 Calcium 7.8 mg/dL (8.5-10.1) L 07/13/17 05:20 Corrected Calcium 9.3 mg/dL (8.5-10.1) 07/13/17 05:20 Total Bilirubin 0.80 mg/dL (0.2-1.0) 07/13/17 05:20 AST 97 Units/L (15-37) H 07/13/17 05:20 ALT 84 Units/L (12-78) H 07/13/17 05:20 Alkaline Phosphatase 444 Units/L (46-116) H 07/13/17 05:20 Total Protein 8.3 g/dL (6.4-8.2) H 07/13/17 05:20 Albumin 2.1 g/dL (3.4-5.0) L 07/13/17 05:20 Globulin 6.2 g/dL (2.5-4.5) H 07/13/17 05:20 Albumin/Globulin Ratio 0.3 Ratio (1.1-2.1) L 07/13/17 05:20 Amylase 39 Units/L (25-115) 07/11/17 19:40 Lipase 78 Units/L (73-393) 07/11/17 19:40 Stool Description 30 g. brown/liquid 07/07/17 00:39 Stl Occult Blood (IFOB) Negative (NEGATIVE) 07/07/17 00:39 Stool for White Cells Positive (NEGATIVE) A 07/07/17 00:39 Stl C. diff Tox B Gene Negative (NEGATIVE) 07/07/17 00:39 Stl C. diff 027-NAP1-BI Negative (NEGATIVE) 07/07/17 00:39 Cryptosporid parvum Ag Negative (NEGATIVE) 07/07/17 00:39 E. histolytica Antigen Negative (NEGATIVE) 07/07/17 00:39 Giardia lamblia Ag Negative (NEGATIVE) 07/07/17 00:39 Hepatitis A IgM Ab Negative (Negative) 07/07/17 06:11 Hep Bs Antigen Negative (Negative) 07/07/17 06:11 Hep Bs Ag Confirmation TNP 07/07/17 06:11 Hep B Core IgM Ab Negative (Negative) 07/07/17 06:11 Hepatitis C Ab Index 0.06 IV 07/07/17 06:11 Hepatitis C Interp Negative (Negative) 07/07/17 06:11 Hepatitis Interpret See note 07/07/17 06:11 Tissue Pathology To follow 07/07/17 09:45
[2017-07-13] MEDS: ELAVIL PO SCH (20:49)
[2017-07-13] MEDS: SINGULAIR TAB 10 MG PO SCH (20:49)
[2017-07-13] MEDS: SNACK - Diabetic Appropriate PO SCH (20:51)
--- NOTE | 2017-07-13 21:49 | PCM.PROG ---
Progress Note - Progress Note for Day of Date: 07/13/17 - Subjective Subjective: IS BEING TREATED FOR CELLULITIS AND MULTIPLE WOUNDS ALL OVER HER BODY. SHE IS STATUS POST DEBRIDEMENT OF ULCER TO RIGHT FOOT TOES AND REPAIR OF HAMMER TOE. TODAY, SHE IS ALERT AND ORIENTED, LYING IN BED ON MORNING ROUNDS. TODAY, SHE IS NOTED WITH COMPLAINTS OF DIFFUSE ABDOMINAL PAIN AND ALSO CONTINUES WITH RIGHT FOOT PAIN. DRESSING TO RIGHT FOOT IS NOTED TO BE DRY AND INTACT. HER VITALS TODAY ARE 98.5-89-20-95%-103/43. LABS WERE OBTAINED. ABNORMAL LAB VALUES INCLUDE THE FOLLOWING: HGB 10.5, HCT 30.6, SODIUM 132, POTASSIUM 5.2, GLUCOSE 234, CALCIUM 7.8, AST 97, ALT 84, ALK PHOS 444, TOTAL PROTEIN 8.3, ALBUMIN 2.1, GLOBULIN 6.2. SHE IS CURRENTLY RECEIVING BACTRIM DS AND MEROPENEM 1,000MG IV Q8H FOR MULTIPLE BACTERIA IN WOUNDS. WE WILL CONTINUE WITH CURRENT PLAN OF CARE TODAY. WE WILL FOLLOW UP WITH AM LABS AND CONTINUE TO MONITOR PATIENT. - Past Medical Family Social History Past Med/Fam/Surg Hx: No changes since H&P Allergies: Allergies aspirin Allergy (Verified 07/02/17 16:15) - Review of Systems ROS: No change since H&P - Vital Signs and I&O's Vital Signs: Temperature 98.2 F Pulse Rate [Left Brachial] 96 Respiratory Rate 18 Blood Pressure [Right Arm] 146/65 Blood Pressure [Left Arm] 118/80 Blood Pressure 174/93 O2 Sat by Pulse Oximetry 96 Intake and Output: Intake & Output 07/11/17 07/12/17 07/13/17 07/14/17 11:59 11:59 11:59 11:59 Intake Total 1200 2040 2488 1000 Output Total 1005 2100 2000 0 Balance 195 -60 488 1000 - Physical Exam Oriented: Normal Eyes: Normal Ear: Normal Nose: Normal Throat: Normal Respiratory: Normal Cardiovascular: Normal : Normal Auscultation: Bowel Sounds: Normal Palpation: Normal Tenderness: Diffuse, Mild. negative: Rebound, Guarding, Rigidity Skin: Wound (dressing is intact , ) Musculoskeletal: Right, Foot, Tender Psychiatric: Normal Mood Description: Calm Affect: Normal Speech Pattern: Clear, Appropriate - Laboratory and Diagnostics Result Diagrams: 07/13/17 05:20 07/13/17 05:20 Labs: 07/07/17 09:45 Drainage Gram Stain - Final 07/07/17 09:45 Drainage Wound Culture - Final Methicillin Resis Staph Aureus Strep Agalactiae - (Group B) 07/07/17 00:39 Stool Stool Culture - Final 07/07/17 00:39 Stool - Final 07/02/17 16:13 Blood Blood Culture - Final 07/02/17 15:53 Blood Blood Culture - Final Laboratory WBC 7.1 X10^3/uL (3.6-10.0) 07/13/17 05:20 RBC 3.92 X10^6/uL (3.5-5.4) 07/13/17 05:20 Hgb 10.5 g/dL (12.0-16.0) L 07/13/17 05:20 Hct 30.6 % (36.0-47.0) L 07/13/17 05:20 MCV 77.9 fL (80.0-100.0) L 07/13/17 05:20 MCH 26.7 pg (27.0-34.0) L 07/13/17 05:20 MCHC 34.2 g/dL (33.0-35.0) 07/13/17 05:20 RDW 16.4 % (11.6-16.5) 07/13/17 05:20 Plt Count 196 X10^3/uL (150.0-450.0) 07/13/17 05:20 Plt Count Comment Adequate (ADEQUATE) 07/06/17 04:55 MPV 9.7 fL (7.4-11.0) 07/13/17 05:20 Neut % (Auto) 47.5 % (42.0-75.0) 07/13/17 05:20 Lymph % (Auto) 43.2 % (21.0-51.0) 07/13/17 05:20 [place] % (Auto) 7.6 % (0.0-13.0) 07/13/17 05:20 Eos % (Auto) 1.1 % (0.9-2.9) 07/13/17 05:20 Baso % (Auto) 0.6 % (0.2-1.0) 07/13/17 05:20 Neut # (Auto) 3.4 x10^3/uL (2.2-4.8) 07/13/17 05:20 Lymph # (Auto) 3.1 X10^3/uL (1.3-2.9) H 07/13/17 05:20 [place] # (Auto) 0.5 x10^3/uL (0.3-0.8) 07/13/17 05:20 Eos # (Auto) 0.1 x10^3/uL (0.0-0.2) 07/13/17 05:20 Baso # (Auto) 0.0 X10^3/uL (0.0-0.1) 07/13/17 05:20 Absolute Nucleated RBC 0.2 /100WBC 07/13/17 05:20 Plt Morphology Comment Normal (NORMAL) 07/06/17 04:55 RBC Morphology Normal (NORMAL) 07/06/17 04:55 Sodium 132 mmol/L (136-145) L 07/13/17 05:20 Corrected Sodium 135 mmol/L (136-145) L 07/13/17 05:20 Potassium 5.2 mmol/L (3.5-5.1) H 07/13/17 05:20 Chloride 99 mmol/L (98-107) 07/13/17 05:20 Carbon Dioxide 25.2 mmol/L (21-32) 07/13/17 05:20 BUN 11 mg/dL (7-18) 07/13/17 05:20 Creatinine 0.96 mg/dL (0.55-1.02) 07/13/17 05:20 Est GFR (MDRD) Af Amer > 60 (>60) 07/13/17 05:20 Est GFR (MDRD) Non-Af > 60 (>60) 07/13/17 05:20 Glucose 234 mg/dL (65-99) H 07/13/17 05:20 POC Glucose (mg/dL) 227 mg/dL (65-99) H 07/13/17 19:48 Hemoglobin A1c 14.7 % 07/05/17 05:49 Calcium 7.8 mg/dL (8.5-10.1) L 07/13/17 05:20 Corrected Calcium 9.3 mg/dL (8.5-10.1) 07/13/17 05:20 Total Bilirubin 0.80 mg/dL (0.2-1.0) 07/13/17 05:20 AST 97 Units/L (15-37) H 07/13/17 05:20 ALT 84 Units/L (12-78) H 07/13/17 05:20 Alkaline Phosphatase 444 Units/L (46-116) H 07/13/17 05:20 Total Protein 8.3 g/dL (6.4-8.2) H 07/13/17 05:20 Albumin 2.1 g/dL (3.4-5.0) L 07/13/17 05:20 Globulin 6.2 g/dL (2.5-4.5) H 07/13/17 05:20 Albumin/Globulin Ratio 0.3 Ratio (1.1-2.1) L 07/13/17 05:20 Amylase 39 Units/L (25-115) 07/11/17 19:40 Lipase 78 Units/L (73-393) 07/11/17 19:40 Stool Description 30 g. brown/liquid 07/07/17 00:39 Stl Occult Blood (IFOB) Negative (NEGATIVE) 07/07/17 00:39 Stool for White Cells Positive (NEGATIVE) A 07/07/17 00:39 Stl C. diff Tox B Gene Negative (NEGATIVE) 07/07/17 00:39 Stl C. diff [id number] Negative (NEGATIVE) 07/07/17 00:39 Cryptosporid parvum Ag Negative (NEGATIVE) 07/07/17 00:39 E. histolytica Antigen Negative (NEGATIVE) 07/07/17 00:39 Giardia lamblia Ag Negative (NEGATIVE) 07/07/17 00:39 Hepatitis A IgM Ab Negative (Negative) 07/07/17 06:11 Hep Bs Antigen Negative (Negative) 07/07/17 06:11 Hep Bs Ag Confirmation TNP 07/07/17 06:11 Hep B Core IgM Ab Negative (Negative) 07/07/17 06:11 Hepatitis C Ab Index 0.06 IV 07/07/17 06:11 Hepatitis C Interp Negative (Negative) 07/07/17 06:11 Hepatitis Interpret See note 07/07/17 06:11 Tissue Pathology To follow 07/07/17 09:45 - Plan (1) MRSA (methicillin resistant Staphylococcus aureus) Status: Acute Plan: MEROPENEM IV, BACTRIM PO, CONTINUE TO MONITOR (2) Streptococcus agalactiae infection Status: Acute Plan: MEROPENEM IV, BACTRIM PO, CONTINUE TO MONITOR
[2017-07-14] MEDS: NS 1000 ML 1,000 ML IV SCH (01:49)
[2017-07-14] MEDS ORDERED: GLUCOPHAGE ONE (05:40)
[2017-07-14] MEDS: DILAUDID INJ IVP PRN ×2 (05:59→12:27)
[2017-07-14] MEDS: NEURONTIN TAB 600 MG PO SCH (05:59)
[2017-07-14] MEDS: MERREM VIAL 1,000 MG in NS 100 ML IV 100 ML IV SCH (05:59)
[2017-07-14] MEDS: GLUCOPHAGE PO SCH (06:00)
[2017-07-14] MEDS: VISTARIL PO PRN (06:00)
[2017-07-14 06:19] LABS: BASOPHILS % (AUTO) 0.7 % (0.2-1.0); EOSINOPHILS # (AUTO) 0.1 x10^3/uL (0.0-0.2); EOSINOPHILS % (AUTO) 1.3 % (0.9-2.9); HEMATOCRIT 30.6 % (36.0-47.0); HEMOGLOBIN 10.2 g/dL (12.0-16.0); LYMPHOCYTES # (AUTO) 2.6 X10^3/uL (1.3-2.9); LYMPHOCYTES % (AUTO) 38.5 % (21.0-51.0); MEAN CORPUSCULAR HEMOGLOBIN 26.3 pg (27.0-34.0); MEAN CORPUSCULAR HGB CONC 33.5 g/dL (33.0-35.0); MEAN CORPUSCULAR VOLUME 78.6 fL (80.0-100.0); MEAN PLATELET VOLUME 9.6 fL (7.4-11.0); MONOCYTES # (AUTO) 0.5 x10^3/uL (0.3-0.8); MONOCYTES % (AUTO) 7.1 % (0.0-13.0); NEUTROPHILS # (AUTO) 3.5 x10^3/uL (2.2-4.8); NEUTROPHILS % (AUTO) 52.4 % (42.0-75.0); PLATELET COUNT 197 X10^3/uL (150.0-450.0); RED BLOOD COUNT 3.89 X10^6/uL (3.5-5.4); RED CELL DISTRIBUTION WIDTH 16.3 % (11.6-16.5); WHITE BLOOD COUNT 6.8 X10^3/uL (3.6-10.0)
[2017-07-14 07:09] LABS: ALANINE AMINOTRANSFERASE 78 Units/L (12-78); ALBUMIN 2.2 g/dL (3.4-5.0); ALKALINE PHOSPHATASE 446 Units/L (46-116); ASPARTATE AMINO TRANSFERASE 86 Units/L (15-37); BLOOD UREA NITROGEN 9 mg/dL (7-18); CALCIUM 7.7 mg/dL (8.5-10.1); CARBON DIOXIDE 25.5 mmol/L (21-32); CHLORIDE 102 mmol/L (98-107); COR CA(FOR HYPOALB) 9.1 mg/dL (8.5-10.1); COR NA(FOR HYPERGLY) 135 mmol/L (136-145); CREATININE 0.81 mg/dL (0.55-1.02); SODIUM 134 mmol/L (136-145); TOTAL PROTEIN 7.8 g/dL (6.4-8.2); eGFR BLACK RACES > 60 (>60); eGFR NON BLACK RACES > 60 (>60)
[2017-07-14] MEDS: DIFLUCAN 200 MG IV PREMIX* 200 MG/100 ML BAG IV SCH (09:17)
[2017-07-14] MEDS: ZANTAC PO SCH (09:18)
[2017-07-14] MEDS: NORVASC TAB 5 MG PO SCH (09:18)
[2017-07-14] MEDS: BACTRIM DS TAB PO SCH (09:18)
[2017-07-14] MEDS: PROTONIX TAB 40 MG PO SCH (09:18)
[2017-07-14] MEDS: CARAFATE PO SCH (09:18)
[2017-07-14] MEDS: CYMBALTA PO SCH (09:20)
[2017-07-14] MEDS: GENTAMICIN TOPICAL CRM TOP SCH (09:22)
[2017-07-14 15:17] VITALS: BP 140/77
== END 2017-07-14 13:35 | disposition home health service (06) | DRG 572 ==
LOC: UNDOADMIN 10:42 → MED/SURG 10:42
PROVIDERS: ADMIT Internal Medicine; ATTEND Internal Medicine
PROC: 0JBQ0ZZ Excision of Right Foot Subcutaneous Tissue and Fascia, Open Approach (ICD-10-PCS; principal; 2017-07-07 09:00)
PROC: 0SN Lower Joints, Release (ICD-10-PCS; 2017-07-08)
DX: L03.031 Cellulitis of right toe (principal); M20.41 Other hammer toe(s) (acquired), right foot; M20.5X1 Other deformities of toe(s) (acquired), right foot; R62.7 Adult failure to thrive; E11.65 Type 2 diabetes mellitus with hyperglycemia; R53.83 Other fatigue; K21.9 Gastro-esophageal reflux disease without esophagitis; I10 Essential (primary) hypertension; I25.10 Atherosclerotic heart disease of native coronary artery without angina pectoris; B95.62 Methicillin resistant Staphylococcus aureus infection as the cause of diseases classified elsewhere; B95.1 Streptococcus, group B, as the cause of diseases classified elsewhere; J44.9 Chronic obstructive pulmonary disease, unspecified; F41.8 Other specified anxiety disorders; F32.89 Other specified depressive episodes; E78.2 Mixed hyperlipidemia; E11.40 Type 2 diabetes mellitus with diabetic neuropathy, unspecified; R26.89 Other abnormalities of gait and mobility
CPT/HCPCS: 36415; 71045; 73630; 73706; 74022; 74177; 76705; 80053; 80074; 82150; 82274; 82947; 83036; 83630; 83690; 85025; 87040; 87045; 87070; 87077; 87186; 87205; 87328; 87329; 87336; 87427; 87449; 87493; 99231; A4216; A4222; Q0169; Q0177; S0020; J0170; J1170; J1450; J1815; J2001; J2175; J2185; J2250; J3010; J3490; J7120